=== PATIENT | female | born 1960 | race Caucasian/White ===

== ENCOUNTER 2016-07-09 22:05 | Emergency (ER) | payer OTHER ==
[2016-07-09 22:19] VITALS: BP 135/86; PULSE 82; RESP 18; TEMP 98
[2016-07-09] MEDS ORDERED: HYDROmorphone 1 MG/ML 1 ML SYRINGE IM STA (22:43)
[2016-07-09] MEDS ORDERED: ONDANSETRON ODT 4 MG TAB PO STA (22:51)
--- NOTE | 2016-07-09 22:59 | ED ---
Back Pain HPI - General Chief Complaint: Back Pain/Injury Stated Complaint: Back Pain Time Seen by Provider: 07/09/16 22:22 Source: patient, RN notes reviewed Limitations: no limitations - History of Present Illness Initial Comments: Patient is a 55-year-old female presents to the emergency room for evaluation of low back pain. Patient states she has a history of chronic low back pain. Patient states she has on and off exacerbations of her low back pain every few months. Patient states she had an MRI of her lower back in March which results in degenerative disc disease and nerve impingement. Patient states over the past 4 days patient began developing left low back pain radiating to her buttocks. Patient states that she's had sciatica before and this feels similar. Patient denies any recent trauma to her back or falls. Patient denies numbness or tingling going down her legs. Patient denies anesthesia. Patient denies urinary or fecal incontinence. Patient states that she has Ava and tramadol at home. Patient states none of her pain medications are relieving her symptoms. - Related Data Home Medications Medication Instructions Recorded Confirmed Aspirin 81 mg PO DAILY 11/14/13 07/09/16 Levothyroxine Sodium [Synthroid] 137 mcg PO DAILY 11/14/13 07/09/16 Losartan-Hctz 50-12.5 mg [Hyzaar 1 each PO DAILY 11/14/13 07/09/16 50-12.5] Omeprazole [PriLOSEC] 20 mg PO AC-BRKFST 11/14/13 07/09/16 Previous Rx's Medication Instructions Recorded Hydrocodone/Acetaminophen [Ava 1 - 2 each PO Q4HR PRN #10 tab 11/16/13 5-325] Allergies Allergy/AdvReac Type Severity Reaction Status Date / Time prednisone Allergy Swelling Verified 07/09/16 22:18 propoxyphene napsylate Allergy Swelling Verified 07/09/16 22:18 [From [facility]-N 100] Review of Systems ROS Statement: Those systems with pertinent positive or pertinent negative responses have been documented in the HPI. ROS Other: All systems not noted in ROS Statement are negative. Past Medical History Past Medical History: Cancer, COPD, CVA/TIA, GERD/Reflux, Hypertension, Osteoarthritis (OA), Thyroid Disorder Additional Past Medical History / Comment(s): hx ulcer, thyroid cancer History of Any Multi-Drug Resistant Organisms: None Reported Past Surgical History: Back Surgery, Cholecystectomy, Orthopedic Surgery, Tubal Ligation Additional Past Surgical History / Comment(s): thyroidectomy, spinal fusion, rt shoulder surgery,rt foot suregery Past Anesthesia/Blood Transfusion Reactions: Motion Sickness, Postoperative Nausea & Vomiting (PONV) Past Psychological History: No Psychological Hx Reported Smoking Status: Never smoker Past Alcohol Use History: None Reported Past Drug Use History: None Reported - Past Family History Sister(s) Family Medical History: Deep Vein Thrombosis (DVT) General Exam - General Exam Comments Initial Comments: Sitting in exam room in no acute distress. Limitations: no limitations General appearance: alert, in no apparent distress Head exam: Present: atraumatic, normocephalic, normal inspection Eye exam: Present: normal appearance ENT exam: Present: normal exam Neck exam: Present: normal inspection Respiratory exam: Absent: respiratory distress Back exam: Present: normal inspection, tenderness (Tenderness on palpating over left sciatic notch). Absent: paraspinal tenderness, vertebral tenderness Expanded Back exam: Sciatic Notch Tenderness: Left, Positive Straight Leg Raise: Left Neurological exam: Present: alert, oriented X3, CN II-XII intact Psychiatric exam: Present: normal affect, normal mood Skin exam: Present: warm, dry, intact, normal color. Absent: rash Course Vital Signs 07/09/16 22:16 Temperature 98.0 F Pulse Rate 82 Respiratory 18 Rate Blood Pressure 135/86 O2 Sat by Pulse 97 Oximetry Medical Decision Making - Medical Decision Making Patient is a 55-year-old female presents to the emergency room for evaluation of acute on chronic exacerbation of low back pain. Patient's symptoms similar to her normal exacerbations. Patient has no neuro deficits. Patient is already on Ava and tramadol at home for pain. Patient is ALLERGIC to prednisone. Patient was given pain medication and advised to follow-up with primary care provider. Patient states she noticed intermittent numbness discussed with her. Return parameters discussed. Case discussed with Dr. Carpenter. Disposition Clinical Impression: Acute exacerbation of chronic low back pain Disposition: HOME SELF-CARE Condition: Good Instructions: Acute Low Back Pain (ED) Additional Instructions: Alternate ice and heat. Continue taking at home pain medications as needed. Please follow up with primary care provider in 1-2 days. If any new symptom arises or symptoms worsen, return to ER as soon as possible. Referrals: Britton Rangel DO [Primary Care Provider] - 1-2 days Time of Disposition: 22:59
== END 2016-07-09 23:05 | disposition home or self-care (01) ==
LOC: EC 22:05
DX: G89.29 Other chronic pain (principal); M54.5 Low back pain; E07.9 Disorder of thyroid, unspecified; I10 Essential (primary) hypertension; K21.9 Gastro-esophageal reflux disease without esophagitis; M19.90 Unspecified osteoarthritis, unspecified site; Z79.899 Other long term (current) drug therapy; Z86.73 Personal history of transient ischemic attack (TIA), and cerebral infarction without residual deficits; Z79.82 Long term (current) use of aspirin; Z88.5 Allergy status to narcotic agent; Z88.8 Allergy status to other drugs, medicaments and biological substances
CPT/HCPCS: 96372; 99283; J1170

== ENCOUNTER 2016-07-10 08:17 | Emergency (ER) | payer OTHER ==
[2016-07-10] MEDS ORDERED: DIAZEPAM 5 MG/ML 2 ML SYRINGE IVP STA (08:59)
[2016-07-10] MEDS ORDERED: HYDROmorphone 1 MG/ML 1 ML SYRINGE IVP STA (09:00)
[2016-07-10] MEDS ORDERED: ONDANSETRON 4 MG/2 ML VIAL IVP STA (09:00)
--- NOTE | 2016-07-10 09:04 | ED ---
Back Pain HPI - General Chief Complaint: Back Pain/Injury Stated Complaint: back pain Time Seen by Provider: 07/10/16 08:33 Source: patient, family, EMS, RN notes reviewed Mode of arrival: EMS Limitations: physical limitation - History of Present Illness Initial Comments: 55-year-old female presents emergency department via EMS chief complaint back pain. Patient states that the back pain started last few days. Patient was seen in emergency department last night given IM injection of pain meds. Patient states that at the edge off but states that she woke up in worse pain. Patient has a known back problem states that she had surgery [address] Herrera. She states she had a fusion performed. Patient states that in March she squatted down in her back locked up. Ever since she's had some increase in pain. She had recent MRI in April which showed progressive changes. Patient has an appointment coming up with her surgeon. Patient is on tramadol, Flexeril at home. Patient states he was given Medina in the past but states he was too strong and she did not like it. Patient denies any bowel bladder incontinence or retention. She states pain radiates always down her left leg. Patient currently has a boot on her right lower leg secondary to tendon surgery by Dr. Rondon. Patient states that this has been given her more issues since wearing the boot. - Related Data Home Medications Medication Instructions Recorded Confirmed Aspirin 81 mg PO DAILY 11/14/13 07/09/16 Levothyroxine Sodium [Synthroid] 137 mcg PO DAILY 11/14/13 07/09/16 Losartan-Hctz 50-12.5 mg [Hyzaar 1 each PO DAILY 11/14/13 07/09/16 50-12.5] Omeprazole [PriLOSEC] 20 mg PO AC-BRKFST 11/14/13 07/09/16 Previous Rx's Medication Instructions Recorded Hydrocodone/Acetaminophen [Medina 1 - 2 each PO Q4HR PRN #10 tab 11/16/13 5-325] Diazepam [Valium] 5 mg PO BID #14 tab 07/10/16 HYDROcodone/APAP 7.5-325MG [Medina 1 tab PO Q6HR PRN #20 tab 07/10/16 7.5-325] Ondansetron Odt [Zofran Odt] 4 mg PO Q8HR PRN #10 tab 07/10/16 methylPREDNISolone [Medrol Dose 4 mg PO DIRECTED #1 pack 07/10/16 Pack] Allergies Allergy/AdvReac Type Severity Reaction Status Date / Time prednisone Allergy Swelling Verified 07/10/16 08:54 propoxyphene napsylate Allergy Swelling Verified 07/10/16 08:54 [[facility] Review of Systems ROS Statement: Those systems with pertinent positive or pertinent negative responses have been documented in the HPI. ROS Other: All systems not noted in ROS Statement are negative. Past Medical History Past Medical History: Cancer, COPD, CVA/TIA, GERD/Reflux, Hypertension, Osteoarthritis (OA), Thyroid Disorder Additional Past Medical History / Comment(s): hx ulcer, thyroid cancer History of Any Multi-Drug Resistant Organisms: None Reported Past Surgical History: Back Surgery, Cholecystectomy, Orthopedic Surgery, Tubal Ligation Additional Past Surgical History / Comment(s): thyroidectomy, spinal fusion, rt shoulder surgery,rt foot suregery Past Anesthesia/Blood Transfusion Reactions: Motion Sickness, Postoperative Nausea & Vomiting (PONV) Past Psychological History: No Psychological Hx Reported Smoking Status: Never smoker Past Alcohol Use History: None Reported Past Drug Use History: None Reported - Past Family History Sister(s) Family Medical History: Deep Vein Thrombosis (DVT) General Exam Limitations: physical limitation General appearance: alert, in no apparent distress Head exam: Present: atraumatic, normocephalic, normal inspection Respiratory exam: Present: normal lung sounds bilaterally. Absent: respiratory distress, wheezes, rales, rhonchi, stridor Cardiovascular Exam: Present: regular rate, normal rhythm, normal heart sounds. Absent: systolic murmur, diastolic murmur, rubs, gallop, clicks GI/Abdominal exam: Present: soft, normal bowel sounds. Absent: distended, tenderness, guarding, rebound, rigid Extremities exam: Present: other (Boot noted to the right lower extremity Refill less than 2 seconds of lower extremity no rashes noted) Back exam: Present: tenderness (Moderate tonsillar left low back), muscle spasm , paraspinal tenderness. Absent: full ROM (Decreased range of motion secondary to pain), vertebral tenderness Neurological exam: Present: alert, oriented X3, CN II-XII intact, reflexes normal. Absent: motor sensory deficit Course Vital Signs 07/10/16 07/10/16 08:47 09:29 Temperature 97.5 F L Pulse Rate 104 H 98 Respiratory 20 14 Rate Blood Pressure 151/67 117/61 O2 Sat by Pulse 98 100 Oximetry Medical Decision Making - Medical Decision Making 55-year-old female presented emergency from for low back pain. Patient states pain is resolved at this time. Patient's pain is consistent with L5-S1 nerve impingement. Patient does have changes noted on x-ray and previous MRI. Patient's pain may be exacerbated by wearing her boot on her right leg. She is walking awkwardly. Patient doesn't appointment with Dr. Leal coming up. Return parameters were discussed. Disposition Clinical Impression: Acute exacerbation of chronic low back pain, Lumbar radiculopathy, acute Disposition: HOME SELF-CARE Condition: Stable Instructions: Acute Low Back Pain (ED) Additional Instructions: Please return to the Emergency Department if symptoms worsen or any other concerns. Prescriptions: Diazepam [Valium] 5 mg PO BID #14 tab HYDROcodone/APAP 7.5-325MG [Medina 7.5-325] 1 tab PO Q6HR PRN #20 tab PRN Reason: Pain Ondansetron Odt [Zofran Odt] 4 mg PO Q8HR PRN #10 tab PRN Reason: Nausea methylPREDNISolone [Medrol Dose Pack] 4 mg PO DIRECTED #1 pack Time of Disposition: 10:22
--- NOTE | 2016-07-10 10:04 | XR ---
EXAMINATION TYPE: XR lumbosacral spine min 4V DATE OF EXAM: 07/10/2016 10:01 AM COMPARISON: MRI 05/01/2016 HISTORY: Low back spasms TECHNIQUE: 5 view lumbar spine FINDINGS: There is pedicle screws present L5-S1. There 5 lumbar-type bodies. A through L4 pedicles ar e intact. No spondylolytic defects are evident. Laminectomy has been performed at L5. There is narrow ing at L5-S1. IMPRESSION: 1. Post fixation L5-S1
[2016-07-10 11:00] VITALS: BP 102/57; PULSE 103; RESP 18; TEMP 97.9
== END 2016-07-10 11:00 | disposition home or self-care (01) ==
LOC: EC 08:17
DX: M54.16 Radiculopathy, lumbar region (principal); G89.29 Other chronic pain; I10 Essential (primary) hypertension; E07.9 Disorder of thyroid, unspecified; M19.90 Unspecified osteoarthritis, unspecified site; K21.9 Gastro-esophageal reflux disease without esophagitis; Z98.890 Other specified postprocedural states; Z88.5 Allergy status to narcotic agent; Z88.8 Allergy status to other drugs, medicaments and biological substances; Z79.82 Long term (current) use of aspirin; Z79.899 Other long term (current) drug therapy; Z85.850 Personal history of malignant neoplasm of thyroid
CPT/HCPCS: 99284; 96374; 96375 ×2; 72110; J3360; J2405; J1170

== ENCOUNTER → 2017-01-11 | Outpatient (CLI) | payer OTHER ==
[2017-01-11 17:30] LABS: EKG EKG PERFORMED
[2017-01-11 17:50] LABS: Basophils # (A) 0.1 k/uL (0-0.2); Basophils % (A) 1 %; CH 30.9; CHCM 34.4; Eosinophils # (A) 0.3 k/uL (0-0.7); Eosinophils % (A) 4 %; HDW 2.75; HGB 13.8 gm/dL (11.4-16.0); Luc # (Auto) 0.23; Luc % (Auto) 3; Lymphocytes # (A) 2.1 k/uL (1.0-4.8); Lymphocytes % (A) 32 %; MCH 30.4 pg (25.0-35.0); MCHC 33.6 g/dL (31.0-37.0); MCV 90.3 fL (80.0-100.0); Mean Platelet Volume 8.4; Monocytes # (A) 0.4 k/uL (0-1.0); Monocytes % (A) 6 %; Neutrophils # (A) 3.6 k/uL (1.3-7.7); Neutrophils % (A) 54 %; RBC 4.54 m/uL (3.80-5.40); RDW 14.3 % (11.5-15.5); WBC 6.6 k/uL (3.8-10.6); WBC (Perox) 6.57
[2017-01-11 17:53] LABS: Appearance,Urine Clear (Clear); Bilirubin,Urine Negative (Negative); Glucose,Urine (UA) Negative (Negative); Ketones,Urine Negative (Negative); Leukocyte Esterase,Urine Small (Negative); Nitrite,Urine Negative (Negative); PH, Urine 6.5 (5.0-8.0); Particle Count 3668; Protein,Urine Negative (Negative); RBC,Urine 1 /hpf (0-5); Specific Gravity,Urine 1.008 (1.001-1.035); Squamous Epithelial Cell,Urine 7 /hpf (0-4); UA Billing (MACRO vs. MICRO) MICRO; Urobilinogen,Urine <2.0 mg/dL (<2.0); WBC,Urine 5 /hpf (0-5)
[2017-01-11 17:58] LABS: Partial Thromboplastin Time 24.3 sec (22.0-30.0); Prothrombin Time 9.9 sec (9.0-12.0)
[2017-01-11 18:16] LABS: ALT 44 U/L (9-52); AST 25 U/L (14-36); Alkaline Phosphatase 68 U/L (38-126); Anion Gap 10 mmol/L; Blood Urea Nitrogen 11 mg/dL (7-17); Calcium 9.7 mg/dL (8.4-10.2); Carbon Dioxide 35 mmol/L (22-30); Chloride 99 mmol/L (98-107); Glucose 95 mg/dL (74-99); Non-African American GFR(MDRD) >60 (>60 ml/min/1.73 sqM); Potassium 3.2 mmol/L (3.5-5.1); Sodium 144 mmol/L (137-145); Total Bilirubin 0.3 mg/dL (0.2-1.3); Total Protein 7.4 g/dL (6.3-8.2)
== END | disposition home or self-care (01) ==
LOC: LABWHC1 17:19
DX: M48.00 Spinal stenosis, site unspecified (principal)
CPT/HCPCS: 36415; 80053; 81001; 85025; 85610; 85730; 93005

== ENCOUNTER → 2017-02-22 | Outpatient (CLI) | payer OTHER ==
--- NOTE | 2017-02-22 12:14 | XR ---
EXAMINATION TYPE: XR lumbar spine 2 or 3V DATE OF EXAM: 02/22/2017 CLINICAL HISTORY: Lumbar fusion surgery 3 weeks ago. TECHNIQUE: Frontal and lateral images of the lumbar spine are obtained. COMPARISON: Lumbar spine x-ray July 10, 2016 FINDINGS: There are 5 lumbar type vertebral bodies redemonstrated. There is interval removal of prio r posterior fusion hardware. There is new metallic disc material with bilateral posterior interpedicu lar rods and screws at L4-L5 level. High density material lumbosacral junction is redemonstrated. Ali gnment is stable and satisfactory. Vertebral body heights and disc space heights are fairly well-main tained. There are laminectomy defects and spinous process resection in lower lumbar levels. Cholecyst ectomy clips are redemonstrated. IMPRESSION: New surgical change L4-L5 level with stable and satisfactory alignment noted.
== END ==
LOC: RADXRMAIN 11:36
DX: M47.817 Spondylosis without myelopathy or radiculopathy, lumbosacral region (principal)
CPT/HCPCS: 72100

== ENCOUNTER → 2017-04-09 | Outpatient (CLI) | payer OTHER ==
--- NOTE | 2017-04-09 11:35 | XR ---
Lumbar spine HISTORY: Low back pain 3 views of the lumbar spine correlated to prior exam 02/22/2017 Postop changes status post lumbar fusion L4-5 are again noted. Surgical clips are present in the righ t upper quadrant. Bone mineralization is reduced. Lumbar vertebral bodies show stable height and alig nment. Prior fusion change at L5-S1 is again seen. Sclerosis in the posterior elements of the lumbar spine compatible with facet arthropathy. Loss of disc height present at L2-3, L1-2. Multilevel spondy losis. IMPRESSION: Stable postoperative findings. Degenerative disc disease, facet arthropathy, osteopenia
== END | disposition home or self-care (01) ==
LOC: LABWHC1 09:34
PROVIDERS: ATTEND Physician Assistant
DX: M51.36 Other intervertebral disc degeneration, lumbar region (principal); M46.96 Unspecified inflammatory spondylopathy, lumbar region; M85.88 Other specified disorders of bone density and structure, other site
CPT/HCPCS: 72100

== ENCOUNTER → 2017-06-07 | Outpatient (CLI) | payer OTHER ==
--- NOTE | 2017-06-07 15:34 | BD ---
EXAMINATION TYPE: MG DEXA axial skeleton. DATE OF EXAM: 06/07/2017 COMPARISON: 2014 CLINICAL HISTORY: disorder of bone Height: 5'3 /2 Weight: 168 FRAX RISK QUESTIONS: Alcohol (3 or more units per day): no Family History (Parent hip fracture): no Glucocorticoids (More than 3mos): no (Ex: prednisone, prednisolone, methylprednisolone, dexamethasone, and hydrocortisone). History of Fracture in Adulthood: yes Secondary Osteoporosis: 1. Type 1 Diabetes: no 2. Hyperthyroidism: no 3. Menopause before 45: no 4. Malnutrition: no 5. Chronic liver disease: no Rheumatoid Arthritis: no Current Tobacco Use: no RISK FACTORS HISTORY OF: Surgery to Spine When: 2017 Family History of Osteoporosis: Active: Diet low in dairy products/other sources of calcium: Postmenopausal woman: MEDICATIONS: Thyroid Medications: Which medication: Levothyroxine How Lon years Additional Medications: blood pressure, cholesterol, neurotin, Additional History: degenerative discs, thyroid cancer EXAM MEASUREMENTS: Bone mineral densitometry was performed using the [employer] System. Bone mineral density about the R hip (g/cm2): 0.861 Bone mineral density about the L hip (g/cm2): 0.861 T Score values are as follows: -----R Neck: -0.1 -----L Neck: -0.1 -----R Total: -0.7 -----L Total: -0.7 Bone mineral density has: Decreased -1.3% since study of: 12/24/2014 IMPRESSION: Normal (Values between +1 and -1 indicate normal bone mass). Consider repeating this study in 5 year s or sooner if there is some new clinical indication. NOTE: T-SCORE=SD OF THE YOUNG ADULT MEAN.
--- NOTE | 2017-06-08 10:01 | MM ---
Reason for exam: screening (asymptomatic). Last mammogram was performed 1 year and 1 month ago. History: Patient is postmenopausal and has history of other cancer at age 48. Family history of breast cancer in maternal grandmother. Benign ultrasound-guided cyst aspiration of the left breast, January 02, 2003. Cyst aspiration of the left breast. Took hormonal contraceptives for 5 years beginning at age 20. Taking other hormone. Physical Findings: A clinical breast exam by your physician is recommended on an annual basis and results should be correlated with mammographic findings. MG 3D Screening Mammo W/Cad Bilateral CC and MLO view(s) were taken. Prior study comparison: April 30, 2016, bilateral MG screening mammo w CAD. December 24, 2014, bilateral MG screening mammo w CAD. The breast tissue is heterogeneously dense. This may lower the sensitivity of mammography. Previous mammotome biopsy in the left breast. There is chronic nodularity in the left breast. There is no discrete abnormality. No significant changes when compared with prior studies. ASSESSMENT: Benign, BI-RAD 2 RECOMMENDATION: Routine screening mammogram of both breasts in 1 year.
== END | disposition home or self-care (01) ==
LOC: RADMAMWWP 13:40
PROVIDERS: ATTEND Obstetrics & Gynecology
DX: Z12.31 Encounter for screening mammogram for malignant neoplasm of breast (principal); Z13.820 Encounter for screening for osteoporosis; M89.9 Disorder of bone, unspecified; Z87.39 Personal history of other diseases of the musculoskeletal system and connective tissue
CPT/HCPCS: 77063; 77067; 77080

== ENCOUNTER → 2017-06-14 | Outpatient (CLI) | payer OTHER ==
--- NOTE | 2017-06-14 21:53 | MR ---
EXAMINATION TYPE: MR lumbar spine wo con DATE OF EXAM: 06/14/2017 5:50 PM COMPARISON: NONE HISTORY: Low back pressure, surgery Jan 2017 Multiplanar, MultiSpin echo imaging of the lumbar spine was performed. L1-L2: Normal disc appearance without desiccation. No herniation, protrusion or disc bulging. No ca nal stenosis is present. Foramina are patent bilaterally. L2-L3: Mild disc desiccation. No significant disc bulging. No herniation protrusion or central stenos is. Neural foramina are patent bilaterally. L3-L4: Mild disc desiccation. No significant disc bulging. No herniation protrusion or central stenos is. Neural foramina are patent bilaterally. L4-L5: Decompressive laminectomy with pedicular screws. Extensive streak artifact limits evaluation. Intervertebral vertebral body spacer. Alignment is anatomic. No definite evidence for recurrent or re sidual disease although the lack of contrast limits evaluation. L5-S1: Decompressive laminectomy with pedicular screws. Extensive streak artifact limits evaluation. Intervertebral vertebral body spacer. Alignment is anatomic. No definite evidence for recurrent or re sidual disease although the lack of contrast limits evaluation. Lumbar segments are intact. No paraspinal masses are identified. Scattered vertebral Hemangiomas not ed. Conus medullaris has a normal appearance. IMPRESSION: 1. Mild degenerative disc disease and disc bulging at L2-3 and L3-4. 2. Postoperative changes at L4-5 and L5-S1 as discussed above.
== END | disposition home or self-care (01) ==
LOC: RADMRIMAIN 16:26
DX: M51.16 Intervertebral disc disorders with radiculopathy, lumbar region (principal); Z98.890 Other specified postprocedural states
CPT/HCPCS: 72148

== ENCOUNTER → 2017-06-14 | Outpatient (CLI) | payer OTHER ==
--- NOTE | 2017-06-15 10:32 | XR ---
EXAMINATION TYPE: XR lumbar spine 2 or 3V DATE OF EXAM: 06/14/2017 COMPARISON: NONE HISTORY: Lumbar spondylosis with radiculopathy TECHNIQUE: Three-view lumbar spine FINDINGS: Pedicle screws and fixation rods are present L4-L5. Laminectomy has been performed L4-L5. The L1-L3 pedicles are intact. Some disc space narrowing at L1-3 is present. There is a disc spacer a t L4-5. Fusion may be present L5-S1 disc space. IMPRESSION: 1. Postsurgical changes through the lumbar spine. 2. Acute changes are not evident.
== END | disposition home or self-care (01) ==
LOC: RADXRMAIN 16:10
DX: M47.26 Other spondylosis with radiculopathy, lumbar region (principal); Z98.890 Other specified postprocedural states
CPT/HCPCS: 72100

== ENCOUNTER → 2017-08-17 | Outpatient (CLI) | payer OTHER ==
[2017-08-17 10:54] LABS: Basophils # (A) 0.1 k/uL (0-0.2); Basophils % (A) 1 %; Eosinophils # (A) 0.2 k/uL (0-0.7); Eosinophils % (A) 3 %; HGB 13.4 gm/dL (11.4-16.0); Lymphocytes % (A) 33 %; MCH 29.7 pg (25.0-35.0); MCHC 34.5 g/dL (31.0-37.0); Mean Platelet Volume 7.9; Monocytes # (A) 0.3 k/uL (0-1.0); Monocytes % (A) 6 %; Neutrophils # (A) 3.3 k/uL (1.3-7.7); Neutrophils % (A) 55 %; Platelet Count 223 k/uL (150-450); RBC 4.54 m/uL (3.80-5.40); WBC 6.1 k/uL (3.8-10.6)
[2017-08-17 11:40] LABS: ALT 23 U/L (9-52); AST 19 U/L (14-36); Albumin 4.1 g/dL (3.5-5.0); Alkaline Phosphatase 90 U/L (38-126); Anion Gap 10 mmol/L; Blood Urea Nitrogen 16 mg/dL (7-17); Calcium 9.6 mg/dL (8.4-10.2); Carbon Dioxide 35 mmol/L (22-30); Chloride 96 mmol/L (98-107); Glucose 97 mg/dL (74-99); Potassium 3.7 mmol/L (3.5-5.1); Sodium 141 mmol/L (137-145); Total Bilirubin 0.3 mg/dL (0.2-1.3)
[2017-08-17 11:55] LABS: T4, Free (Free Thyroxine) 1.77 ng/dL (0.78-2.19)
[2017-08-17 16:16] LABS: Vitamin D 25 Hydroxy 36.8 ng/mL (30.0-100.0)
== END | disposition home or self-care (01) ==
LOC: LABWHC1 10:00
PROVIDERS: ATTEND Physician Assistant
DX: E55.9 Vitamin D deficiency, unspecified (principal); R41.3 Other amnesia
CPT/HCPCS: 36415; 80053; 82306; 82607; 84207; 84439; 84443; 84481; 85025

== ENCOUNTER 2017-10-31 11:09 | Observation (INO) | payer OTHER ==
[2017-10-31] MEDS ORDERED: SODIUM CHLORIDE 0.9% 1,000 ML IV STA (12:09)
--- NOTE | 2017-10-31 12:21 | ED ---
General Adult HPI - General Chief complaint: Recheck/Abnormal Lab/Rx Stated complaint: Abnormal EKG Time Seen by Provider: 10/31/17 12:02 Source: patient, RN notes reviewed Mode of arrival: wheelchair Limitations: no limitations - History of Present Illness Initial comments: Patient's a 56-year-old female presents emergency room today with a chief complaint of neck and chest pain. Patient does admit that over last 3 or 4 days she's noticed that when she bends forward she feels that it is coming off her airway. She feels like there is a mass in her neck. She has mid to a history of thyroid cancer. States part of her thyroid was removed. Patient states when she stands straight back up the symptoms are relieved. She doesn't that last night she was woken up with chest pain. States woke or carotid sleep. She does admit that she still feels some discomfort to the left side of the chest wall. She does admit that she went to the clinic this morning had a chest x-ray performed. She states she was advised coming here to the emergency room. She discussed with her family physician as well. Patient currently rates the chest discomfort 2/10. Denies any neck pain at this time. She does admit that 2 days ago when she had the neck pain she then coughed and a blood clot come out. Patient denies any recent fever, chills, back pain, abdominal pain, nausea or vomiting, numbness or tingling, dysuria or hematuria, constipation or diarrhea, headaches or visual changes, or any other complaints. - Related Data Home Medications Medication Instructions Recorded Confirmed Aspirin 81 mg PO DAILY 11/14/13 10/31/17 Gabapentin 600 mg PO TID 10/31/17 10/31/17 Levothyroxine Sodium [Synthroid] 125 mcg PO DAILY 10/31/17 10/31/17 Losartan/Hydrochlorothiazide 1 tab PO DAILY 10/31/17 10/31/17 [Hyzaar 100-12.5 Tablet] Pantoprazole Sodium [Protonix] 40 mg PO BID 10/31/17 10/31/17 Pravastatin Sodium [Pravachol] 20 mg PO HS 10/31/17 10/31/17 Allergies Allergy/AdvReac Type Severity Reaction Status Date / Time propoxyphene napsylate Allergy Swelling Verified 10/31/17 11:48 [From Darvocet-N 100] adhesive tape AdvReac Itching Verified 10/31/17 11:48 Review of Systems ROS Statement: Those systems with pertinent positive or pertinent negative responses have been documented in the HPI. ROS Other: All systems not noted in ROS Statement are negative. Past Medical History Past Medical History: Cancer, COPD, CVA/TIA, GERD/Reflux, Hypertension, Osteoarthritis (OA), Thyroid Disorder Additional Past Medical History / Comment(s): hx ulcer, thyroid cancer History of Any Multi-Drug Resistant Organisms: None Reported Past Surgical History: Back Surgery, Cholecystectomy, Orthopedic Surgery, Tubal Ligation Additional Past Surgical History / Comment(s): thyroidectomy, spinal fusion, rt shoulder surgery,rt foot suregery Past Anesthesia/Blood Transfusion Reactions: Motion Sickness, Postoperative Nausea & Vomiting (PONV) Past Psychological History: No Psychological Hx Reported Smoking Status: Never smoker Past Alcohol Use History: None Reported Past Drug Use History: None Reported - Past Family History Sister(s) Family Medical History: Deep Vein Thrombosis (DVT) General Exam - General Exam Comments Initial Comments: General: The patient is awake and alert, in no distress, and does not appear acutely ill. Eye: Pupils are equal, round and reactive to light, extra-ocular movements are intact. No nystagmus. There is normal conjunctiva bilaterally. No signs of icterus. Ears, nose, mouth and throat: There are moist mucous membranes and no oral lesions. Neck: The neck is supple, there is no tenderness or JVD. Cardiovascular: There is a regular rate and rhythm. No murmur, rub or gallop is appreciated. Respiratory: Lungs are clear to auscultation, respirations are non-labored, breath sounds are equal. No wheezes, stridor, rales, or rhonchi. Gastrointestinal: Soft, non-distended, non-tender abdomen without masses or organomegaly noted. There is no rebound or guarding present. No CVA tenderness. Musculoskeletal: Normal ROM, no tenderness. Strength 5/5. Sensation intact. Pulses equal bilaterally 2+. Neurological: A&O x 3. CN II-XII intact, There are no obvious motor or sensory deficits. Coordination appears grossly intact. Speech is normal. Skin: Skin is warm and dry and no rashes or lesions are noted. Psychiatric: Cooperative, appropriate mood & affect, normal judgment. Limitations: no limitations Course Vital Signs 10/31/17 10/31/17 10/31/17 11:14 12:36 13:42 Temperature 97.9 F 97.0 F L Pulse Rate 70 69 Respiratory 18 18 18 Rate Blood Pressure 139/80 145/82 O2 Sat by Pulse 100 100 Oximetry EKG Findings - EKG Comments: EKG Findings:: EKG performed at 1311: Shows normal sinus rhythm at 60 bpm. AL interval 164. QRS 90. QT/QTc 440/440. No acute ST changes. Medical Decision Making - Medical Decision Making Patient's a potassium 3.2. Patient's cardiac enzymes are negative. EKG shows normal acute changes. CT of the chest is negative for any evidence of a PE. No abnormalities seen in the CT of the neck to cover patient's symptoms. She is resting comfortably. Patient will be admitted for serial enzymes that she had chest pain that woke her up out of sleep last night. - Lab Data Result diagrams: 10/31/17 12:58 10/31/17 12:58 Lab Results 10/31/17 10/31/17 10/31/17 Range/Units 12:58 12:58 12:58 WBC 5.2 (3.8-10.6) k/uL RBC 4.92 (3.80-5.40) m/uL Hgb 14.6 (11.4-16.0) gm/dL Hct 41.4 (34.0-46.0) % MCV 84.1 (80.0-100.0) fL MCH 29.8 (25.0-35.0) pg MCHC 35.4 (31.0-37.0) g/dL RDW 13.0 (11.5-15.5) % Plt Count 210 (150-450) k/uL Neutrophils % 54 % Lymphocytes % 35 % Monocytes % 6 % Eosinophils % 2 % Basophils % 1 % Neutrophils # 2.8 (1.3-7.7) k/uL Lymphocytes # 1.8 (1.0-4.8) k/uL Monocytes # 0.3 (0-1.0) k/uL Eosinophils # 0.1 (0-0.7) k/uL Basophils # 0.0 (0-0.2) k/uL PT (9.0-12.0) sec INR (<1.2) APTT (22.0-30.0) sec Sodium 142 (137-145) mmol/L Potassium 3.2 L (3.5-5.1) mmol/L Chloride 95 L (98-107) mmol/L Carbon Dioxide 34 H (22-30) mmol/L Anion Gap 13 mmol/L BUN 18 H (7-17) mg/dL Creatinine 0.64 (0.52-1.04) mg/dL Est GFR (CKD-EPI)AfAm >90 (>60 ml/min/1.73 sqM) Est GFR (CKD-EPI)NonAf >90 (>60 ml/min/1.73 sqM) Glucose 85 (74-99) mg/dL Calcium 9.5 (8.4-10.2) mg/dL Total Bilirubin 0.4 (0.2-1.3) mg/dL AST 26 (14-36) U/L ALT 36 (9-52) U/L Alkaline Phosphatase 74 (38-126) U/L Total Creatine Kinase 209 H (30-135) U/L CK-MB (CK-2) 2.5 H* (0.0-2.4) ng/mL CK-MB (CK-2) Rel Index 1.2 Troponin I <0.012 (0.000-0.034) ng/mL Total Protein 7.4 (6.3-8.2) g/dL Albumin 4.5 (3.5-5.0) g/dL 10/31/17 Range/Units 12:58 WBC (3.8-10.6) k/uL RBC (3.80-5.40) m/uL Hgb (11.4-16.0) gm/dL Hct (34.0-46.0) % MCV (80.0-100.0) fL MCH (25.0-35.0) pg MCHC (31.0-37.0) g/dL RDW (11.5-15.5) % Plt Count (150-450) k/uL Neutrophils % % Lymphocytes % % Monocytes % % Eosinophils % % Basophils % % Neutrophils # (1.3-7.7) k/uL Lymphocytes # (1.0-4.8) k/uL Monocytes # (0-1.0) k/uL Eosinophils # (0-0.7) k/uL Basophils # (0-0.2) k/uL PT 9.8 (9.0-12.0) sec INR 1.0 (<1.2) APTT 24.2 (22.0-30.0) sec Sodium (137-145) mmol/L Potassium (3.5-5.1) mmol/L Chloride (98-107) mmol/L Carbon Dioxide (22-30) mmol/L Anion Gap mmol/L BUN (7-17) mg/dL Creatinine (0.52-1.04) mg/dL Est GFR (CKD-EPI)AfAm (>60 ml/min/1.73 sqM) Est GFR (CKD-EPI)NonAf (>60 ml/min/1.73 sqM) Glucose (74-99) mg/dL Calcium (8.4-10.2) mg/dL Total Bilirubin (0.2-1.3) mg/dL AST (14-36) U/L ALT (9-52) U/L Alkaline Phosphatase (38-126) U/L Total Creatine Kinase (30-135) U/L CK-MB (CK-2) (0.0-2.4) ng/mL CK-MB (CK-2) Rel Index Troponin I (0.000-0.034) ng/mL Total Protein (6.3-8.2) g/dL Albumin (3.5-5.0) g/dL Disposition Clinical Impression: Chest pain Disposition: ADMITTED IP TO THIS [facility] Condition: Stable Is patient prescribed a controlled substance at d/c from ED?: No Referrals: Britton Rangel DO [Primary Care Provider] - 1-2 days Time of Disposition: 15:15
[2017-10-31 13:15] LABS: Basophils % (A) 1 %; Eosinophils # (A) 0.1 k/uL (0-0.7); Eosinophils % (A) 2 %; HCT 41.4 % (34.0-46.0); HGB 14.6 gm/dL (11.4-16.0); Lymphocytes # (A) 1.8 k/uL (1.0-4.8); Lymphocytes % (A) 35 %; MCH 29.8 pg (25.0-35.0); MCHC 35.4 g/dL (31.0-37.0); MCV 84.1 fL (80.0-100.0); Monocytes # (A) 0.3 k/uL (0-1.0); Monocytes % (A) 6 %; Neutrophils # (A) 2.8 k/uL (1.3-7.7); Neutrophils % (A) 54 %; Platelet Count 210 k/uL (150-450); RBC 4.92 m/uL (3.80-5.40); WBC 5.2 k/uL (3.8-10.6)
[2017-10-31 13:22] LABS: Partial Thromboplastin Time 24.2 sec (22.0-30.0); Prothrombin Time 9.8 sec (9.0-12.0)
[2017-10-31 13:24] LABS: ALT 36 U/L (9-52); AST 26 U/L (14-36); Albumin 4.5 g/dL (3.5-5.0); Alkaline Phosphatase 74 U/L (38-126); Anion Gap 13 mmol/L; Blood Urea Nitrogen 18 mg/dL (7-17); Calcium 9.5 mg/dL (8.4-10.2); Carbon Dioxide 34 mmol/L (22-30); Chloride 95 mmol/L (98-107); Glucose 85 mg/dL (74-99); Potassium 3.2 mmol/L (3.5-5.1); Sodium 142 mmol/L (137-145); Total Bilirubin 0.4 mg/dL (0.2-1.3); Total Protein 7.4 g/dL (6.3-8.2)
[2017-10-31 13:49] LABS: Creatine Kinase 209 U/L (30-135)
[2017-10-31 14:01] LABS: Troponin I <0.012 ng/mL (0.000-0.034)
[2017-10-31 14:08] LABS: Creatine Kinase MB 2.5 ng/mL (0.0-2.4)
--- NOTE | 2017-10-31 14:56 | CT ---
EXAMINATION TYPE: CT soft tissue neck w con DATE OF EXAM: 10/31/2017 COMPARISON: NONE HISTORY: Patient complains of a lumplike sensation that pressed against her bronchus at approximate l evel of sternoclavicular joints. Patient had episode of large clotlike hemoptysis. CT DLP: 362.66 mGycm CONTRAST: CT scan of the neck is performed with IV Contrast, patient injected with 100 mL of Isovue 370. Contrast enhanced CT of the neck was performed from the skull base through the lung apices. At the site of clinical concern I do not see evidence for nodule or mass. AIRWAY: The supraglottic, glottic, and subglottic portions of the airway appear patent and free of mass. SALIVARY GLANDS: The submandibular and parotid glands are free of mass or inflammatory process. THYROID GLAND: Right-sided thyroidectomy change. Mild heterogeneity of the left thyroid lobe. Tiny no dule suspected. LYMPH NODES: No adenopathy seen greater than 1cm. LUNG APICES: No nodule or mass is seen. OTHER: Vascular structures are patent. No significant degenerative change of the cervical spine. N o abscess seen. IMPRESSION: 1. No distinct abnormality at the patient's site of clinical concern. 2. Mild fullness left thyroid lobe. Right thyroidectomy change.
--- NOTE | 2017-10-31 14:56 | CT ---
EXAMINATION TYPE: CT angio chest DATE OF EXAM: 10/31/2017 COMPARISON: NONE HISTORY: Patient complains of episode of chest pain last night. CT DLP: 527.41 mGycm Automated exposure control for dose reduction was used. CONTRAST: CTA scan of the thorax is performed with IV Contrast, patient injected with 100 mL of Isovue 370, pul monary embolism protocol. MIP images are created and reviewed. 3D reconstructed images are created on an independent workstation and reviewed. FINDINGS: LUNGS: The lungs are grossly clear, there is no concerning parenchymal mass or nodule identified. S ome dependent atelectatic changes are present. There is no pleural effusion or pneumothorax seen. Th e tracheobronchial tree is patent. AORTA: No additional significant abnormality is seen. At the origin of the celiac axis, images 137 t hrough 133 there is questionable periarterial hazy density. MEDIASTINUM: There is satisfactory enhancement of the pulmonary artery and its central branches, ther e is no CT evidence for pulmonary embolism. Poor contrast opacification is noted to the distal subseg mental branches. There are no greater than 1 cm hilar or mediastinal lymph nodes. No pericardial e ffusion is seen. OTHER: 1.5 cm decreased density focus present within the left lobe of liver are statistically likely to represent a cyst. IMPRESSION: NO EVIDENT PULMONARY EMBOLISM WITH LIMITATIONS DESCRIBED. CORRELATE FOR POSSIBLE VASCULITIS.
[2017-10-31] MEDS ORDERED: ASPIRIN 81 MG PO STA (15:13)
[2017-10-31] MEDS ORDERED: SODIUM CHLORIDE 0.9% 1,000 ML IV ONE (15:22)
[2017-10-31] MEDS ORDERED: NITROGLYCERIN SL TABS 0.4 MG TAB SUBLINGUAL PRN (15:22)
[2017-10-31] MEDS ORDERED: Potassium Replacement Protocol 1 EACH MISC MISCELLANE PRN (19:25)
[2017-10-31] MEDS: POTASSIUM CHLORIDE ER 20 MEQ TAB.ER PO SCH ×3 (19:53→22:02)
[2017-10-31] MEDS: GABAPENTIN 300 MG CAP PO SCH ×2 (19:53→23:43)
[2017-10-31] MEDS: PANTOPRAZOLE 40 MG TABLET PO SCH (19:54)
[2017-10-31] MEDS: PRAVASTATIN SODIUM 20 MG TAB PO SCH (19:54)
[2017-10-31 19:59] LABS: Creatine Kinase 157 U/L (30-135)
[2017-10-31 20:13] LABS: Creatine Kinase MB 1.6 ng/mL (0.0-2.4); Troponin I <0.012 ng/mL (0.000-0.034)
[2017-11-01 02:12] LABS: Creatine Kinase 147 U/L (30-135)
[2017-11-01 02:17] LABS: T4, Free (Free Thyroxine) 1.81 ng/dL (0.78-2.19)
[2017-11-01 02:26] LABS: Creatine Kinase MB 1.5 ng/mL (0.0-2.4); Troponin I <0.012 ng/mL (0.000-0.034)
[2017-11-01 06:17] LABS: Basophils % (A) 1 %; Eosinophils # (A) 0.2 k/uL (0-0.7); Eosinophils % (A) 3 %; HCT 40.4 % (34.0-46.0); HGB 13.8 gm/dL (11.4-16.0); Lymphocytes # (A) 1.8 k/uL (1.0-4.8); Lymphocytes % (A) 32 %; MCH 29.3 pg (25.0-35.0); MCHC 34.1 g/dL (31.0-37.0); MCV 85.9 fL (80.0-100.0); Mean Platelet Volume 8.8; Monocytes # (A) 0.4 k/uL (0-1.0); Monocytes % (A) 8 %; Neutrophils % (A) 54 %; Platelet Count 212 k/uL (150-450); RDW 13.2 % (11.5-15.5); WBC 5.5 k/uL (3.8-10.6)
[2017-11-01 06:24] LABS: Anion Gap 10 mmol/L; Blood Urea Nitrogen 14 mg/dL (7-17); Calcium 9.4 mg/dL (8.4-10.2); Carbon Dioxide 33 mmol/L (22-30); Chloride 99 mmol/L (98-107); Cholesterol 141 mg/dL (<200); Glucose 105 mg/dL (74-99); HDL Cholesterol 42 mg/dL (40-60); LDL Cholesterol,Calculated 78 mg/dL (0-99); Potassium 3.4 mmol/L (3.5-5.1); Sodium 142 mmol/L (137-145); Triglycerides 105 mg/dL (<150)
[2017-11-01] MEDS ORDERED: LEVOTHYROXINE 125 MCG TAB PO SCH (06:30)
[2017-11-01] MEDS: GABAPENTIN 300 MG CAP PO SCH ×3 (08:35→20:47)
[2017-11-01] MEDS: PANTOPRAZOLE 40 MG TABLET PO SCH ×2 (08:36→20:48)
[2017-11-01] MEDS: ASPIRIN 81 MG PO SCH (08:36)
[2017-11-01] MEDS ORDERED: ASPIRIN 325 MG TAB PO SCH (09:00)
--- NOTE | 2017-11-01 09:57 | P.CRDCN ---
History of Present Illness Consult date: 11/01/17 Requesting physician: Zay Kinsey Consult reason: chest pain Chief complaint: Chest pain History of present illness: This is a pleasant 57-year-old female with history of thyroid cancer with partial thyroidectomy in the past, history of hypertension, hyperlipidemia , nondiabetic, prior TIA, nonsmoker. She presents to the hospital with symptoms of left-sided chest pressure and heaviness which occurred the night before last. Patient actually went to see her primary care doctor because she' s been having symptoms where she feels like there is a mass or something in her throat. Every time she bends forward, she feels as though there is something at the base of her throat blocking her ability to breathe. 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 Cardiology consultation was requested because of the symptoms of left-sided chest pressure. EKG performed on arrival here showed a normal sinus rhythm with no acute changes.Subsequent EKG shows normal sinus rhythm with no acute changes. CTA of the chest was performed which did not reveal any evidence for pulmonary embolism. 1.5 cm density focus present within the left lobe of the liver likely to represent a cyst. Blood pressure 115/68, heart rate in the 80s, 98% on room air. CBC is normal. Sodium 142, potassium 3.4, BUN 14, creatinine 0.6. Troponins negative 3. TSH 0.1, free T4 1 0.8, free T3 3.5. At the time of my examination this morning, patient denies any chest pain, she does complain of still feeling feeling in her throat, and has a sore throat. Past Medical History Past Medical History: Cancer, COPD, CVA/TIA, GERD/Reflux, Hypertension, Osteoarthritis (OA), Thyroid Disorder Additional Past Medical History / Comment(s): hx ulcer at 20YO, thyroid cancer History of Any Multi-Drug Resistant Organisms: None Reported Past Surgical History: Back Surgery, Cholecystectomy, Orthopedic Surgery, Tubal Ligation Additional Past Surgical History / Comment(s): thyroidectomy, spinal fusion, rt shoulder surgery,rt foot suregery, bladder sling Past Anesthesia/Blood Transfusion Reactions: Motion Sickness, Postoperative Nausea & Vomiting (PONV) Past Psychological History: No Psychological Hx Reported Smoking Status: Never smoker Past Alcohol Use History: None Reported Past Drug Use History: None Reported - Past Family History Sister(s) Family Medical History: Deep Vein Thrombosis (DVT) Medications and Allergies Home Medications Medication Instructions Recorded Confirmed Type Aspirin 81 mg PO DAILY 11/14/13 10/31/17 History Gabapentin 600 mg PO TID 10/31/17 10/31/17 History Levothyroxine Sodium [Synthroid] 125 mcg PO DAILY 10/31/17 10/31/17 History Losartan/Hydrochlorothiazide 1 tab PO DAILY 10/31/17 10/31/17 History [Hyzaar 100-12.5 Tablet] Pantoprazole Sodium [Protonix] 40 mg PO BID 10/31/17 10/31/17 History Pravastatin Sodium [Pravachol] 20 mg PO HS 10/31/17 10/31/17 History Allergies Allergy/AdvReac Type Severity Reaction Status Date / Time propoxyphene napsylate Allergy Swelling Verified 10/31/17 11:48 [From Darvocet-N 100] adhesive tape AdvReac Itching Verified 10/31/17 11:48 Physical Exam Vitals: Vital Signs Temp Pulse Pulse Resp BP BP Pulse Ox 11/01/17 08:40 88 20 11/01/17 08:31 92 16 115/69 98 11/01/17 04:00 16 11/01/17 03:37 98.4 F 86 16 115/67 96 10/31/17 23:51 97.9 F 84 16 117/58 99 10/31/17 19:59 96.3 F L 70 16 124/82 96 10/31/17 18:26 96.6 F L 73 18 132/85 98 10/31/17 18:23 73 18 10/31/17 18:06 96.6 F L 73 18 132/85 98 10/31/17 17:56 97.0 F L 71 18 127/77 97 10/31/17 17:53 71 18 127/77 97 10/31/17 15:56 73 18 145/83 99 10/31/17 13:42 97.0 F L 69 18 145/82 100 10/31/17 12:36 18 10/31/17 11:14 97.9 F 70 18 139/80 100 Intake and Output 10/31/17 11/01/17 11/01/17 22:59 06:59 14:59 Intake Total 240 30 Output Total 200 Balance 240 -170 Intake: Oral 240 30 Output: Urine 200 Other: Voiding Method Toilet Toilet Toilet # Voids 1 1 Weight 72.6 kg PHYSICAL EXAMINATION: GENERAL: Pleasant 57-year-old female complaining of mild sore throat and fullness feeling in the throat this morning. HEENT: Head is atraumatic, normocephalic. Pupils equal, round. Sclera anicteric. Conjunctiva are clear. Mucous membranes of the mouth are moist. Neck is supple. There is no elevated jugular venous pressure.] bruit is heard. HEART EXAMINATION: Heart S1, S2 normal. No murmur or gallop heard. CHEST EXAMINATION: Lungs are clear to auscultation and precussion. No chest wall tenderness is noted on palpation or with deep breathing. ABDOMEN: Soft, nontender. Bowel sounds are heard. No organomegaly noted. EXTREMITIES: 2+ peripheral pulses with no evidence of peripheral edema and no calf tenderness noted. NEUROLOGIC patient is awake, alert and oriented -3. . Results 11/01/17 01:12 11/01/17 01:12 Cardiac Enzymes 10/31/17 10/31/17 10/31/17 Range/Units 12:58 12:58 19:00 AST 26 (14-36) U/L CK-MB (CK-2) 2.5 H* 1.6 (0.0-2.4) ng/mL Troponin I <0.012 <0.012 (0.000-0.034) ng/mL 11/01/17 Range/Units 01:12 AST (14-36) U/L CK-MB (CK-2) 1.5 (0.0-2.4) ng/mL Troponin I <0.012 (0.000-0.034) ng/mL Coagulation 10/31/17 Range/Units 12:58 PT 9.8 (9.0-12.0) sec APTT 24.2 (22.0-30.0) sec Lipids 11/01/17 Range/Units 01:12 Triglycerides 105 (<150) mg/dL Cholesterol 141 (<200) mg/dL HDL Cholesterol 42 (40-60) mg/dL CBC 10/31/17 11/01/17 Range/Units 12:58 01:12 WBC 5.2 5.5 (3.8-10.6) k/uL RBC 4.92 4.70 (3.80-5.40) m/uL Hgb 14.6 13.8 (11.4-16.0) gm/dL Hct 41.4 40.4 (34.0-46.0) % Plt Count 210 212 (150-450) k/uL Comprehensive Metabolic Panel 10/31/17 11/01/17 Range/Units 12:58 01:12 Sodium 142 142 (137-145) mmol/L Potassium 3.2 L 3.4 L (3.5-5.1) mmol/L Chloride 95 L 99 (98-107) mmol/L Carbon Dioxide 34 H 33 H (22-30) mmol/L BUN 18 H 14 (7-17) mg/dL Creatinine 0.64 0.63 (0.52-1.04) mg/dL Glucose 85 105 H (74-99) mg/dL Calcium 9.5 9.4 (8.4-10.2) mg/dL AST 26 (14-36) U/L ALT 36 (9-52) U/L Alkaline Phosphatase 74 (38-126) U/L Total Protein 7.4 (6.3-8.2) g/dL Albumin 4.5 (3.5-5.0) g/dL Current Medications Generic Name Dose Route Start Last Admin Trade Name Freq PRN Reason Stop Dose Admin Aspirin 81 mg 11/01/17 09:00 11/01/17 08:36 Aspirin PO 81 mg DAILY CHANTALE Administration Gabapentin 600 mg 10/31/17 19:00 11/01/17 08:35 Neurontin PO 600 mg TID CHANTALE Administration Hydrochlorothiazide 12.5 mg 11/01/17 09:00 Hydrodiuril PO DAILY CHANTALE Sodium Chloride 1,000 mls @ 20 mls/hr 10/31/17 15:22 10/31/17 15:55 Saline 0.9% IV 11/01/17 15:21 20 mls/hr .Q24H ONE Administration Levothyroxine Sodium 125 mcg 11/01/17 06:30 11/01/17 05:01 Synthroid PO Not Given 0630 CHANTALE Losartan Potassium 100 mg 11/01/17 09:00 Cozaar PO DAILY CHANTALE Miscellaneous Information 1 each 10/31/17 19:25 Potassium Per Protocol MISCELLANE DAILY PRN Per Protocol Protocol Nitroglycerin 0.4 mg 10/31/17 15:22 Nitrostat SUBLINGUAL Q5M PRN Chest Pain Pantoprazole Sodium 40 mg 10/31/17 21:00 11/01/17 08:36 Protonix PO 40 mg BID CHANTALE Administration Pravastatin Sodium 20 mg 10/31/17 21:00 10/31/17 19:54 Pravachol PO 20 mg HS CHANTALE Administration Intake and Output 10/31/17 11/01/17 11/01/17 22:59 06:59 14:59 Intake Total 240 30 Output Total 200 Balance 240 -170 Intake: Oral 240 30 Output: Urine 200 Other: Voiding Method Toilet Toilet Toilet # Voids 1 1 Weight 72.6 kg 11/01/17 01:12 11/01/17 01:12 EKG Interpretations (text) EKG shows normal sinus rhythm with no acute changes. Assessment and Plan Plan: Assessment and plan #1 left-sided chest pressure, atypical for acute coronary syndrome. troponins negative 3, EKG shows normal sinus rhythm with no acute changes. #2 hypertension #3 hyperlipidemia #4 prior TIA #5 history of thyroid cancer status post partial thyroidectomy #6 cervical spine surgery #7 throat fullness and irritation, positive blood clot with cough, CT of the chest negative for pulmonary embolism. Soft tissue and neck CT no abnormality noted. Plan We will obtain an echocardiogram with Doppler study. Patient has been advised to undergo stress testing for more definitive diagnosis, pain overall is atypical in nature. Further recommendations based on these findings and patient 's clinical course. DNP note has been reviewed, I agree with a documented findings and plan of care. Patient was seen and examined.
--- NOTE | 2017-11-01 11:12 | HP ---
HISTORY AND PHYSICAL DATE OF ADMISSION: 10/31/2017 DATE OF SERVICE: 10/31/2017 PRESENTING COMPLAINT: Coughed up blood. HISTORY OF PRESENTING COMPLAINT: This is a very pleasant 57-year-old patient of Dr. Rangel who I saw late yesterday afternoon on 10/31/2017. Chronic stable medical conditions include GERD, hypertension, osteoarthritis of the back and neck. Patient has had a partial thyroidectomy for a malignancy about 8 years ago and is currently hypothyroid. Patient has also had [address] Leal [facility] in [place] and also has got left leg neuropathy for which she takes Neurontin and has neuropathy. For 5 or 6 days, patient has been noticing a sore throat and noticed that if she would lean forward, she could not breathe and then she brought up a large blob of blood clot, and decided to come to the hospital. She had some slight discomfort in the left side of the chest, not for too long. It felt a dull ache, no radiation, no shortness of breath. No dizziness. No lightheadedness. Was admitted for the same. CT scan in the ER was unremarkable. Patient denies any loss of appetite or weight loss. REVIEW OF SYSTEMS: CONSTITUTIONAL: Tired. HEENT: As above. RESPIRATORY: None. CARDIOVASCULAR: As above. GASTROINTESTINAL: Heartburn. GENITOURINARY: None. MUSCULOSKELETAL: Chronic neck and low back pain. DERMATOLOGICAL: None. HEMATOLOGICAL: None. LYMPHATIC: None. PSYCHIATRY: None. NEUROLOGICAL: Numbness, tingling and some pain, chronic in the left lower extremity. PAST MEDICAL HISTORY: COPD, TIA, GERD, hypertension, thyroid cancer with partial thyroidectomy. PAST SURGICAL HISTORY: Lower back surgery x2 by Dr. Leal, cholecystectomy, tubal ligation, partial thyroidectomy, spinal fusion lower back, right shoulder surgery, right foot surgery, bladder sling. SOCIAL HISTORY: Does not smoke or drink alcohol. . 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 FAMILY HISTORY: DVT. HOME MEDICATIONS: 1. Hyzaar 100/12.5 one tablet p.o. daily. 2. Synthroid 125 mcg p.o. daily. 3. Gabapentin 600 mg p.o. t.i.d. 4. Pravachol 20 mg q.h.s. 5. Protonix 40 mg b.i.d. 6. Aspirin 81 mg p.o. daily. ALLERGIES: To DARVOCET-N 100, ADHESIVE TAPE. PHYSICAL EXAMINATION: Vital signs on presentation, temperature 97.9, pulse 70, respiration 18, blood pressure 139/80, pulse ox 100% on room air. GENERAL APPEARANCE: Average build, sitting up, not in distress. EYES: Pupils equal, conjunctivae normal. HEENT: External appearance of nose and ears normal, oral cavity normal. NECK: JVD not raised. Mass not palpable. RESPIRATORY: Effort normal. LUNGS: Fair entry. CARDIOVASCULAR: First and second sounds no edema. ABDOMEN: Soft, nontender. Liver and spleen not palpable. LYMPHATIC: No lymph node palpable in neck or axillae. PSYCHIATRY: Alert and oriented x3. Mood and affect is normal. NEUROLOGICAL: Pupils equal. Cranial nerves grossly intact. Power and sensation grossly intact. INVESTIGATIONS: White count 5.2, hemoglobin 14.6, potassium 3.2, BUN 8, creatinine 0.64. EKG normal sinus rhythm. Soft tissue neck CT, mild fullness of the left thyroid lobe with right thyroidectomy changes. Chest CTA, no PE. ASSESSMENT: 1. This is a patient who had a sore throat for 5-6 days and had this funny sensation of not able to breathe when she would lean forward and patient did cough up a large blood clot yesterday, it makes me think that it could be some bleeding in the throat area, but does not fit in the picture entirely. Of course bleeding from the lung is entirely possible and will need to be further worked up and this case will probably need a Pulmonary and ENT evaluation with indirect laryngoscopy given that patient has been having sore throat too. 2. Left precordial chest pain, does not really sound cardiac, troponins are negative. 3. Gastroesophageal reflux disease. 4. Essential hypertension. 5. Osteoarthritis of neck and lower spine. 6. Hypothyroid with a history of partial thyroidectomy for thyroid cancer. PLAN: Care was discussed with the patient in length. Cardiology, Pulmonary consultation is being done. Home medications are to be resumed. Care was discussed with the patient. Keep a lookout for patient's hemoglobin. Will follow. MMODL / IJN: [id number] /
--- NOTE | 2017-11-01 11:27 | P.CNPUL ---
History of Present Illness Consult date: 11/01/17 Requesting physician: Zay Kinsey Reason for consult: other (Hemoptysis) Chief complaint: Hemoptysis, shortness of breath, chest pain History of present illness: This is a very pleasant 57-year-old female patient who follows with Dr. Rangel as her primary care physician. She has a history of hypertension, hyperlipidemia, TIA, thyroid cancer status post right-sided hemithyroidectomy, gastroesophageal reflux disease, osteoarthritis. She is a lifelong nonsmoker. She presented here to the emergency room yesterday with complaints of chest pain radiating to her neck. She also felt as though there was a lump in her throat. She states she coughed up some blood as well. CT angiogram revealed no evidence of pulmonary embolism. CT of the neck revealed no distinct abnormality. Her chest pain is atypical for acute coronary syndrome. Her troponins were negative 3. No acute ST or T-wave abnormalities. Cardiology has seen and evaluated the patient. Most likely undergo stress testing. Echocardiogram pending. The patient is seen today in consultation on the selective care unit. She is currently awake and alert in no acute distress. She has not had any further hemoptysis. She states it was approximately the size of a silver dollar. She is a lifelong nonsmoker. She was exposed to secondhand smoke. She is maintaining good O2 saturations in the high 90s on room air. She's been afebrile. Hemodynamically stable. White count 5.5. Hemoglobin 13.8. Creatinine 0.63. Review of Systems Constitutional: Denies chills, Denies fever Eyes: denies blurred vision, denies decreased vision Ears: deny: decreased hearing Ears, nose, mouth and throat: Reports swelling in throat Cardiovascular: Reports chest pain Respiratory: Denies cough Gastrointestinal: Denies abdominal pain, Denies diarrhea, Denies nausea, Denies vomiting Genitourinary: Denies dysuria, Denies hematuria Musculoskeletal: Denies myalgias Integumentary: Denies pruritus, Denies rash Neurological: Denies numbness, Denies weakness Psychiatric: Denies anxiety, Denies depression Endocrine: Denies fatigue, Denies weight change Hematologic/Lymphatic: Reports as per HPI Allergic/Immunologic: Reports as per HPI Past Medical History Past Medical History: Cancer, COPD, CVA/TIA, GERD/Reflux, Hypertension, Osteoarthritis (OA), Thyroid Disorder Additional Past Medical History / Comment(s): hx ulcer at 20YO, thyroid cancer History of Any Multi-Drug Resistant Organisms: None Reported Past Surgical History: Back Surgery, Cholecystectomy, Orthopedic Surgery, Tubal Ligation Additional Past Surgical History / Comment(s): thyroidectomy, spinal fusion, rt shoulder surgery,rt foot suregery, bladder sling Past Anesthesia/Blood Transfusion Reactions: Motion Sickness, Postoperative Nausea & Vomiting (PONV) Past Psychological History: No Psychological Hx Reported Smoking Status: Never smoker Past Alcohol Use History: None Reported Past Drug Use History: None Reported - Past Family History Sister(s) Family Medical History: Deep Vein Thrombosis (DVT) Medications and Allergies Home Medications Medication Instructions Recorded Confirmed Type Aspirin 81 mg PO DAILY 11/14/13 10/31/17 History Gabapentin 600 mg PO TID 10/31/17 10/31/17 History Levothyroxine Sodium [Synthroid] 125 mcg PO DAILY 10/31/17 10/31/17 History Losartan/Hydrochlorothiazide 1 tab PO DAILY 10/31/17 10/31/17 History [Hyzaar 100-12.5 Tablet] Pantoprazole Sodium [Protonix] 40 mg PO BID 10/31/17 10/31/17 History Pravastatin Sodium [Pravachol] 20 mg PO HS 10/31/17 10/31/17 History Allergies Allergy/AdvReac Type Severity Reaction Status Date / Time propoxyphene napsylate Allergy Swelling Verified 10/31/17 11:48 [From Darvocet-[email or web address]] adhesive tape AdvReac Itching Verified 10/31/17 11:48 Physical Exam Vitals: Vital Signs Temp Pulse Pulse Resp BP BP Pulse Ox 11/01/17 08:40 88 20 11/01/17 08:31 92 16 115/69 98 11/01/17 04:00 16 11/01/17 03:37 98.4 F 86 16 115/67 96 10/31/17 23:51 97.9 F 84 16 117/58 99 10/31/17 19:59 96.3 F L 70 16 124/82 96 10/31/17 18:26 96.6 F L 73 18 132/85 98 10/31/17 18:23 73 18 10/31/17 18:06 96.6 F L 73 18 132/85 98 10/31/17 17:56 97.0 F L 71 18 127/77 97 10/31/17 17:53 71 18 127/77 97 10/31/17 15:56 73 18 145/83 99 10/31/17 13:42 97.0 F L 69 18 145/82 100 10/31/17 12:36 18 10/31/17 11:14 97.9 F 70 18 139/80 100 Intake and Output 10/31/17 11/01/17 11/01/17 22:59 06:59 14:59 Intake Total 240 30 Output Total 200 Balance 240 -170 Intake: Oral 240 30 Output: Urine 200 Other: Voiding Method Toilet Toilet Toilet # Voids 1 1 Weight 72.6 kg - Constitutional General appearance: average body habitus - EENT Eyes: EOMI, PERRLA ENT: hearing grossly normal Ears: bilateral: normal - Neck Neck: normal ROM Carotids: bilateral: upstroke normal Thyroid: negative: normal size (History of right hemithyroidectomy) - Respiratory Respiratory: bilateral: CTA - Cardiovascular Rhythm: regular Heart sounds: normal: S1, S2 - Gastrointestinal General gastrointestinal: no organomegaly, soft, no tenderness - Neurologic Neurologic: CNII-XII intact - Musculoskeletal Musculoskeletal: gait normal - Psychiatric Psychiatric: A&O x's 3, appropriate affect, intact judgment & insight Results - Laboratory Findings CBC and BMP: 11/01/17 01:12 11/01/17 01:12 PT/INR, D-dimer PT 9.8 sec (9.0-12.0) 10/31/17 12:58 INR 1.0 (<1.2) 10/31/17 12:58 Abnormal lab findings: Abnormal Labs 10/31/17 10/31/17 10/31/17 12:58 12:58 19:00 Potassium 3.2 L Chloride 95 L Carbon Dioxide 34 H BUN 18 H Glucose Total Creatine Kinase 209 H 157 H CK-MB (CK-2) 2.5 H* TSH 11/01/17 11/01/17 11/01/17 01:12 01:12 01:12 Potassium 3.4 L Chloride Carbon Dioxide 33 H BUN Glucose 105 H Total Creatine Kinase 147 H CK-MB (CK-2) TSH 0.100 L - Diagnostic Findings Chest x-ray: image reviewed Assessment and Plan Assessment: Impression: #1 Atypical chest pain. #2 Hemoptysis of unclear etiology. CT of the neck reveals no abnormalities. #3 Hypothyroidism secondary to thyroid cancer status post right-sided marty- thyroidectomy. #4 Hyper tension. #5 Hyperlipidemia. #6 Gastroesophageal reflux disease. Plan: The patient was seen and evaluated by Dr. Marroquin. Chest x-ray, CAT scan, computed tomography scan of the neck were all reviewed. No noted abnormalities that would explain her hemoptysis. Should she have any recurrent hemoptysis may consider bronchoscopy or possibly ENT consult. She has been seen and evaluated by cardiology. The plan is first stress testing to rule out any underlying coronary artery disease. Echocardiogram is pending. We will continue to follow and make further recommendations based on her clinical status. I, the cosigning physician, performed a history & physical examination of the patient. Lungs sounds are clear. Maintaining good O2 saturations in the 90s on room air. I discussed the assessment and plan of care with my nurse practitioner, Felicitas Samaniego. I attest to the above note as dictated by her. Time with Patient: Greater than 30
--- NOTE | 2017-11-01 13:05 | ECHOF ---
Referral Reason:chest pain MEASUREMENTS -------- HEIGHT: 162.6 cm WEIGHT: 72.6 kg BP: IVSd: 0.7 cm (0.6 - 1.1) LVIDd: 3.6 cm (3.9 - 5.3) LVPWd: 0.9 cm (0.6 - 1.1) IVSs: 1.2 cm LVIDs: 2.0 cm LVPWs: 1.8 cm LAESV Index (A-L): 13.17 ml/m Ao Diam: 2.9 cm (2.0 - 3.7) AV Cusp: 2.1 cm (1.5 - 2.6) LA Diam: 3.3 cm (2.7 - 3.8) MV EXCURSION: 11.714 mm (> 18.000) MV EF SLOPE: 36 mm/s (70 - 150) EPSS: 0.4 cm MV E Tio: 0.72 m/s MV DecT: 141 ms MV A Tio: 0.56 m/s MV E/A Ratio: 1.29 RAP: 5.00 mmHg RVSP: 11.51 mmHg FINDINGS -------- Sinus rhythm. This was a technically good study. The left ventricular size is normal. Left ventricular wall thickness is normal. Overall left vent ricular systolic function is normal with, an EF between 55 - 60 %. The right ventricle is normal in size and function. The left atrium is normal in size. The right atrium is normal in size. The aortic valve is trileaflet, and appears structurally normal. No aortic stenosis or regurgitation. The mitral valve is normal. There is trace mitral regurgitation. Trace tricuspid regurgitation present. Right ventricular systolic pressure is normal at < 35 mmHg. The right ventricular systolic pressure, as measured by Doppler, is 11.51mmHg. There is no pulmonic regurgitation present. The aortic root size is normal. Normal inferior vena cava with normal inspiratory collapse consistent with estimated right atrial pre ssure of 5 mmHg. There is no pericardial effusion. CONCLUSIONS -------- 1. Sinus rhythm. 2. This was a technically good study. 3. The left ventricular size is normal. 4. Left ventricular wall thickness is normal. 5. Overall left ventricular systolic function is normal with, an EF between 55 - 60 %. 6. The left atrium is normal in size. 7. The aortic valve is trileaflet, and appears structurally normal. No aortic stenosis or regurgitati on. 8. There is trace mitral regurgitation. 9. Trace tricuspid regurgitation present. 10. Right ventricular systolic pressure is normal at < 35 mmHg. 11. There is no pulmonic regurgitation present. 12. The aortic root size is normal. 13. Normal inferior vena cava with normal inspiratory collapse consistent with estimated right atrial pressure of 5 mmHg. 14. There is no pericardial effusion. BANKRUPT[employer] SPECIALIST: Niecy Arroyo RDCS
[2017-11-01] MEDS: HYDROCHLOROTHIAZIDE 12.5 MG CAP PO SCH (13:30)
[2017-11-01] MEDS: LOSARTAN 50 MG TAB PO SCH (13:30)
[2017-11-01] MEDS: POTASSIUM CHLORIDE ER 20 MEQ TAB.ER PO SCH ×2 (13:34→15:11)
[2017-11-01 20:22] VITALS: RESP 16
[2017-11-01] MEDS: PRAVASTATIN SODIUM 20 MG TAB PO SCH (20:48)
--- NOTE | 2017-11-01 22:06 | P.OP ---
Date of Procedure: 11/01/17 Preoperative Diagnosis: Globus pharyngeus and hemoptysis Postoperative Diagnosis: Same and uvular edema Procedure(s) Performed: Flexible nasopharyngeal laryngoscopy Anesthesia: none Surgeon: Mariusz Gordillo Estimated Blood Loss (ml): 0 Pathology: none sent Condition: stable Disposition: PACU Indications for Procedure: This patient had issues over the last 6-8 days with hemoptysis, one episode, and Operative Findings: Enlarged uvula with thickening to the base of the tongue Description of Procedure: An EF type GP nasopharyngoscope was inserted into the patient's right nares. We followed the floor the nose into the nasopharynx and there is no signs of any nasopharyngeal abnormality. The oropharynx had no abnormalities other than the fact that the uvula was long and friable at the tip. Screening tumors or masses noted. The base of tongue has some thickening epiglottis vocal cords all unremarkable. Again, no obvious tumor or masses noted that the uvula was edematous and raw on the tip. No obvious tumors noted.
--- NOTE | 2017-11-01 22:11 | P.GSCN ---
History of Present Illness Consult date: 11/01/17 Reason for Consult: Globus pharyngeus and hemoptysis Requesting physician: Mariusz Gordillo History of present illness: This patient is a 57-year-old white female who approximately 8 days ago began having progressive sore throat. 2 days ago she felt that when she leaned forward her throat closed off and on Tuesday she had one episode of spitting up of blood clot. She had a history of thyroid cancer but was removed many years ago and had a right hemithyroidectomy. She does not remember the details of this cancer. She has some chest pains that have resolved. Thus x-ray was performed through her physician insurance administrative assistant which was normal. She came to the emergency room for further evaluation and was admitted. I did review the results of the patient's computed tomography scan and neck CAT scan and no obvious tumors or masses were noted. Review of Systems - Constitutional Denies anorexia - EENT Ears, nose, mouth and throat: Denies ant. neck pain, Denies neck fullness/ pressure - Cardiovascular Denies dyspnea on exertion - Respiratory Reports hemoptysis, Denies home oxygen, Denies sleep apnea - Gastrointestinal Denies heartburn - Genitourinary Genitourinary: Denies difficulty voiding Menstruation: Reports as per HPI - Musculoskeletal Denies fractures - Integumentary Denies brittle nails - Neurological Denies balance difficulties - Psychiatric Denies change in appetite - Endocrine Denies excessive thirst - Hematologic/Lymphatic Denies easy bleeding, Denies easy bruising, Denies lymphadenopathy, Denies lymphedema - Allergic/Immunologic Denies allergic rhinitis Past Medical History Past Medical History: Cancer, COPD, CVA/TIA, GERD/Reflux, Hypertension, Osteoarthritis (OA), Thyroid Disorder Additional Past Medical History / Comment(s): hx ulcer at 20YO, thyroid cancer History of Any Multi-Drug Resistant Organisms: None Reported Past Surgical History: Back Surgery, Cholecystectomy, Orthopedic Surgery, Tubal Ligation Additional Past Surgical History / Comment(s): thyroidectomy, spinal fusion, rt shoulder surgery,rt foot suregery, bladder sling Past Anesthesia/Blood Transfusion Reactions: Motion Sickness, Postoperative Nausea & Vomiting (PONV) Past Psychological History: No Psychological Hx Reported Smoking Status: Never smoker Past Alcohol Use History: None Reported Past Drug Use History: None Reported - Past Family History Sister(s) Family Medical History: Deep Vein Thrombosis (DVT) Medications and Allergies Home Medications Medication Instructions Recorded Confirmed Type Aspirin 81 mg PO DAILY 11/14/13 10/31/17 History Gabapentin 600 mg PO TID 10/31/17 10/31/17 History Levothyroxine Sodium [Synthroid] 125 mcg PO DAILY 10/31/17 10/31/17 History Losartan/Hydrochlorothiazide 1 tab PO DAILY 10/31/17 10/31/17 History [Hyzaar 100-12.5 Tablet] Pantoprazole Sodium [Protonix] 40 mg PO BID 10/31/17 10/31/17 History Pravastatin Sodium [Pravachol] 20 mg PO HS 10/31/17 10/31/17 History Allergies Allergy/AdvReac Type Severity Reaction Status Date / Time propoxyphene napsylate Allergy Swelling Verified 10/31/17 11:48 [From [email or web address]] adhesive tape AdvReac Itching Verified 10/31/17 11:48 Surgical - Exam Osteopathic Statement: *. No significant issues noted on an osteopathic structural exam other than those noted in the History and Physical/Consult. Vital Signs Temp Pulse Resp BP Pulse Ox 97.9 F 70 18 139/80 100 10/31/17 11:14 10/31/17 11:14 10/31/17 11:14 10/31/17 11:14 10/31/17 11:14 - General well developed, well nourished, no distress, moderate distress, severe distress - Eyes PERRL, normal ocular movement - ENT normal pinna, normal nares, normal mucosa, no hearing loss, no congestion - Neck Previous right thyroidectomy noted i.e. scarring is apparent. no masses - Respiratory normal expansion, normal respiratory effort, clear to percussion - Integumentary no rash, no growths - Neurologic normal coordination, normal sensation - Musculoskeletal normal gait - Psychiatric oriented to time, oriented to person, oriented to place, speech is normal, memory intact Results - Labs 11/01/17 01:12 11/01/17 19:07 Abnormal Lab Results - Last 24 Hours (Table) 11/01/17 11/01/17 11/01/17 Range/Units 01:12 01:12 01:12 Potassium 3.4 L (3.5-5.1) mmol/L Carbon Dioxide 33 H (22-30) mmol/L Glucose 105 H (74-99) mg/dL Total Creatine Kinase 147 H (30-135) U/L TSH 0.100 L (0.465-4.680) mIU/L Diabetes panel 11/01/17 11/01/17 Range/Units 01:12 19:07 Sodium 142 (137-145) mmol/L Potassium 3.4 L 3.8 (3.5-5.1) mmol/L Chloride 99 (98-107) mmol/L Carbon Dioxide 33 H (22-30) mmol/L BUN 14 (7-17) mg/dL Creatinine 0.63 (0.52-1.04) mg/dL Glucose 105 H (74-99) mg/dL Calcium 9.4 (8.4-10.2) mg/dL Triglycerides 105 (<150) mg/dL HDL Cholesterol 42 (40-60) mg/dL Thyroid panel 11/01/17 Range/Units 01:12 TSH 0.100 L (0.465-4.680) mIU/L Calcium panel 11/01/17 Range/Units 01:12 Calcium 9.4 (8.4-10.2) mg/dL Pituitary panel 11/01/17 11/01/17 11/01/17 Range/Units 01:12 01:12 19:07 Sodium 142 (137-145) mmol/L Potassium 3.4 L 3.8 (3.5-5.1) mmol/L Chloride 99 (98-107) mmol/L Carbon Dioxide 33 H (22-30) mmol/L BUN 14 (7-17) mg/dL Creatinine 0.63 (0.52-1.04) mg/dL Glucose 105 H (74-99) mg/dL Calcium 9.4 (8.4-10.2) mg/dL TSH 0.100 L (0.465-4.680) mIU/L Adrenal panel 11/01/17 11/01/17 Range/Units 01:12 19:07 Sodium 142 (137-145) mmol/L Potassium 3.4 L 3.8 (3.5-5.1) mmol/L Chloride 99 (98-107) mmol/L Carbon Dioxide 33 H (22-30) mmol/L BUN 14 (7-17) mg/dL Creatinine 0.63 (0.52-1.04) mg/dL Glucose 105 H (74-99) mg/dL Calcium 9.4 (8.4-10.2) mg/dL Assessment and Plan (1) Hemoptysis Current Visit: Yes Status: Acute Code(s): R04.2 - HEMOPTYSIS SNOMED Code(s ): 53807208 (2) Globus pharyngeus Current Visit: Yes Status: Acute Code(s): F45.8 - OTHER SOMATOFORM DISORDERS SNOMED Code(s): 45550591 (3) Uvular swelling Current Visit: Yes Status: Acute Code(s): K13.79 - OTHER LESIONS OF ORAL MUCOSA SNOMED Code(s): 006604744 (4) Snoring Current Visit: Yes Status: Acute Code(s): R06.83 - SNORING SNOMED Code(s) : 88855293 (5) Obstructive sleep apnea (adult) (pediatric) Current Visit: Yes Status: Acute Code(s): G47.33 - OBSTRUCTIVE SLEEP APNEA ( ADULT) (PEDIATRIC) SNOMED Code(s): 88479545 Plan: This patient's examination was essentially unremarkable other than her long and widened uvula that is raw. This may be from snoring or possibly from a localized infection. Nevertheless, antibiotics and steroids have been prescribed and a recheck is scheduled, planned she is to follow up with me on an outpatient basis after discharge. She is awaiting the results of the bronchoscopy. Patient's been advised to follow with me after discharge in the office for a reevaluation. Time with Patient: Greater than 30
[2017-11-01] MEDS ORDERED: predniSONE 20 MG TAB PO STA (22:15)
--- NOTE | 2017-11-01 22:15 | PN ---
PROGRESS NOTE DATE OF SERVICE: 11/01/2017 PRESENTING COMPLAINT: Hemoptysis. INTERVAL HISTORY: This patient presented with atypical chest pain. She was seen by Cardiology; not for any further intervention at the present time. Awaiting ENT input. Patient has had no further episodes. REVIEW OF SYSTEMS: Done for constitutional, cardiovascular, GI, pulmonary; relevant findings as above. CURRENT MEDICATIONS: Reviewed. PHYSICAL EXAMINATION: Temperature 98.1, pulse 86, respiration 20, blood pressure 161/72, pulse ox 97% on room air. GENERAL APPEARANCE: Sitting up, comfortable. EYES: Pupils equal. Conjunctivae normal. HEENT: External appearance of nose and ears normal. Oral cavity normal. NECK: JVD not raised. Mass not palpable. RESPIRATORY: Effort normal. Lungs are clear. CARDIOVASCULAR: First and second sounds normal. No edema. ABDOMEN: Soft, non-tender. Liver and spleen not palpable. PSYCHIATRY: Alert and oriented x3. Mood and affect normal. INVESTIGATIONS: Potassium 3.4, hemoglobin 13.8. TSH 0.1. ASSESSMENT: 1. Episode of hemoptysis that could be a pulmonary source; even an upper respiratory tract source is possible. 2. Left precordial chest pain, felt to be non-cardiac. 3. Gastroesophageal reflux disease. 4. Essential hypertension. 5. Osteoarthritis, primary, of the neck and lower spine. 6. Hypothyroid with some over-replacement with history of partial thyroidectomy. PLAN: Awaiting input from ENT. Seen by Pulmonary. Patient's dose of Synthroid has been scaled back. Care was discussed with the patient. MMODL / IJN: [id number] /
[2017-11-02 05:19] VITALS: BP 115/57; PULSE 91; TEMP 97.9
[2017-11-02] MEDS ORDERED: LEVOTHYROXINE 100 MCG TAB PO SCH (06:30)
[2017-11-02 07:50] LABS: HCT 41.3 % (34.0-46.0); HGB 14.1 gm/dL (11.4-16.0); MCH 29.5 pg (25.0-35.0); MCHC 34.1 g/dL (31.0-37.0); MCV 86.6 fL (80.0-100.0); Mean Platelet Volume 8.1; Platelet Count 240 k/uL (150-450); RBC 4.76 m/uL (3.80-5.40); RDW 13.4 % (11.5-15.5); WBC 6.4 k/uL (3.8-10.6)
[2017-11-02 08:01] LABS: ALT 32 U/L (9-52); AST 19 U/L (14-36); Albumin 4.4 g/dL (3.5-5.0); Alkaline Phosphatase 68 U/L (38-126); Anion Gap 13 mmol/L; Blood Urea Nitrogen 18 mg/dL (7-17); Calcium 9.7 mg/dL (8.4-10.2); Carbon Dioxide 29 mmol/L (22-30); Chloride 101 mmol/L (98-107); Glucose 139 mg/dL (74-99); Magnesium 1.9 mg/dL (1.6-2.3); Potassium 4.6 mmol/L (3.5-5.1); Sodium 143 mmol/L (137-145); Total Bilirubin 0.3 mg/dL (0.2-1.3)
[2017-11-02] MEDS: GABAPENTIN 300 MG CAP PO SCH (08:33)
[2017-11-02] MEDS: ASPIRIN 81 MG PO SCH (08:33)
[2017-11-02] MEDS: LOSARTAN 50 MG TAB PO SCH (08:34)
[2017-11-02] MEDS: HYDROCHLOROTHIAZIDE 12.5 MG CAP PO SCH (08:34)
[2017-11-02] MEDS: PANTOPRAZOLE 40 MG TABLET PO SCH (08:34)
[2017-11-02] MEDS ORDERED: AMOXIC-POT CLAV 875-125MG 1 EACH TAB PO SCH (09:00)
[2017-11-02 10:20] LABS: T4, Free (Free Thyroxine) 1.65 ng/dL (0.78-2.19)
[2017-11-02] MEDS ORDERED: LACTATED RINGERS 1,000 ML IV ONE (12:52)
[2017-11-02] MEDS ORDERED: MIDAZOLAM 2 MG/2 ML VIAL ONE (12:58)
[2017-11-02] MEDS ORDERED: KETAMINE 10 MG/ML 20 ML VIAL ONE (12:58)
[2017-11-02] MEDS ORDERED: PROPOFOL 10 MG/ML 20 ML VIAL IV ONE (12:58)
[2017-11-02] MEDS ORDERED: ONDANSETRON 4 MG/2 ML VIAL ONE (12:58)
[2017-11-02] MEDS ORDERED: GLYCOPYRROLATE 0.2 MG/ML 2 ML VIAL ONE (12:58)
[2017-11-02] MEDS ORDERED: LIDOCAINE 1% INJ 10MG/ML (20 ML MDV) ONE (12:58)
[2017-11-02] MEDS ORDERED: fentaNYL (PF) 50 MCG/ML 2 ML AMP ONE (12:58)
--- NOTE | 2017-11-02 14:30 | P.PN ---
Subjective Progress Note Date: 11/02/17 Principal diagnosis: Hemoptysis, shortness of breath, chest pain This is a very pleasant 57-year-old female patient who follows with Dr. Rangle as her primary care physician. She has a history of hypertension, hyperlipidemia, TIA, thyroid cancer status post right-sided hemithyroidectomy, gastroesophageal reflux disease, osteoarthritis. She is a lifelong nonsmoker. She presented here to the emergency room yesterday with complaints of chest pain radiating to her neck. She also felt as though there was a lump in her throat. She states she coughed up some blood as well. CT angiogram revealed no evidence of pulmonary embolism. CT of the neck revealed no distinct abnormality. Her chest pain is atypical for acute coronary syndrome. Her troponins were negative 3. No acute ST or T-wave abnormalities. Cardiology has seen and evaluated the patient. Most likely undergo stress testing. Echocardiogram pending. The patient is seen today in consultation on the selective care unit. She is currently awake and alert in no acute distress. She has not had any further hemoptysis. She states it was approximately the size of a silver dollar. She is a lifelong nonsmoker. She was exposed to secondhand smoke. She is maintaining good O2 saturations in the high 90s on room air. She's been afebrile. Hemodynamically stable. White count 5.5. Hemoglobin 13.8. Creatinine 0.63. On 11/02/2017 patient seen again in follow-up on medical surgical floor. Denies any dyspnea, denies any chest pain, vital signs are stable, patient has not had any recurrence of the hemoptysis. Today's hemoglobin is 14.1, the rest of the lab work is unremarkable. TSH was low at 0.0-2, but free T4 was 1.65. Patient was evaluated by ENT specialist who performed a flexible nasopharyngeal laryngoscopic he and there were no signs of any nasopharyngeal abnormality, no obvious tumor or masses noted, each ear whole was edematous and raw on the tip. Today the patient underwent bronchoscopy for inspection of the airways related to an episode of hemoptysis. In the airways were clear. Patient tolerated the procedure well, and returned in stable condition to her room. Room air pulse ox is 96%, vital signs are stable, respirations are even and nonlabored, and pulmonary standpoint patient is cleared for discharge home today Objective - Vital Signs Vital signs: Vital Signs Temp 97.9 F 11/02/17 05:18 Pulse 91 11/02/17 08:35 Resp 16 11/02/17 08:35 BP 115/57 11/02/17 05:18 Pulse Ox 96 11/02/17 05:18 Intake & Output 11/01/17 11/02/17 11/02/17 18:59 06:59 18:59 Intake Total 1110 100 Output Total 600 Balance 510 100 Weight 72.6 kg Intake: IV 100 Oral 1110 Output: Urine 600 Other: Voiding Method Toilet Toilet Toilet # Voids 2 1 # Bowel Movements 0 - Exam - Constitutional General appearance: average body habitus - EENT Eyes: EOMI, PERRLA ENT: hearing grossly normal Ears: bilateral: normal - Neck Neck: normal ROM Carotids: bilateral: upstroke normal Thyroid: negative: normal size (History of right hemithyroidectomy) - Respiratory Respiratory: bilateral: CTA - Cardiovascular Rhythm: regular Heart sounds: normal: S1, S2 - Gastrointestinal General gastrointestinal: no organomegaly, soft, no tenderness - Neurologic Neurologic: CNII-XII intact - Musculoskeletal Musculoskeletal: gait normal - Psychiatric Psychiatric: A&O x's 3, appropriate affect, intact judgment & insight - Labs CBC & Chem 7: 11/02/17 07:07 11/02/17 07:07 Labs: Abnormal Lab Results - Last 24 Hours (Table) 11/02/17 11/02/17 Range/Units 07:07 07:07 BUN 18 H (7-17) mg/dL Glucose 139 H (74-99) mg/dL TSH 0.022 L (0.465-4.680) mIU/L Assessment and Plan Plan: Assessment: #1 Atypical chest pain. #2 Hemoptysis of unclear etiology. CT of the neck reveals no abnormalities. Patient underwent bronchoscopy with inspection of the airway, which revealed clear airways. Patient has been evaluated by the ENT service, and the bedside flexible nasopharyngeal laryngoscopic he did not reveal any obvious tumors or masses, there was some thickening at the base of the tongue, but no obvious source of bleeding noted #3 Hypothyroidism secondary to thyroid cancer status post right-sided marty- thyroidectomy. #4 Hyper tension. #5 Hyperlipidemia. #6 Gastroesophageal reflux disease. Plan: Patient denies any dyspnea or chest pain, vital signs are stable, she underwent bronchoscopy with inspection of the airways, and it revealed clear airways. Patient tolerated the procedure well, returned in stable condition to her room, from pulmonary standpoint she stable for discharge home today. No follow-up needed in the pulmonary office I performed a history & physical examination of the patient and discussed their management with my nurse practitioner, Diamante Riley. I reviewed the nurse practitioner's note and agree with the documented findings and plan of care. Lung sounds are clear. The findings and the impression was discussed with the patient. I attest to the documentation by the nurse practitioner. Time with Patient: Less than 30
--- NOTE | 2017-11-02 14:31 | PCN ---
PROCEDURE NOTE OPERATIVE REPORT: Bronchoscopy and airway examination. PREOPERATIVE DIAGNOSIS: Hemoptysis. POSTOPERATIVE DIAGNOSIS: No evidence of hemoptysis upon examination with bronchoscopy. PROCEDURE: Patient was prepared according to the bronchoscopy protocol. O2 was applied via nasal cannula. Patient was given IV conscious sedation. We monitored the O2 saturation continuously, heart rate was continuously monitored and blood pressure was intermittently monitored. After adequate IV conscious sedation, the bronchoscope was advanced through a bite block down to the area of the back of her throat, and no evidence of any bleeding was noted. Airway around the vocal cords and the vocal cords were examined, no evidence of any bleeding. Then, lidocaine was applied over the vocal cords, and the bronchoscope was advanced further down to the trachea. A thorough examination was done of the trachea, cyndee, right upper lobe, right middle lobe, right lower lobe, left upper lobe, lingula and left lower lobe. There was no evidence of any endobronchial lesions, no evidence of bleeding was noted. The procedure was well tolerated, and there was no evidence of any immediate complications. Examination of the nasal mucosa was done, there was no evidence of bleeding in the nose or in the nasopharynx area. No specimen was obtained, and again the bronchoscopy evaluation was basically negative and no evidence of any an explanation to explain her symptoms of hemoptysis. MMODL / IJN: [id number] /
--- NOTE | 2017-11-04 20:30 | DS ---
DISCHARGE SUMMARY DATE OF ADMISSION: 10/31/2017 DATE OF DISCHARGE: 11/02/2017 FINAL DIAGNOSES: 1. Episode of hemoptysis; could be from inflamed uvula. 2. Left precordial chest pain, felt to be non-cardiac. 3. Gastroesophageal reflux disease. 4. Essential hypertension. 5. Primary osteoarthritis of the neck and lower spine. 6. Hypothyroid with over-replacement. 7. History of partial thyroidectomy. HOSPITAL COURSE: This patient presented with coughing up/vomiting up a big glob of blood. Patient had had a sore throat for a few days. Patient did undergo laryngoscopy by Dr. Gordillo, who found a rather inflamed uvula, and that could have been bleeding and the source. The patient also did undergo a bronchoscopy by Dr. Marroquin that was unremarkable. Patient had a 2-D echocardiogram that showed preserved LV function, no wall motion abnormality. On the day of discharge, care was discussed with the patient and family at the bedside. Questions were answered. The patient will be given a short course of antibiotic and steroids for the uvula inflammation. On examination, lungs revealed fair entry. CARDIOVASCULAR: First and second sounds normal. Discussion and discharge planning more than 35 minutes. CONSULTATIONS: 1. Dr. Jil Willis from Cardiology. 2. Dr. Marroquin from Pulmonary. 3. Dr. Gordillo from ENT. DISCHARGE MEDICATIONS: 1. Aspirin 81 mg a day. 2. Gabapentin 600 mg t.i.d. 3. Hyzaar 100/12.5 one tablet p.o. daily. 4. Protonix 40 mg b.i.d. 5. Pravachol 20 mg at bedtime. 6. Augmentin 875 one tablet p.o. q.12; 10 tablets. 7. Synthroid 100 mcg p.o. daily. 8. Prednisone taper. Follow up with Dr. Jil Willis on 11/24/2017. Follow up with Dr. Gordillo in one week. Follow up with Dr. Rangel on 11/11/2017. MMODL / IJN: [id number] /
== END 2017-11-02 16:00 | disposition home or self-care (01) ==
LOC: EC 11:09 → 6SEL 15:20 → 5MS5E 11-01 20:35
PROVIDERS: ADMIT Hospitalist; ATTEND Hospitalist
DX: R04.2 Hemoptysis (principal); R07.2 Precordial pain; K21.9 Gastro-esophageal reflux disease without esophagitis; I10 Essential (primary) hypertension; E78.5 Hyperlipidemia, unspecified; M47.812 Spondylosis without myelopathy or radiculopathy, cervical region; M47.814 Spondylosis without myelopathy or radiculopathy, thoracic region; Z85.850 Personal history of malignant neoplasm of thyroid; Z79.890 Hormone replacement therapy; E89.0 Postprocedural hypothyroidism; J02.9 Acute pharyngitis, unspecified; J39.2 Other diseases of pharynx; G47.33 Obstructive sleep apnea (adult) (pediatric); F45.8 Other somatoform disorders; J44.9 Chronic obstructive pulmonary disease, unspecified; G57.92 Unspecified mononeuropathy of left lower limb; Z86.73 Personal history of transient ischemic attack (TIA), and cerebral infarction without residual deficits; Z79.82 Long term (current) use of aspirin; Z79.899 Other long term (current) drug therapy; Z91.048 Other nonmedicinal substance allergy status; Z88.5 Allergy status to narcotic agent; Z90.49 Acquired absence of other specified parts of digestive tract; Z98.1 Arthrodesis status; Z77.22 Contact with and (suspected) exposure to environmental tobacco smoke (acute) (chronic); Z84.89 Family history of other specified conditions
CPT/HCPCS: 99285 ×2; 31575; 96360; 96361; 36415; 93005; 93306; 84439 ×2; 84481; 80061; 80053 ×2; 80048; 84443 ×2; 82550 ×2; 82553 ×2; 83735; 84132; 84484 ×2; 85025 ×2; 85027; 85610; 85730; 70491; 71275; 31645; G0378 ×4; J2250; J2405; J2001; J3010; J2704; J7512; Q9967

== ENCOUNTER → 2018-04-05 | Outpatient (CLI) | payer OTHER ==
--- NOTE | 2018-04-05 12:18 | XR ---
EXAMINATION TYPE: XR shoulder complete RT DATE OF EXAM: 04/05/2018 CLINICAL HISTORY: Right shoulder pain due to injury 3 weeks ago. TECHNIQUE: Three views of the right shoulder are obtained. COMPARISON: None. FINDINGS: There is no acute fracture/dislocation evident in the right shoulder. There is mild to mod erate joint space loss at acromioclavicular joint. Distal acromion morphology is unremarkable. Glenoh umeral joint is maintained. The visualized ribs are intact and unremarkable. IMPRESSION: There is no acute fracture or dislocation in the right shoulder.
== END | disposition home or self-care (01) ==
LOC: RADXRMAIN 11:45
PROVIDERS: ATTEND Physician Assistant
DX: M25.511 Pain in right shoulder (principal)

== ENCOUNTER → 2018-05-17 | Outpatient (CLI) | payer OTHER ==
--- NOTE | 2018-05-17 12:50 | MR ---
EXAMINATION TYPE: MR shoulder RT wo con DATE OF EXAM: 05/17/2018 COMPARISON: Outside radiographs 05/01/2013 HISTORY: 57-year-old female Pain in right shoulder TECHNIQUE: Multiplanar, multisequence imaging of the right shoulder is performed without contrast. FINDINGS: There are some intermediate signal within the intracapsular portion of the long head biceps tendon rodriguez ggesting tendinosis. Moderate fluid along the extracapsular portion. Minimal bursal sided tearing of the middle third subscapularis tendon fibers. The majority of the ten don remains intact. Moderate degenerative joint space narrowing with marginal spurring and capsular hypertrophy at the ac romioclavicular joint with some mild periarticular edema. There is trace fluid within the subacromial/subdeltoid bursa. Focal tear measuring 9 mm long and 1.0 cm AP along the far anterior supraspinatus tendon at the footp rint appears primarily intrasubstance but may communicate with the articular surface. Heterogeneity o f both supraspinatus and infraspinatus tendons with bony irregularity and some cystic change along th e posterior aspect of the greater tuberosity. There is otherwise no high-grade partial or full-thickn ess tear. No atrophy of the rotator cuff musculature. There is moderate to severe degenerative change at the glenohumeral joint with significant loss of ar ticular cartilage along the humeral head and all also along the anterior mid to inferior glenoid. The re is marginal spurring and along the anterior glenoid, degenerative subchondral signal changes are p resent. Moderate glenohumeral joint effusion. Mild degenerative signal in the superior labrum and blunting of the posterior labrum No Hill-Sachs deformity or os acromiale. No suspicious bone marrow replacement. IMPRESSION: 1. Focal intrasubstance tear at the footprint of the far anterior supraspinatus tendon measuring 9 x 10 mm may have articular sided communication. 2. Minimal bursal sided tearing of the middle third subscapularis tendon. 3. Otherwise, no high-grade partial or full-thickness rotator cuff tear. No muscle atrophy. 4. Moderate to severe glenohumeral joint osteoarthrosis with moderate joint effusion which is likely reactive. 5. Contiguous joint fluid along the long head biceps tendon versus tenosynovitis. 6. Moderate AC joint OA.
== END | disposition home or self-care (01) ==
LOC: RADMRIMAIN 09:25
PROVIDERS: ATTEND Orthopaedic Surgery
DX: M19.011 Primary osteoarthritis, right shoulder (principal); M75.101 Unspecified rotator cuff tear or rupture of right shoulder, not specified as traumatic; S46.811A Strain of other muscles, fascia and tendons at shoulder and upper arm level, right arm, initial encounter

== ENCOUNTER → 2018-06-14 | Outpatient (CLI) | payer OTHER | END | disposition home or self-care (01) | LOC: LABWHC1 12:05 | PROVIDERS: ATTEND Family Medicine | DX: E87.6 Hypokalemia (principal) | CPT/HCPCS: 36415; 84132 ==

== ENCOUNTER → 2018-06-16 | Day surgery (SDC) | payer OTHER ==
[2018-06-14 12:45] VITALS: BMI 28.3
--- NOTE | 2018-06-15 11:35 | HP ---
HISTORY AND PHYSICAL CHIEF COMPLAINT: Right shoulder pain. HISTORY OF PRESENT ILLNESS: The patient is a 56-year-old, right-hand dominant, retired female who presents with progressive right shoulder pain worsening over the past several years. She is having pain with attempted overhead use and at night. She has tried therapy and anti- inflammatories without much relief. She notes constant pain. PAST MEDICAL HISTORY: Significant for thyroid cancer, depression, reflux disease, hypercholesterolemia, hypertension, hypothyroidism, peptic ulcer disease, TIAs, and COPD. PAST SURGICAL HISTORY: Significant for previous right ankle surgery, previous left shoulder surgery, cholecystectomy, partial thyroidectomy in addition to spinal fusion x2. CURRENT MEDICATIONS: 1. Aspirin. 2. Losartan. 3. Neurontin. 4. Pravastatin. 5. Synthroid. SENSITIVITY/ALLERGIES: She has sensitivity to PREDNISONE and allergies to DARVOCET. FAMILY HISTORY: Significant for heart disease. SOCIAL HISTORY: Negative for current tobacco or alcohol use. REVIEW OF SYSTEMS: Sixteen-point review of systems otherwise reviewed and is noncontributory. PHYSICAL EXAMINATION: On examination, the patient is approximately 5 feet 4 inches, 160 pounds of endomorphic habitus. HEENT exam is nonfocal. Neck is supple. On examination of her right shoulder, she is tender about the anterior subacromial space. She has moderate subacromial crepitus. Active range of motion, forward elevation 90 degrees, external rotation with arm at side 65 degrees, internal rotation to L3. Passively I am able to forward elevate her to 135 degrees. Motor strength is 4+/5 for external rotation, 5- over 5 for abduction. Impingement test, Neer test, and Speed tests are positive. Her distal neurovascular exam otherwise appears to be intact in the right upper extremity. MRI report 05/17/2018 right shoulder shows possible supraspinatus tear along with moderate glenohumeral joint osteoarthrosis. IMPRESSION: 1. Right shoulder impingement with possible rotator cuff tear. 2. Right proximal bicipital tendinosis. 3. Right glenohumeral joint osteoarthrosis. RECOMMENDATIONS: I talked to the patient at length regarding her condition and treatment options. At this point, she is quite symptomatic despite conservative measures. After thorough discussion, she opts to proceed with surgery. We will plan to proceed with arthroscopic evaluation with probable subacromial decompression, possible rotator cuff debridement versus repair, and possible biceps tenotomy. Risks and benefits were discussed at length in layman's terms. We will likely perform that as an outpatient procedure. MMODL / IJN: [id number] /
[~2018-06-16] MED LIST: DEXAMETHASONE SOD PHOSPHATE 10 MG/ML 1 ML VIAL IV ONE; EPINEPHrine (PF) 1 ML in SODIUM CHLORIDE 0.9% IRRIGATIO 3,000 ML IRRIGATION ONE; HYDROcodone/APAP 7.5-325MG 1 EACH TAB PO ONE; LACTATED RINGERS 1,000 ML IV ONE; LIDOCAINE 1% 20 ML VIAL (10MG/ML) FOR IV START INTRADERMA ONE; LIDOCAINE 1% INJ 10MG/ML (20 ML MDV) ONE; MIDAZOLAM 2 MG/2 ML VIAL IV ONE; MIDAZOLAM 2 MG/2 ML VIAL ONE; ONDANSETRON 4 MG/2 ML VIAL IVP ONE; PHENYLEPHRINE-0.9% NACL SYG 1 MG/10 ML SYRINGE ONE; PROPOFOL 10 MG/ML 20 ML VIAL IV ONE; ROPIVACAINE 5 MG/ML 30 ML VIAL ONE; SUCCINYLCHOLINE CHLORIDE 100 MG/5 ML SYR IV ONE; fentaNYL (PF) 50 MCG/ML 2 ML AMP ONE
[2018-06-16 06:42] VITALS: RESP 16
[2018-06-16] MEDS: fentaNYL (PF) 50 MCG/ML 2 ML AMP IV ONE ×3 (06:56→10:03)
[2018-06-16] MEDS: ceFAZolin 1,000 MG in DEXTROSE/WATER 1 50ML.BAG IVPB ONE ×2 (08:15→08:16)
--- NOTE | 2018-06-16 09:14 | P.ONQ ---
Anesthesiology Proc Note - PNB - Peripheral Nerve Block Performed Right Interscalene Single Time Out Performed: Yes Procedure Start Time: 06:54 Indication: Acute Post-Operative Pain, Analgesia Specifically requested for management of pain by DrSkinny: Darwin Kelsey Sedation Type: Sedate with meaningful contact maintained Preparation: Sterile Prep Position: Supine Catheter: None Needle Types: Other (see comment) (Pajunk) Needle Size: 50mm (2") Needle Gauge: 21 Technique: Ultrasound Injectate: 0.5% Ropivacaine (see comment for volume) (20cc) Blood Aspirated: No Pain Paresthesia on Injection Noted: No Resistance on Injection: Normal Events: Uneventful and Well Tolerated
--- NOTE | 2018-06-16 09:29 | P.OP ---
Date of Procedure: 06/16/18 Preoperative Diagnosis: Right shoulder impingement Postoperative Diagnosis: Same in addition to partial thickness rotator cuff tear, high-grade [place] thickness tear intra-articular portion long head of the biceps, adhesive capsulitis Procedure(s) Performed: Right shoulder arthroscopic subacromial decompression, biceps tenotomy, rotator cuff debridement, manipulation under anesthesia Anesthesia: matt SOTOMAYOR Surgeon: Darwin Kelsey Estimated Blood Loss (ml): 10 Pathology: none sent Condition: stable Disposition: PACU Indications for Procedure: The patient's a 57-year-old female who presents with progressive right shoulder pain despite conservative measures. A discussion of the risks and benefits of operative intervention versus continued conservative measures was made with the patient. She opted to proceed with surgery. Operative risks to include infection, neurovascular injury, development of blood clots, possible incomplete resolution of symptoms, possible worsening symptoms and need for subsequent procedures was discussed. Informed consent was obtained. Operative Findings: As below Description of Procedure: The patient was brought to the operating room, and after induction of general anesthesia was placed in a beachchair position. I examined the right shoulder. There was moderate adhesions therefore a gentle manipulation was performed first obtaining full external rotation then full forward elevation. Moderate adhesions were encountered. The right upper extremity was prepped and draped in normal fashion. The bony outlines the acromion, distal clavicle, and coracoid process were outlined with a skin marker. The glenohumeral joint was inflated with 50 mL of saline utilizing a spinal needle from posterior approach. A posterior portal was made through a 5 mm skin incision 1 cm medial and inferior to the posterior lateral border of the acromion. A blunt trocar was used to easily into the joint. Diagnostic arthroscopy was performed. An anterior portal was made just lateral to the coracoid process entering the joint above the subscapularis tendon. The subscapularis was intact. There was a partial thickness tear involving the supraspinatus and anterior portion. This was debrided back to stable base with a motorized shaver. This involved approximately 3 mm of the tendon thickness. The posterior portion the cuff was intact. On inspection of the intra-articular portion the biceps, a high-grade partial-thickness tear was noted. It was elected to proceed with tenotomy at this point. This was released from the superior labrum with electrocautery and allowed to retract the bicipital groove. On inspection the glenohumeral articulation, grade 2-3 chondral changes were noted diffusely involving the glenoid and the humeral head. The anterior labrum was intact. The inferior recess was inspected. The arthroscope was then placed into the subacromial space. A lateral portal was made through a 5 mm skin incision 2 cm inferior to the anterior lateral border acromion. The soft tissue on the undersurface of the acromion was debrided with a motorized shaver and electrocautery clearly defining the anterior medial and lateral borders. The coracoacromial ligament was detached from the anterior acromion with electrocautery. An anterior inferior acromioplasty was performed with a motorized leonid starting anterolateral, then extending posterior leg, then extending medially. I was able to convert to a flat acromion and this was verified from the posterior and lateral viewing portals. There was significant bursal thickening debrided with a motorized shaver. The rotator cuff appeared intact on the bursal surface. The arthroscope was removed. The portals were closed with simple 3-0 nylon suture. A sterile dressing was applied in addition to a sling. The patient was awoken from general anesthesia and transferred to the recovery room in good condition. Blood loss was estimated at 10 mL. No complications were incurred.
[2018-06-16 10:00] VITALS: TEMP 96.9
[2018-06-16 10:51] VITALS: BP 140/86; PULSE 106
== END | disposition home or self-care (01) ==
LOC: OR 06:14
PROVIDERS: ATTEND Orthopaedic Surgery
DX: M75.111 Incomplete rotator cuff tear or rupture of right shoulder, not specified as traumatic (principal); S46.111A Strain of muscle, fascia and tendon of long head of biceps, right arm, initial encounter; X58.XXXA Exposure to other specified factors, initial encounter; M75.01 Adhesive capsulitis of right shoulder; M19.011 Primary osteoarthritis, right shoulder; M75.41 Impingement syndrome of right shoulder; J44.9 Chronic obstructive pulmonary disease, unspecified; K21.9 Gastro-esophageal reflux disease without esophagitis; I10 Essential (primary) hypertension; F32.9 Major depressive disorder, single episode, unspecified; E78.00 Pure hypercholesterolemia, unspecified; E78.5 Hyperlipidemia, unspecified; K27.9 Peptic ulcer, site unspecified, unspecified as acute or chronic, without hemorrhage or perforation; E89.0 Postprocedural hypothyroidism; Z79.82 Long term (current) use of aspirin; Z79.890 Hormone replacement therapy; Z79.899 Other long term (current) drug therapy; Z88.5 Allergy status to narcotic agent; Z88.8 Allergy status to other drugs, medicaments and biological substances; Z91.048 Other nonmedicinal substance allergy status; Z98.1 Arthrodesis status; Z85.850 Personal history of malignant neoplasm of thyroid; Z86.73 Personal history of transient ischemic attack (TIA), and cerebral infarction without residual deficits
CPT/HCPCS: 64415; 29822; 29826; J2250; J1100; J2405; J0171; J2001; J3010; J0690; J2795; J2370; J0330; J2704

== ENCOUNTER → 2019-01-31 | Outpatient (CLI) | payer OTHER ==
--- NOTE | 2019-02-01 14:17 | MM ---
Reason for exam: screening (asymptomatic). Last mammogram was performed 1 year and 8 months ago. History: Patient is postmenopausal and has history of other cancer at age 48. Family history of breast cancer in maternal grandmother. Benign ultrasound-guided cyst aspiration of the left breast, January 02, 2003. Cyst aspiration of the left breast. Took hormonal contraceptives for 5 years beginning at age 20. Taking other hormone. Physical Findings: A clinical breast exam by your physician is recommended on an annual basis and results should be correlated with mammographic findings. MG Screening Mammo w CAD Bilateral CC and MLO view(s) were taken. Prior study comparison: June 07, 2017, bilateral MG 3d screening mammo w/cad. April 30, 2016, bilateral MG screening mammo w CAD. December 24, 2014, bilateral MG screening mammo w CAD. The breast tissue is heterogeneously dense. This may lower the sensitivity of mammography. No suspicious abnormality. Left breast biopsy marker and associated upper outer quadrant mass that has decreased in size compared to 2015. No significant changes when compared with prior studies. ASSESSMENT: Benign, BI-RAD 2 RECOMMENDATION: Routine screening mammogram of both breasts in 1 year.
== END | disposition home or self-care (01) ==
LOC: RADMAMWWP 07:01
PROVIDERS: ATTEND Family Medicine
DX: Z12.31 Encounter for screening mammogram for malignant neoplasm of breast (principal)
CPT/HCPCS: 77067

== ENCOUNTER → 2019-06-11 | Outpatient (CLI) | payer OTHER ==
[2019-06-11 13:26] LABS: T4, Free (Free Thyroxine) 1.3 ng/dL (0.78-2.19)
--- NOTE | 2019-06-11 14:58 | US ---
EXAMINATION TYPE: US thyroid st tissue head/neck DATE OF EXAM: 06/11/2019 COMPARISON: NONE CLINICAL HISTORY: Z85.850 History of thyroid cancer. GLAND SIZE: Right Lobe: Surgically absent Left Lobe: 5.1 x 1.7 x 2.0cm Overall Parenchyma: grossly heterogeneous Isthmus Thickness: 0.2 cm NODULES RIGHT: Surgically absent LEFT: # of nodules measured on left: 0 ISTHMUS: # of nodules measured in the isthmus: 0 Bilateral neck scanned, no evidence of lymphadenopathy. IMPRESSION: Surgical absence of the right thyroid lobe. Diffuse glandular heterogeneity is seen on th e left without discrete nodule.
== END | disposition home or self-care (01) ==
LOC: RADUSWWP 11:54
PROVIDERS: ATTEND Internal Medicine
DX: E89.0 Postprocedural hypothyroidism (principal); Z85.850 Personal history of malignant neoplasm of thyroid
CPT/HCPCS: 76536; 84439; 84443

== ENCOUNTER 2019-07-20 09:24 | Observation (INO) | payer OTHER ==
[2019-07-20] MEDS ORDERED: SODIUM CHLORIDE 0.9% 1,000 ML IV STA (10:06)
--- NOTE | 2019-07-20 10:14 | ED ---
Dizziness HPI - General Chief Complaint: Dizziness Stated Complaint: Dizziness Time Seen by Provider: 07/20/19 09:53 Source: patient, RN notes reviewed, old records reviewed Mode of arrival: EMS Limitations: no limitations - History of Present Illness Initial Comments: Patient is a 58-year-old female who presents the emergency department today for evaluation with chief complaint of episodes of dizziness and lightheadedness while at her doctor's office today. Patient reportedly was going there for regular checkup. While she was there with have her standing and she was feeling dizzy and lightheaded. Patient states that she also has some tingling sensation in her left arm with this occurred. She does have a history of CVA and TIAs. She denies any chest pain at this time. She denies any localized were completely diminished sensation. - Related Data Home Medications Medication Instructions Recorded Confirmed Aspirin 81 mg PO DAILY 11/14/13 06/16/18 Losartan/Hydrochlorothiazide 1 tab PO QAM 10/31/17 06/16/18 [Hyzaar 100-12.5 Tablet] Pantoprazole Sodium [Protonix] 40 mg PO BID 10/31/17 06/16/18 Pravastatin Sodium [Pravachol] 20 mg PO HS 10/31/17 06/16/18 DULoxetine HCL [Cymbalta] 60 mg PO HS 06/14/18 06/16/18 Gabapentin 800 mg PO BID 06/14/18 06/16/18 Levothyroxine Sodium [Synthroid] 125 mcg PO QAM 06/14/18 06/16/18 Previous Rx's Medication Instructions Recorded HYDROcodone/APAP 7.5-325MG [[place] 1 tab PO Q6HR PRN 7 Days #28 tab 06/16/18 7.5-325] Allergies Allergy/AdvReac Type Severity Reaction Status Date / Time prednisone Allergy Unknown Verified 07/20/19 09:38 propoxyphene napsylate Allergy Swelling Verified 07/20/19 09:38 [From Darvocet-N 100] adhesive tape AdvReac Itching, Verified 07/20/19 09:38 and takes her skin off Review of Systems ROS Statement: Those systems with pertinent positive or pertinent negative responses have been documented in the HPI. ROS Other: All systems not noted in ROS Statement are negative. Past Medical History Past Medical History: CVA/TIA, Hyperlipidemia, Hypertension, Thyroid Disorder Additional Past Medical History / Comment(s): hx ulcer at 20YO, thyroid cancer History of Any Multi-Drug Resistant Organisms: None Reported Past Surgical History: Back Surgery, Cholecystectomy, Orthopedic Surgery, Tubal Ligation Additional Past Surgical History / Comment(s): thyroidectomy, spinal fusion, rt shoulder surgery,rt foot suregery, bladder sling Past Anesthesia/Blood Transfusion Reactions: Motion Sickness, Postoperative Nausea & Vomiting (PONV) Past Psychological History: No Psychological Hx Reported Smoking Status: Never smoker Past Alcohol Use History: None Reported Past Drug Use History: None Reported - Past Family History Sister(s) Family Medical History: Deep Vein Thrombosis (DVT) General Exam - General Exam Comments Initial Comments: 58-year-old female. Alert and oriented 3. Patient appears in no acute distress. Limitations: no limitations General appearance: alert, in no apparent distress Head exam: Present: atraumatic, normocephalic, normal inspection Eye exam: Present: normal appearance, PERRL, EOMI. Absent: scleral icterus, conjunctival injection, periorbital swelling ENT exam: Present: normal exam, mucous membranes moist, other (Patient does have some left-sided facial droop however this was questioned twice by her he states that this appears chronic with no acute changes. Patient does have full range of motion of the face with smiling.) Neck exam: Present: normal inspection. Absent: tenderness, meningismus, lymphadenopathy Respiratory exam: Present: normal lung sounds bilaterally. Absent: respiratory distress, wheezes, rales, rhonchi, stridor Cardiovascular Exam: Present: regular rate, normal rhythm, normal heart sounds. Absent: systolic murmur, diastolic murmur, rubs, gallop, clicks GI/Abdominal exam: Present: soft, normal bowel sounds. Absent: distended, tenderness, guarding, rebound, rigid Extremities exam: Present: normal inspection, full ROM, normal capillary refill. Absent: tenderness, pedal edema, joint swelling, calf tenderness Back exam: Present: normal inspection Neurological exam: Present: alert, oriented X3, CN II-XII intact Psychiatric exam: Present: normal affect, normal mood Skin exam: Present: warm Course Vital Signs 07/20/19 07/20/19 09:30 10:00 Temperature 97.9 F Pulse Rate 68 70 Respiratory 16 15 Rate Blood Pressure 148/92 144/86 O2 Sat by Pulse 98 98 Oximetry Medical Decision Making - Medical Decision Making 58-year-old female. Alert and oriented 3. She presents emergency department today for episodes of dizziness, near syncope, left arm tingling sensation the doctor's office today. When evaluating the Patient. Patient did have some left-sided lower facial droop however Patient is very myself and Dr. Puente twice and Patient is able to smile and has able to have full range of motion of the lower lip. Also patient's states that he does not notice that she has a left-sided facial droop. Patient has no other acute neurological deficits. At this time patient's CT of the brain is completed shows chronic age-related changes. CT angios negative for any stenosis process. Patient at this time has normal labs. Denies any chest pain at this time. She had a history of CVAs and TIAs in the past. She was given meclizine for some dizziness as well as aspirin. Discussed the case with Dr. Puente who also evaluated the Patient again. Patient admitted at this time for dizziness, near syncope. Dr. Kerns requests consult to neurology. - Lab Data Result diagrams: 07/20/19 09:55 07/20/19 09:55 Lab Results 07/20/19 07/20/19 07/20/19 Range/Units 09:55 09:55 09:55 WBC 5.6 (3.8-10.6) k/uL RBC 4.51 (3.80-5.40) m/uL Hgb 13.3 (11.4-16.0) gm/dL Hct 40.1 (34.0-46.0) % MCV 88.9 (80.0-100.0) fL MCH 29.6 (25.0-35.0) pg MCHC 33.2 (31.0-37.0) g/dL RDW 12.7 (11.5-15.5) % Plt Count 183 (150-450) k/uL Neutrophils % 49 % Lymphocytes % 38 % Monocytes % 7 % Eosinophils % 2 % Basophils % 1 % Neutrophils # 2.8 (1.3-7.7) k/uL Lymphocytes # 2.1 (1.0-4.8) k/uL Monocytes # 0.4 (0-1.0) k/uL Eosinophils # 0.1 (0-0.7) k/uL Basophils # 0.0 (0-0.2) k/uL PT 10.4 (9.0-12.0) sec INR 1.0 (<1.2) Sodium 136 L (137-145) mmol/L Potassium 3.9 (3.5-5.1) mmol/L Chloride 99 (98-107) mmol/L Carbon Dioxide 28 (22-30) mmol/L Anion Gap 9 mmol/L BUN 26 H (7-17) mg/dL Creatinine 0.92 (0.52-1.04) mg/dL Est GFR (CKD-EPI)AfAm 81 (>60 ml/min/1.73 sqM) Est GFR (CKD-EPI)NonAf 70 (>60 ml/min/1.73 sqM) Glucose 110 H (74-99) mg/dL Calcium 9.0 (8.4-10.2) mg/dL Total Bilirubin 0.5 (0.2-1.3) mg/dL AST 23 (14-36) U/L ALT 20 (4-34) U/L Alkaline Phosphatase 71 (38-126) U/L Troponin I (0.000-0.034) ng/mL Total Protein 7.0 (6.3-8.2) g/dL Albumin 4.1 (3.5-5.0) g/dL Urine Color Urine Appearance (Clear) Urine pH (5.0-8.0) Ur Specific [place] (1.001-1.035) Urine Protein (Negative) Urine Glucose (UA) (Negative) Urine Ketones (Negative) Urine Blood (Negative) Urine Nitrite (Negative) Urine Bilirubin (Negative) Urine Urobilinogen (<2.0) mg/dL Ur Leukocyte Esterase (Negative) 07/20/19 07/20/19 Range/Units 09:55 11:12 WBC (3.8-10.6) k/uL RBC (3.80-5.40) m/uL Hgb (11.4-16.0) gm/dL Hct (34.0-46.0) % MCV (80.0-100.0) fL MCH (25.0-35.0) pg MCHC (31.0-37.0) g/dL RDW (11.5-15.5) % Plt Count (150-450) k/uL Neutrophils % % Lymphocytes % % Monocytes % % Eosinophils % % Basophils % % Neutrophils # (1.3-7.7) k/uL Lymphocytes # (1.0-4.8) k/uL Monocytes # (0-1.0) k/uL Eosinophils # (0-0.7) k/uL Basophils # (0-0.2) k/uL PT (9.0-12.0) sec INR (<1.2) Sodium (137-145) mmol/L Potassium (3.5-5.1) mmol/L Chloride (98-107) mmol/L Carbon Dioxide (22-30) mmol/L Anion Gap mmol/L BUN (7-17) mg/dL Creatinine (0.52-1.04) mg/dL Est GFR (CKD-EPI)AfAm (>60 ml/min/1.73 sqM) Est GFR (CKD-EPI)NonAf (>60 ml/min/1.73 sqM) Glucose (74-99) mg/dL Calcium (8.4-10.2) mg/dL Total Bilirubin (0.2-1.3) mg/dL AST (14-36) U/L ALT (4-34) U/L Alkaline Phosphatase (38-126) U/L Troponin I <0.012 (0.000-0.034) ng/mL Total Protein (6.3-8.2) g/dL Albumin (3.5-5.0) g/dL Urine Color Light Yellow Urine Appearance Clear (Clear) Urine pH 8.0 (5.0-8.0) Ur Specific [place] 1.023 (1.001-1.035) Urine Protein Negative (Negative) Urine Glucose (UA) Negative (Negative) Urine Ketones Negative (Negative) Urine Blood Negative (Negative) Urine Nitrite Negative (Negative) Urine Bilirubin Negative (Negative) Urine Urobilinogen <2.0 (<2.0) mg/dL Ur Leukocyte Esterase Negative (Negative) 07/20/19 10:14 EKG shows normal sinus rhythm normal EKG. Ventricular rate of 63 bpm. [place] interval is 196 ms. RS is 78. QT QTc is 404/423 ms. - Radiology Data Radiology results: report reviewed no Stenosis significant diameter reduction to account for patient's symptoms. The CT of the hand and neck showed no evidence of any acute intracranial abnormality. Chest x-ray is negative for any acute cardio pulmonary process. CT of the brain shows age-related atrophy and chronic small vessel ischemic change without acute intracranial process seen at this time. Disposition Clinical Impression: Near syncope, Left hand paresthesia, Dizziness Disposition: ADMITTED IP TO THIS HOSP Condition: Stable Is patient prescribed a controlled substance at d/c from ED?: No Referrals: Britton Rangel DO [Primary Care Provider] - 1-2 days Time of Disposition: 12:00
[2019-07-20] MEDS: ASPIRIN 81 MG PO STA ×2 (10:16→10:18)
[2019-07-20] MEDS: SODIUM CHLORIDE 0.9% 1,000 ML IV SCH (10:17)
[2019-07-20 10:20] LABS: Basophils % (A) 1 %; Eosinophils # (A) 0.1 k/uL (0-0.7); Eosinophils % (A) 2 %; HCT 40.1 % (34.0-46.0); HGB 13.3 gm/dL (11.4-16.0); Lymphocytes # (A) 2.1 k/uL (1.0-4.8); Lymphocytes % (A) 38 %; MCH 29.6 pg (25.0-35.0); MCHC 33.2 g/dL (31.0-37.0); MCV 88.9 fL (80.0-100.0); Mean Platelet Volume 9.6; Monocytes # (A) 0.4 k/uL (0-1.0); Monocytes % (A) 7 %; Neutrophils # (A) 2.8 k/uL (1.3-7.7); Neutrophils % (A) 49 %; Platelet Count 183 k/uL (150-450); RBC 4.51 m/uL (3.80-5.40); RDW 12.7 % (11.5-15.5); WBC 5.6 k/uL (3.8-10.6)
[2019-07-20 10:30] LABS: Prothrombin Time 10.4 sec (9.0-12.0)
[2019-07-20 10:32] LABS: Albumin 4.1 g/dL (3.5-5.0); Potassium 3.9 mmol/L (3.5-5.1); Total Bilirubin 0.5 mg/dL (0.2-1.3)
--- NOTE | 2019-07-20 10:45 | CT ---
EXAMINATION TYPE: CT brain wo con DATE OF EXAM: 07/20/2019 COMPARISON: 06/26/2012 HISTORY: Headache, weakness, numbness of left arm CT DLP: 1071.[address] of the brain was performed. The ventricles, basal cisterns and sulci overlying the cerebral convexities demonstrate mild enlargem ent. There is no evidence for intracranial hemorrhage or sulcal effacement. There is decreased attenuation about the periventricular white matter and deep white matter of both c erebral hemispheres, compatible with chronic small vessel ischemia. Differential diagnosis does inclu de demyelination. No mass effects are seen.No midline shift. Osseous calvarium is intact. If symptoms persist consider MRI. IMPRESSION: 1. Age related atrophic and chronic small vessel ischemic change without acute intracranial process s een at this time.
--- NOTE | 2019-07-20 10:54 | XR ---
EXAMINATION TYPE: XR chest 2V DATE OF EXAM: 07/20/2019 COMPARISON: 06/27/2012 HISTORY: Shortness of breath TECHNIQUE: Frontal and lateral views of the chest are obtained. FINDINGS: Scattered senescent parenchymal changes noted. Hyperinflation compatible with COPD. No evidence for infiltrate. No evidence for atelectasis. Heart size is stable. Mediastinal structures are stable and grossly unremarkable. No evidence for hilar prominence. Degenerative changes dorsal spine. IMPRESSION: 1. No evidence for acute pulmonary disease.
--- NOTE | 2019-07-20 11:04 | CT ---
EXAMINATION TYPE: CT angio head neck DATE OF EXAM: 07/20/2019 COMPARISON: none HISTORY: Headache, weakness and numbness left arm CT DLP: 354.9 mGycm CONTRAST: Performed with IV Contrast, patient injected with 65 mL of Isovue 370. Combination Contrast CTA cervical carotids and [place] CTA cervical carotids with 3-D recons truction Contrast CTA of the cervical carotids was performed 3-D reconstruction imaging obtained at a separate workstation. Right carotid system: Mild plaque is seen of the right common carotid artery. There is mild plaque a lso noted at the carotid bulb and proximal ICA. No significant diameter reduction. ECA is patent. Right vertebral artery appears unremarkable. Left carotid system: Mild plaque is seen of the left common carotid artery. There is mild plaque als o noted at the carotid bulb and proximal ICA. No significant diameter reduction. ECA is patent. Lef t vertebral artery appears unremarkable. IMPRESSION: 1. No significant diameter reduction to account for the patient's symptoms. CTA [place] with 3-D reconstruction Contrast CTA of the [place] was performed 3-D reconstruction imaging obtained at a separate workstation. Vertebrobasilar system as well as intracranial portions of the internal carotid arteries and their ma césar tributaries are patent. I do not see evidence for sizable aneurysm or vascular malformation. Pl ease note MRI provides greater sensitivity and specificity. Visualized brain appears grossly unremar kable. IMPRESSION: 1. No significant abnormality.
[2019-07-20 11:33] LABS: Appearance,Urine Clear (Clear); Bilirubin,Urine Negative (Negative); Blood,Urine Negative (Negative); Color,Urine Light Yellow; Glucose,Urine (UA) Negative (Negative); Ketones,Urine Negative (Negative); Leukocyte Esterase,Urine Negative (Negative); Nitrite,Urine Negative (Negative); Protein,Urine Negative (Negative); Specific Gravity,Urine 1.023 (1.001-1.035); Urobilinogen,Urine <2.0 mg/dL (<2.0)
[2019-07-20] MEDS ORDERED: MECLIZINE 12.5 MG TAB PO STA (11:33)
[2019-07-20] MEDS ORDERED: IBUPROFEN 800 MG TAB PO PRN (12:22)
[2019-07-20] MEDS ORDERED: CYCLOBENZAPRINE 10 MG TAB PO PRN (12:22)
[2019-07-20] MEDS: PREGABALIN 100 MG CAP PO SCH ×2 (12:56→18:17)
--- NOTE | 2019-07-20 16:07 | P.CNNES ---
History of Present Illness Consult date: 07/20/19 Requesting physician: Chely Anglin Reason for Consult: Near syncope, dizziness, paresthesias History of Present Illness: Patient is a 58-year-old female, who came to the hospital because of episodes of dizziness, lightheadedness and near syncope while at the doctor's office today. Patient states that she went to her doctor's office as a routine check at 8:15 AM. While she was sitting in the examination table, she started feeling hot, felt pressure in the ears, and left hand was tingling and she felt she will pass out. She did not pass out, as the office staff leg laid her down. Patient states that when she arrived to the clinic, the blood pressure was normal and systolics around 120. However when they checked her blood pressure after this event, was 98/60, pulse rate 67 and saturation 96%. EKG shows normal sinus rhythm. Patient states that they tried to sit her up, and again she almost passed out. Patient was sent to the hospital by ambulance. Patient states that her left hand still feels slightly thick. Patient denies any other focal symptoms. Patient underwent CT head showed age-related atrophic and chronic small vessel ischemic changes without acute intracranial process. I reviewed computed tomography scan of the head, and does not have any acute findings. Paranasal sinuses and external auditory canal appears clear. Chest x-ray showed no evidence of acute cardiopulmonary disease. EKG was normal sinus rhythm. CTA of head and neck were normal, showed no significant diameter reduction to account for the patient's symptoms. CBC, PT/PTT, Chem-20 is normal with sodium 136. UA negative. Her thyroid functions are normal on 06/11/2019. Vitamin D 36.8. Vitamin B12 387 on 08/17/2017. Lipids are normal. Patient had a 2-D echo performed previously on 11/01/2017, in which her ejection fraction is 55- 60%. Left atrial size is normal. Patient has history of hypertension and hyperlipidemia, denies diabetes. She is never smoke or does not drink alcohol. Patient does take aspirin 81 mg daily for last 10 years. She did not run out of it. 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 I could not see any such records in [facility]. Patient has history of chronic back pain and left leg issues from back pain. Review of Systems As above. Completely unremarkable. Patient does have chronic back pain, and left leg weakness from back issues. Patient has been evaluated in the ER multiple times for back pain. Denies any chest pain shortness or breath wheezing or cough. Denies double vision or loss of vision hearing loss hoarseness sore throat dysphagia. Past Medical History Past Medical History: CVA/TIA, Hyperlipidemia, Hypertension, Thyroid Disorder Additional Past Medical History / Comment(s): hx ulcer at 20YO, thyroid cancer History of Any Multi-Drug Resistant Organisms: None Reported Past Surgical History: Back Surgery, Cholecystectomy, Orthopedic Surgery, Tubal Ligation Additional Past Surgical History / Comment(s): thyroidectomy, spinal fusion, rt shoulder surgery,rt foot suregery, bladder sling Past Anesthesia/Blood Transfusion Reactions: Motion Sickness, Postoperative Nausea & Vomiting (PONV) Past Psychological History: No Psychological Hx Reported Smoking Status: Never smoker Past Alcohol Use History: None Reported Past Drug Use History: None Reported - Past Family History Sister(s) Family Medical History: Deep Vein Thrombosis (DVT) Medications and Allergies Home Medications Medication Instructions Recorded Confirmed Type Aspirin 81 mg PO DAILY 11/14/13 07/20/19 History Pantoprazole Sodium [Protonix] 40 mg PO BID 10/31/17 07/20/19 History Pravastatin Sodium [Pravachol] 30 mg PO HS 10/31/17 07/20/19 History DULoxetine HCL [Cymbalta] 60 mg PO HS 06/14/18 07/20/19 History Levothyroxine Sodium [Synthroid] 125 mcg PO QAM 06/14/18 07/20/19 History Ascorbic Acid [Vitamin C] 500 mg PO DAILY 07/20/19 07/20/19 History Celecoxib [CeleBREX] 200 mg PO DAILY PRN 07/20/19 07/20/19 History Cholecalciferol [Vitamin D3 (25 1,000 unit PO DAILY 07/20/19 07/20/19 History Mcg = 1000 Iu)] Cyclobenzaprine [Flexeril] 10 mg PO HS PRN 07/20/19 07/20/19 History Hydrocodone/Acetaminophen [[place] 1 tab PO BID 07/20/19 07/20/19 History 5-325] Ibuprofen [Motrin] 800 mg PO Q8H PRN 07/20/19 07/20/19 History Inulin/Chromium Picolinate [[place] 2 tab PO DAILY 07/20/19 07/20/19 History Gummies Chew] Irbesartan/Hydrochlorothiazide 1 tab PO DAILY 07/20/19 07/20/19 History [Irbesartan-Hctz 300-12.5 mg Tb] Multivitamins, Thera [Multivitamin 1 tab PO DAILY 07/20/19 07/20/19 History (formulary)] Pregabalin 100 mg PO TID 07/20/19 07/20/19 History Zolpidem [Ambien] 10 mg PO HS 07/20/19 07/20/19 History Allergies Allergy/AdvReac Type Severity Reaction Status Date / Time prednisone Allergy Unknown Verified 07/20/19 12:08 propoxyphene napsylate Allergy Swelling Verified 07/20/19 12:08 [From Darvocet-N 100] adhesive tape AdvReac Itching, Verified 07/20/19 12:08 and takes her skin off Physical Examination - Vital Signs Vital Signs: Vital Signs Temp Pulse Resp BP Pulse Ox 07/20/19 14:00 79 18 137/79 98 07/20/19 12:00 73 12 139/91 100 07/20/19 11:00 70 10 L 148/95 99 07/20/19 10:00 70 15 144/86 98 07/20/19 09:30 97.9 F 68 16 148/92 98 Intake and Output 07/20/19 07/20/19 07/20/19 06:59 14:59 22:59 Other: Weight 81.647 kg On examination patient is a middle aged female, in no distress. Patient is alert and awake oriented to time place and person. Speech and language functions are normal. Attention and concentration fund of knowledge is adequate. On cranial exam showed pupils are round and reactive to light, visual [place] are full on confrontation, extraocular muscles intact with no nystagmus. Patient left side of the face appears slightly droopy, but her believes that this is baseline. Appears normal or negative testing. Tongue protrudes the midline. Palatal elevation and sensation normal. On muscle strength testing there is no pronator drift and the strength is normal in arms and legs distally and proximally. Left leg not checked in detail because of her neck issues. Reflexes are 1+ in the upper limbs, 2+ at the knees, diminished at the ankles and plantars are downgoing. Sensory touch is equal. Patient was feeling less cold in the left arm as compared to the right. No ataxia for fing er-to-nose testing. Tone and bulk of muscles normal. No carotid bruit or murmur. Peripheral pulses present. Results - Laboratory Findings CBC and BMP: 07/20/19 09:55 07/20/19 09:55 Abnormal Lab Findings: Abnormal Labs 07/20/19 09:55 Sodium 136 L BUN 26 H Glucose 110 H Assessment and Plan Assessment: * 58-year-old female with near syncope. Her symptoms are suggestive of possible vasovagal syncope, although patient was in a seated position on the examination table at her doctor's office, and was not under any stressful situation. Patient's blood pressure was low 98/60 at the scene, suggestive of syncopal event. Current examination is nonfocal. * Left arm paresthesias, unclear cause. Rule out TIA. * Hypertension Plan: * Patient is undergoing an MRI of the brain. * Continue aspirin. Suggest increasing the dose of aspirin to 81 mg twice a day. * We will check hemoglobin A1c. * Patient had a normal CTA of head and neck. * We will check urine drug screen, lipid panel.
[2019-07-20 16:44] LABS: Amphetamine Screen,Urine Not Detected (NotDetected); Barbiturate Screen,Urine Not Detected (NotDetected); Benzodiazepines Screen,Urine Not Detected (NotDetected); Cocaine Screen,Urine Not Detected (NotDetected); Methadone Screen, Urine Not Detected (NotDetected); Opiate Screen,Urine Detected (NotDetected); Oxycodone Screen, Urine Not Detected (NotDetected); Phencyclidine Screen,Urine Not Detected (NotDetected); Tricyclic Antidepressant,Urine Not Detected (NotDetected); Urn Cannabinoid Scrn Not Detected (NotDetected)
[2019-07-20] MEDS: HYDROcodone/APAP 5-325MG 1 EACH TAB PO SCH (18:16)
[2019-07-20] MEDS: FAMOTIDINE 20 MG TAB PO SCH (18:17)
[2019-07-20] MEDS: PANTOPRAZOLE 40 MG TABLET PO SCH (18:17)
[2019-07-20] MEDS ORDERED: PRAVASTATIN SODIUM 20 MG TAB PO SCH (21:00)
[2019-07-20] MEDS ORDERED: ZOLPIDEM 10 MG TAB PO SCH (21:00)
[2019-07-20] MEDS ORDERED: DULoxetine HCL 60 MG CAPSULE.DR PO SCH (21:00)
[2019-07-21 04:34] LABS: Cholesterol 144 mg/dL (<200); HDL Cholesterol 39 mg/dL (40-60); LDL Cholesterol,Calculated 86 mg/dL (0-99); Triglycerides 96 mg/dL (<150)
[2019-07-21] MEDS: PANTOPRAZOLE 40 MG TABLET PO SCH (06:24)
[2019-07-21] MEDS: SODIUM CHLORIDE 0.9% 1,000 ML IV SCH ×2 (06:25→06:26)
[2019-07-21] MEDS ORDERED: LEVOTHYROXINE 125 MCG TAB PO SCH (06:30)
--- NOTE | 2019-07-21 08:29 | MR ---
EXAMINATION TYPE: MR brain wo con DATE OF EXAM: 07/21/2019 8:11 AM. COMPARISON: NONE. HISTORY: Vertigo and left arm paresthesia. Technique: Multiplanar, multiecho imaging of the brain was obtained without intravenous contrast. FINDINGS: Midline structures are unremarkable. There is a normal craniocervical junction. Echoplanar diffusion imaging is normal. There are normal vascular flow voids. The orbits are unremarkable. There is no evidence of a CP angle mass lesion. There is no acute focal lesion, mass effect or midline shift identified. I do not see evidence of int racranial blood. IMPRESSION: NO ACUTE INTRACRANIAL ABNORMALITY.
[2019-07-21] MEDS ORDERED: CHOLECALCIFEROL 1,000 UNIT TAB PO SCH (09:00)
[2019-07-21] MEDS ORDERED: LOSARTAN 50 MG TAB PO SCH (09:00)
[2019-07-21] MEDS ORDERED: HYDROCHLOROTHIAZIDE 12.5 MG CAP PO SCH (09:00)
[2019-07-21] MEDS ORDERED: CALCIUM POLYCARBOPHIL 625 MG TAB PO SCH (09:00)
[2019-07-21] MEDS ORDERED: ASCORBIC ACID 500 MG TAB PO SCH (09:00)
[2019-07-21] MEDS: PREGABALIN 100 MG CAP PO SCH (09:22)
[2019-07-21] MEDS: HYDROcodone/APAP 5-325MG 1 EACH TAB PO SCH (09:23)
[2019-07-21] MEDS: FAMOTIDINE 20 MG TAB PO SCH (09:29)
[2019-07-21] MEDS ORDERED: MELOXICAM 7.5 MG TAB PO PRN (09:35)
[2019-07-21] MEDS ORDERED: ENOXAPARIN 40 MG/0.4 ML SYRINGE SQ SCH (09:45)
[2019-07-21 11:28] VITALS: BP 133/82; PULSE 70; RESP 16; TEMP 97.9
[2019-07-21] MEDS ORDERED: ASPIRIN 325 MG TAB PO SCH (12:00)
--- NOTE | 2019-07-21 14:26 | P.HPIM ---
History of Present Illness H&P Date: 07/21/19 Chief Complaint: Left arm numb History of presenting complaint: This is a very pleasant 58-year-old patient of Dr. Rangel. Chronic stable medical conditions include GERD, hypertension, osteoarthritis, hypothyroid. Patient's had a TIA in the past and had been followed for Dr. Morales. Patient last night had developed significant headache at the back part of the head. Was doing well in the morning. Had gone to see her family doctor. There she experienced a burning sensation behind the left ear left arm and a bit numb and she nearly fell off from the examining table. She was sent in here. No change in speech or swallowing. There may have been some numbness on the left part of the mouth. She was seen by neurologist yesterday evening. Initial computed tomography scan of the brain and CT angiogram was negative. MRI of the brain was ordered. Patient's symptoms are resolved. at the bedside. Patient normally does not get headaches. No fever or chills. Review of systems: GEN.: None EYES: None HEENT: As above NECK: None RESPIRATORY: None CARDIOVASCULAR: None GASTROINTESTINAL: None GENITOURINARY: None MUSCULOSKELETAL: None LYMPHATICS: None HEMATOLOGICAL: None PSYCHIATRY: None NEUROLOGICAL: As above Past medical history to include: GERD, hypertension, osteoarthritis, hypothyroid, thyroid cancer, history of ulcer age of 20 years Social history: Does not smoke or drink alcohol. 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 . Physical examination: VITAL SIGNS: 97.9, 68, 16, 148/92, 98% on room air GENERAL: BMI 30.4, laying in bed, comfortable. EYES: Pupils equal. Conjunctiva normal. HEENT: External appearance of nose and ears normal, oral cavity grossly normal. NECK: JVD not raised; masses not palpable. HEART: First and second heart sounds are normal; no edema. LUNGS: Respiratory rate normal; clear to auscultation. ABDOMEN: Soft, nontender, liver spleen not palpable, no masses palpable. PSYCH: Alert and oriented x3; mood and affect normal. NEUROLOGICAL: Cranial nerves grossly intact; no facial asymmetry, power and sensation grossly intact. LYMPHATICS: No lymph nodes palpable in the axilla and neck INVESTIGATIONS, reviewed in the clinical context: White count 5.6 hemoglobin 13.3 platelets 183 potassium 3.9 creatinine 0.92. Troponin I negative UA negative Urine drug screen positive for opiates Computed tomography scan brain-acute CT angiogram of the brain-no significant EKG tracing personally reviewed by me-normal sinus rhythm Chest x-ray film personally reviewed by me-negative Assessment: -This is a patient to previous evening had a headache in the posterior part and the following day had an episode of left arm numbness that resolved no change in speech or any focal weakness. Initial testing has been negative. TIA probable -Essential hypertension -GERD -Hypothyroid -Obesity BMI 30.4 Plan: MRI was ordered. Patient otherwise doing well. Home medications are to be continued. Aspirin will be changed to Plavix. Patient was seen by neurology Dr. Recinos. Past Medical History Past Medical History: CVA/TIA, GERD/Reflux, Hyperlipidemia, Hypertension, Thyroid Disorder Additional Past Medical History / Comment(s): hx ulcer at 20YO, thyroid cancer History of Any Multi-Drug Resistant Organisms: None Reported Past Surgical History: Back Surgery, Cholecystectomy, Orthopedic Surgery, Tubal Ligation Additional Past Surgical History / Comment(s): thyroidectomy, spinal fusion, rt shoulder surgery,rt foot suregery, bladder sling Past Anesthesia/Blood Transfusion Reactions: Motion Sickness, Postoperative Nausea & Vomiting (PONV) Past Psychological History: No Psychological Hx Reported Smoking Status: Never smoker Past Alcohol Use History: None Reported Past Drug Use History: None Reported - Past Family History Sister(s) Family Medical History: Deep Vein Thrombosis (DVT) Medications and Allergies Home Medications Medication Instructions Recorded Confirmed Type Pantoprazole Sodium [Protonix] 40 mg PO BID 10/31/17 07/20/19 History Pravastatin Sodium [Pravachol] 30 mg PO HS 10/31/17 07/20/19 History DULoxetine HCL [Cymbalta] 60 mg PO HS 06/14/18 07/20/19 History Levothyroxine Sodium [Synthroid] 125 mcg PO QAM 06/14/18 07/20/19 History Ascorbic Acid [Vitamin C] 500 mg PO DAILY 07/20/19 07/20/19 History Celecoxib [CeleBREX] 200 mg PO DAILY PRN 07/20/19 07/20/19 History Cholecalciferol [Vitamin D3 (25 1,000 unit PO DAILY 07/20/19 07/20/19 History Mcg = 1000 Iu)] Cyclobenzaprine [Flexeril] 10 mg PO HS PRN 07/20/19 07/20/19 History Hydrocodone/Acetaminophen [[place] 1 tab PO BID 07/20/19 07/20/19 History 5-325] Inulin/Chromium Picolinate [Fiber 2 tab PO DAILY 07/20/19 07/20/19 History Gummies Chew] Irbesartan/Hydrochlorothiazide 1 tab PO DAILY 07/20/19 07/20/19 History [Irbesartan-Hctz 300-12.5 mg Tb] Multivitamins, Thera [Multivitamin 1 tab PO DAILY 07/20/19 07/20/19 History (formulary)] Pregabalin 100 mg PO TID 07/20/19 07/20/19 History Zolpidem [Ambien] 10 mg PO HS 07/20/19 07/20/19 History Clopidogrel Bisulfate [Plavix] 75 mg PO DAILY #30 tab 07/21/19 Rx Allergies Allergy/AdvReac Type Severity Reaction Status Date / Time prednisone Allergy Unknown Verified 07/20/19 12:08 propoxyphene napsylate Allergy Swelling Verified 07/20/19 12:08 [From Darcet-N 100] adhesive tape AdvReac Itching, Verified 07/20/19 12:08 and takes her skin off Physical Exam Vitals: Vital Signs Temp Pulse Pulse Resp BP BP Pulse Ox 07/21/19 07:41 98.1 F 76 15 118/71 95 07/21/19 04:00 98.7 F 89 16 123/68 93 L 07/21/19 00:00 97.3 F L 74 17 114/69 98 07/20/19 20:00 96.6 F L 70 16 146/81 97 07/20/19 19:48 96.6 F L 70 16 146/81 97 07/20/19 18:00 98 F 71 19 148/88 98 07/20/19 17:00 98 F 92 15 141/89 97 07/20/19 16:00 77 18 120/66 98 07/20/19 15:00 68 14 130/79 100 07/20/19 14:00 79 18 137/79 98 07/20/19 12:00 73 12 139/91 100 07/20/19 11:00 70 10 L 148/95 99 07/20/19 10:00 70 15 144/86 98 Intake and Output 07/20/19 07/21/19 07/21/19 22:59 06:59 14:59 Intake Total 1000 Balance 1000 Intake: IV 1000 Sodium Chloride 0.9% 1, 1000 000 ml @ 100 mls/hr IV . Q10H [facility] Rx#:[id number] Other: Voiding Method Toilet Toilet # Voids 1 1 Weight 81.647 kg Results CBC & Chem 7: 07/20/19 09:55 07/20/19 09:55 Labs: Abnormal Lab Results - Last 24 Hours (Table) 07/20/19 07/20/19 07/20/19 Range/Units 09:55 09:55 11:12 Sodium 136 L (137-145) mmol/L BUN 26 H (7-17) mg/dL Glucose 110 H (74-99) mg/dL HDL Cholesterol 39 L (40-60) mg/dL Urine Opiates Screen Detected H (NotDetected) Thrombosis Risk Factor Assmnt - Choose All That Apply Each Factor Represents 1 point: Age 41-60 years Thrombosis Risk Factor Assessment Total Risk Factor Score: 1 Thrombosis Risk Factor Assessment Level: Low Risk
--- NOTE | 2019-07-21 14:29 | P.DS ---
Providers Date of admission: 07/20/19 11:49 Expected date of discharge: 07/21/19 Attending physician: Zay Kinsey Consults: 07/20/19 12:02 Consult Physician Urgent Consulting Provider: Ella Mcdaniels Consult Reason/Comments: near syncope, dizziness, paresthesia Do you want consulting provider notified?: Yes Primary care physician: Britton [facility] Course: Chief Complaint: Left arm numb History of presenting complaint: This is a very pleasant 58-year-old patient of Dr. Rangel. Chronic stable medical conditions include GERD, hypertension, osteoarthritis, hypothyroid. Patient's had a TIA in the past and had been followed for Dr. Morales. Patient last night had developed significant headache at the back part of the head. Was doing well in the morning. Had gone to see her family doctor. There she experienced a burning sensation behind the left ear left arm and a bit numb and she nearly fell off from the examining table. She was sent in here. No change in speech or swallowing. There may have been some numbness on the left part of the mouth. She was seen by neurologist yesterday evening. Initial computed tomography scan of the brain and CT angiogram was negative. MRI of the brain was negative. No residual symptoms. Follow up outpatient with neurology. Discussed with patient and . Consultation: Dr. Rae Recinos from neurology Physical examination: VITAL SIGNS: 97.9, 70, 16, 133/82, 97% on room air GENERAL: BMI 30.4, laying in bed, comfortable. EYES: Pupils equal. Conjunctiva normal. HEENT: External appearance of nose and ears normal, oral cavity grossly normal. NECK: JVD not raised; masses not palpable. HEART: First and second heart sounds are normal; no edema. LUNGS: Respiratory rate normal; clear to auscultation. ABDOMEN: Soft, nontender, liver spleen not palpable, no masses palpable. PSYCH: Alert and oriented x3; mood and affect normal. NEUROLOGICAL: Cranial nerves grossly intact; no facial asymmetry, power and sensation grossly intact. INVESTIGATIONS, reviewed in the clinical context: White count 5.6 hemoglobin 13.3 platelets 183 potassium 3.9 creatinine 0.92. Troponin I negative UA negative Urine drug screen positive for opiates Computed tomography scan brain-acute CT angiogram of the brain-no significant EKG tracing personally reviewed by me-normal sinus rhythm Chest x-ray film personally reviewed by me-negative MRI brain-no acute Assessment: - TIA probable -Essential hypertension -GERD -Hypothyroid -Obesity BMI 30.4 Disposition: Home Patient Condition at Discharge: Stable Plan - Discharge Summary Discharge Rx Participant: Yes New Discharge Prescriptions: New Clopidogrel Bisulfate [Plavix] 75 mg PO DAILY #30 tab Continue Pravastatin Sodium [Pravachol] 30 mg PO HS Pantoprazole Sodium [Protonix] 40 mg PO BID DULoxetine HCL [Cymbalta] 60 mg PO HS Levothyroxine Sodium [Synthroid] 125 mcg PO QAM Zolpidem [Ambien] 10 mg PO HS Pregabalin 100 mg PO TID Hydrocodone/Acetaminophen [[place] 5-325] 1 tab PO BID Cyclobenzaprine [Flexeril] 10 mg PO HS PRN PRN Reason: Muscle Spasm Celecoxib [CeleBREX] 200 mg PO DAILY PRN PRN Reason: Pain Irbesartan/Hydrochlorothiazide [Irbesartan-Hctz 300-12.5 mg Tb] 1 tab PO DAILY Multivitamins, Thera [Multivitamin (formulary)] 1 tab PO DAILY Cholecalciferol [Vitamin D3 (25 Mcg = 1000 Iu)] 1,000 unit PO DAILY Ascorbic Acid [Vitamin C] 500 mg PO DAILY Inulin/Chromium Picolinate [Fiber Gummies Chew] 2 tab PO DAILY Discontinued Aspirin 81 mg PO DAILY Ibuprofen [Motrin] 800 mg PO Q8H PRN PRN Reason: Pain Discharge Medication List Pantoprazole Sodium [Protonix] 40 mg PO BID 10/31/17 [History] Pravastatin Sodium [Pravachol] 30 mg PO HS 10/31/17 [History] DULoxetine HCL [Cymbalta] 60 mg PO HS 06/14/18 [History] Levothyroxine Sodium [Synthroid] 125 mcg PO QAM 06/14/18 [History] Ascorbic Acid [Vitamin C] 500 mg PO DAILY 07/20/19 [History] Celecoxib [CeleBREX] 200 mg PO DAILY PRN 07/20/19 [History] Cholecalciferol [Vitamin D3 (25 Mcg = 1000 Iu)] 1,000 unit PO DAILY 07/20/19 [History] Cyclobenzaprine [Flexeril] 10 mg PO HS PRN 07/20/19 [History] Hydrocodone/Acetaminophen [[place] 5-325] 1 tab PO BID 07/20/19 [History] Inulin/Chromium Picolinate [Fiber Gummies Chew] 2 tab PO DAILY 07/20/19 [History] Irbesartan/Hydrochlorothiazide [Irbesartan-Hctz 300-12.5 mg Tb] 1 tab PO DAILY 07/20/19 [History] Multivitamins, Thera [Multivitamin (formulary)] 1 tab PO DAILY 07/20/19 [History] Pregabalin 100 mg PO TID 07/20/19 [History] Zolpidem [Ambien] 10 mg PO HS 07/20/19 [History] Clopidogrel Bisulfate [Plavix] 75 mg PO DAILY #30 tab 07/21/19 [Rx] Follow up Appointment(s)/Referral(s): Britton Rangel DO [Primary Care Provider] - 1-2 days Lauro Garza MD [STAFF PHYSICIAN] - 3 Days
[2019-07-22] MEDS ORDERED: MULTIVITAMINS, THERA 1 EACH TAB PO SCH (09:00)
== END 2019-07-21 15:11 | disposition home or self-care (01) ==
LOC: EC 09:24 → 3SCARD 11:49
PROVIDERS: ADMIT Hospitalist; ATTEND Hospitalist
DX: R42 Dizziness and giddiness (principal); I10 Essential (primary) hypertension; K21.9 Gastro-esophageal reflux disease without esophagitis; E03.9 Hypothyroidism, unspecified; E66.9 Obesity, unspecified; Z68.30 Body mass index [BMI] 30.0-30.9, adult; M19.90 Unspecified osteoarthritis, unspecified site; Z86.73 Personal history of transient ischemic attack (TIA), and cerebral infarction without residual deficits; Z79.899 Other long term (current) drug therapy; E78.5 Hyperlipidemia, unspecified; Z79.890 Hormone replacement therapy; Z79.82 Long term (current) use of aspirin; M54.9 Dorsalgia, unspecified; G89.29 Other chronic pain; Z79.1 Long term (current) use of non-steroidal anti-inflammatories (NSAID); Z79.891 Long term (current) use of opiate analgesic; Z88.8 Allergy status to other drugs, medicaments and biological substances; Z91.048 Other nonmedicinal substance allergy status; Z84.89 Family history of other specified conditions
CPT/HCPCS: 96372; 96360; 96361; 99285; 36415; 93005; 97161; 80061; 80053; 84484; 85025; 85610; 81003; 80306; 71046; 70496; 70450; 70498; 70551; G0378 ×2; J1650; Q9967

== ENCOUNTER → 2019-10-11 | Outpatient (CLI) | payer OTHER ==
--- NOTE | 2019-10-17 11:31 | ECHOF ---
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 MEASUREMENTS -------- HEIGHT: 162.6 cm WEIGHT: 79.4 kg BP: 140/85 RVIDd: 3.0 cm (< 3.3) IVSd: 1.1 cm (0.6 - 1.1) LVIDd: 3.7 cm (3.9 - 5.3) LVPWd: 1.1 cm (0.6 - 1.1) IVSs: 1.6 cm LVIDs: 2.6 cm LVPWs: 1.4 cm LA Diam: 3.3 cm (2.7 - 3.8) Ao Diam: 2.8 cm (2.0 - 3.7) AV Cusp: 1.6 cm (1.5 - 2.6) MV EXCURSION: 12.613 mm (> 18.000) MV EF SLOPE: 83 mm/s (70 - 150) EPSS: 0.3 cm MV E Tio: 0.95 m/s MV DecT: 161 ms MV A Tio: 0.87 m/s MV E/A Ratio: 1.09 RAP: 5.00 mmHg RVSP: 33.10 mmHg FINDINGS -------- Sinus rhythm. This was a technically adequate study. The left ventricular size is normal. There is borderline concentric left ventricular hypertrophy. Overall left ventricular systolic function is normal with, an EF between 60 - 65 %. The right ventricle is normal in size. The left atrial size is normal. The right atrium is normal in size. Interatrial and interventricular septum intact. The aortic valve is trileaflet and appears structurally normal. The mitral valve is normal. Mild tricuspid regurgitation present. Right ventricular systolic pressure is normal at < 35 mmHg. Trace/mild (physiologic) pulmonic regurgitation. The aortic root size is normal. Normal inferior vena cava with normal inspiratory collapse consistent with estimated right atrial pre ssure of 5 mmHg. There is no pericardial effusion. CONCLUSIONS -------- 1. Sinus rhythm. 2. This was a technically adequate study. 3. The left ventricular size is normal. 4. There is borderline concentric left ventricular hypertrophy. 5. Overall left ventricular systolic function is normal with, an EF between 60 - 65 %. 6. The right ventricle is normal in size. 7. The left atrial size is normal. 8. The right atrium is normal in size. 9. Interatrial and interventricular septum intact. 10. The aortic valve is trileaflet and appears structurally normal. 11. The mitral valve is normal. 12. Mild tricuspid regurgitation present. 13. Right ventricular systolic pressure is normal at < 35 mmHg. 14. Trace/mild (physiologic) pulmonic regurgitation. 15. The aortic root size is normal. 16. Normal inferior vena cava with normal inspiratory collapse consistent with estimated right atrial pressure of 5 mmHg. 17. There is no pericardial effusion. MANAGER OF CORPORATE: PRERNA Arcos
== END | disposition home or self-care (01) ==
LOC: RADECHMAIN 10:23
PROVIDERS: ATTEND Psychiatry & Neurology Neurology
DX: I51.7 Cardiomegaly (principal); I07.1 Rheumatic tricuspid insufficiency; I37.1 Nonrheumatic pulmonary valve insufficiency; G45.9 Transient cerebral ischemic attack, unspecified; E72.12 Methylenetetrahydrofolate reductase deficiency
CPT/HCPCS: 93306

== ENCOUNTER → 2019-11-02 | Outpatient (CLI) | payer OTHER | END | disposition home or self-care (01) | LOC: LABWHC1 10:03 | PROVIDERS: ATTEND Internal Medicine Interventional Cardiology | DX: Z11.59 Encounter for screening for other viral diseases (principal) ==

== ENCOUNTER → 2019-11-05 | Day surgery (SDC) | payer OTHER ==
[2019-11-02 09:02] VITALS: BMI 30.9
[~2019-11-05] MED LIST changes: -DEXAMETHASONE SOD PHOSPHATE 10 MG/ML 1 ML VIAL IV ONE; -EPINEPHrine (PF) 1 ML in SODIUM CHLORIDE 0.9% IRRIGATIO 3,000 ML IRRIGATION ONE; -HYDROcodone/APAP 7.5-325MG 1 EACH TAB PO ONE; -LACTATED RINGERS 1,000 ML IV ONE; -LIDOCAINE 1% 20 ML VIAL (10MG/ML) FOR IV START INTRADERMA ONE; -LIDOCAINE 1% INJ 10MG/ML (20 ML MDV) ONE; -MIDAZOLAM 2 MG/2 ML VIAL IV ONE; -MIDAZOLAM 2 MG/2 ML VIAL ONE; -ONDANSETRON 4 MG/2 ML VIAL IVP ONE; -PHENYLEPHRINE-0.9% NACL SYG 1 MG/10 ML SYRINGE ONE; -PROPOFOL 10 MG/ML 20 ML VIAL IV ONE; -ROPIVACAINE 5 MG/ML 30 ML VIAL ONE; +SODIUM CHLORIDE 0.9% 1,000 ML IV SCH; -SUCCINYLCHOLINE CHLORIDE 100 MG/5 ML SYR IV ONE; -fentaNYL (PF) 50 MCG/ML 2 ML AMP ONE
[2019-11-05 08:18] VITALS: PULSE 73; RESP 18; TEMP 98.7
[2019-11-05 10:59] VITALS: BP 133/74
--- NOTE | 2019-11-05 19:06 | P.PCN ---
Preoperative Diagnosis: Diagnosis Recurrent loss of consciousness/syncope Baseline twelve-lead ECG shows sinus rhythm normal NV narrow QRS normal ST segments Tilt table test per protocol Baseline blood pressure 130/80 mmHg Baseline heart rate 71 beats a minute Patient was tilted upright at an angle of 70 per protocol After 8-10 minutes there was a sudden drop in blood pressure.) Pressure recorded was 88/62 mmHg. Minimal increase in heart rate She became sweaty and weak and felt as if she was or blackout When she was laid supine she felt a lot better and her blood pressure slowly normalized Impression neurocardiogenic syncope Normal twelve-lead EKG
== END ==
LOC: CATHEP 07:46
PROVIDERS: ATTEND Internal Medicine Clinical Cardiac Electrophysiology
DX: R55 Syncope and collapse (principal); R07.89 Other chest pain; I10 Essential (primary) hypertension; E78.5 Hyperlipidemia, unspecified; E78.00 Pure hypercholesterolemia, unspecified; Z79.890 Hormone replacement therapy; Z79.82 Long term (current) use of aspirin; Z79.899 Other long term (current) drug therapy; Z88.8 Allergy status to other drugs, medicaments and biological substances; Z82.49 Family history of ischemic heart disease and other diseases of the circulatory system
CPT/HCPCS: 93660

== ENCOUNTER → 2020-06-23 | Outpatient (CLI) | payer OTHER ==
--- NOTE | 2020-06-24 09:55 | MM ---
Reason for exam: screening (asymptomatic). Last mammogram was performed 1 year and 5 months ago. History: Patient is postmenopausal and has history of other cancer at age 48. Family history of breast cancer in maternal grandmother. Benign ultrasound-guided cyst aspiration of the left breast, January 02, 2003. Cyst aspiration of the left breast. Took hormonal contraceptives for 5 years beginning at age 20. Taking other hormone. Physical Findings: A clinical breast exam by your physician is recommended on an annual basis and results should be correlated with mammographic findings. MG Screening Mammo w CAD Bilateral CC and MLO view(s) were taken. Prior study comparison: January 31, 2019, bilateral MG screening mammo w CAD. June 07, 2017, bilateral MG 3d screening mammo w/cad. The breast tissue is heterogeneously dense. This may lower the sensitivity of mammography. Previous mammotome biopsy in the left breast. No significant changes when compared with prior studies. ASSESSMENT: Benign, BI-RAD 2 RECOMMENDATION: Routine screening mammogram of both breasts in 1 year.
== END | disposition home or self-care (01) ==
LOC: RADMAMWWP 07:40
PROVIDERS: ATTEND Family Medicine
DX: Z12.31 Encounter for screening mammogram for malignant neoplasm of breast (principal)
CPT/HCPCS: 77067

== ENCOUNTER → 2020-07-09 | Outpatient (CLI) | payer OTHER ==
--- NOTE | 2020-07-09 11:00 | P.ARTDOP ---
Arterial Doppler LOWER EXTREMITY ARTERIAL DOPPLER: DATE OF SERVICE: 07/09/2020 Reason for study: Calf pain with walking. Doppler waveforms: Multiphasic bilaterally throughout. Toe waveforms mildly blunted Pulse volume recording: []. Pressure gradients: None. Ankle-brachial indices: Greater than 1 bilaterally. Toe brachial indices: 0.7 on the right, 0.73 on the left Impression: Normal study.
--- NOTE | 2020-07-09 11:01 | P.ARTDOP ---
Arterial Doppler Upper extremity arterial Doppler study: Reason for study: Suspected neuropathy Date of study: 07/09/2020: Findings: Doppler waveforms are multiphasic bilaterally throughout. There are no significant right to left or segmental pressure gradients. Impression: Normal study
== END | disposition home or self-care (01) ==
LOC: RADUSWWP 06:56
PROVIDERS: ATTEND Podiatrist Foot & Ankle Surgery
DX: I73.9 Peripheral vascular disease, unspecified (principal)
CPT/HCPCS: 93922

== ENCOUNTER → 2020-08-22 | Outpatient (CLI) | payer OTHER ==
--- NOTE | 2020-08-22 15:11 | XR ---
EXAMINATION TYPE: XR ribs RT w pa chest xray DATE OF EXAM: 08/22/2020 CLINICAL HISTORY: Pain, Fall Four views of the ribs fail demonstrate evidence for displaced rib fracture or secondary sign of rib fracture. Visualized lungs are clear. No evidence for pneumothorax. IMPRESSION: 1. No displaced rib fractures seen. ICD 10 NO FRACTURE, INITIAL EVALUATION
== END | disposition home or self-care (01) ==
LOC: RADXRMAIN 14:44
PROVIDERS: ATTEND Nurse Practitioner Family
DX: S29.9XXA Unspecified injury of thorax, initial encounter (principal)

== ENCOUNTER → 2020-09-24 | Outpatient (CLI) | payer OTHER ==
--- NOTE | 2020-09-24 10:08 | XR ---
EXAMINATION TYPE: XR KUB DATE OF EXAM: 09/24/2020 9:39 AM CLINICAL HISTORY: Right flank pain since Tuesday. TECHNIQUE: Two supine KUB images of the abdomen are obtained. COMPARISON: None. FINDINGS: Scattered gas is seen in non-distended small bowel loops. Gas and fecal material is seen in non-distended colon. Postsurgical changes L4-L5 level. Moderate superior joint space loss left hip. Cholecystectomy clips. Linear 5 mm density left pelvis of uncertain etiology possible displaced clip . Lateral to right femoral head is 9 mm ossific round density could reflect intra-articular loose bod y. Visualized lung bases are clear. IMPRESSION: Overall nonobstructive bowel gas pattern. No definite nephrolithiasis.
== END | disposition home or self-care (01) ==
LOC: RADXRMAIN 09:19
PROVIDERS: ATTEND Family Medicine
DX: N20.0 Calculus of kidney (principal)
CPT/HCPCS: 74018

== ENCOUNTER → 2021-03-04 | Outpatient (CLI) | payer MEDICARE, OTHER ==
[2021-03-04 18:59] LABS: T4, Free (Free Thyroxine) 1.6 ng/dL (0.800-1.800)
== END | disposition home or self-care (01) ==
LOC: LABWHC1 08:11
PROVIDERS: ATTEND Internal Medicine
DX: E03.9 Hypothyroidism, unspecified (principal)
CPT/HCPCS: 36415; 84439; 84443

== ENCOUNTER 2021-03-21 16:29 | Emergency (ER) | payer OTHER, MEDICARE ==
[2021-03-21 17:37] VITALS: BP 164/90; PULSE 70; RESP 18; TEMP 97.6
[2021-03-21] MEDS ORDERED: MORPHINE SULFATE 4 MG/ML SYRINGE IM STA (17:48)
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
== END 2021-03-21 20:22 | disposition home or self-care (01) ==
LOC: EC 16:29
DX: S16.1XXA Strain of muscle, fascia and tendon at neck level, initial encounter (principal); S39.012A Strain of muscle, fascia and tendon of lower back, initial encounter; K21.9 Gastro-esophageal reflux disease without esophagitis; E78.5 Hyperlipidemia, unspecified; I10 Essential (primary) hypertension; Z86.73 Personal history of transient ischemic attack (TIA), and cerebral infarction without residual deficits; V49.9XXA Car occupant (driver) (passenger) injured in unspecified traffic accident, initial encounter
CPT/HCPCS: 72125; 72131; 70450; 99284; 96372; J2270

== ENCOUNTER → 2022-05-05 | Outpatient (CLI) | payer MEDICARE, OTHER ==
--- NOTE | 2022-05-05 12:12 | BD ---
EXAMINATION TYPE: Axial Bone Density DATE OF EXAM: 05/05/2022 COMPARISON: NONE CLINICAL HISTORY: 61 years year old Female. ICD-10 CODE: N951 POST MELBA SYMP Height: 5 FT 4 IN Weight: 214 FRAX RISK QUESTIONS: Alcohol (3 or more units per day): NO Family History (Parent hip fracture): NO Glucocorticoids (More than 3mos): YES (Ex: prednisone, prednisolone, methylprednisolone, dexamethasone, and hydrocortisone). History of Fracture in Adulthood: YES Secondary Osteoporosis: 1. Type 1 Diabetes: NO 2. Hyperthyroidism: NO 3. Menopause before 45: YES 4. Malnutrition: NO 5. Chronic liver disease: NO Rheumatoid Arthritis: YES Current Tobacco Use: NO RISK FACTORS HISTORY OF: Surgery to Spine/Hip(right/left)/Wrist (right/left): LUMBAR SCREWS AND RODS When: APPROX 15 YEARS AGO AND SIX YEARS AGO Family History of Osteoporosis: NO Active: NO Diet low in dairy products/other sources of calcium: NO Postmenopausal woman: YES Take estrogen and/or progesterone medications: NO Lost more than 2 inches in height since high school: NO Frequent falls: YES Poor Health: FAIR Hyperparathyroidism: NO Adrenal Insufficiency: NO MEDICATIONS: Additional Medications: NERVE PAIN MEDS, CYMBALTA, LYRICA, LOSARTAN, OMEPRAZOLE SYNTHROID FOR 15 YEA RS , Additional History: EXAM MEASUREMENTS: Bone mineral density about the R hip (g/cm2): 0.848 Bone mineral density about the L hip (g/cm2): 0.779 T Score values are as follows: -----R Neck: -1.4 -----L Neck: -1.9 -----R Total: -1.0 -----L Total: -1.1 Bone mineral density has: DECREASED -4.9 % since study of: 2018 Bone mineral density about the L Wrist (g/cm2): 0.696 T Score values are as follows: -----Dist. R+U: 0.3 -----Prox. R+U: 0.5 -----Radius total: 0.4 FIRST TIME WRIST HAS BEEN DONE FRAX%s: The graph provided illustrates a 10.6 % chance for a major osteoporotic fx and a 1.3 % chance for the hips probability for fx in 10 years time. IMPRESSION: Osteopenia (T Score between -2.5 and -1). There is slightly increased risk of fracture and the patient may be considered for treatment. Re-Screen 2-5 years. NOTE: T-SCORE=SD OF THE YOUNG ADULT MEAN.
--- NOTE | 2022-05-06 08:43 | MM ---
Reason for Exam: Screening (asymptomatic). Last mammogram was performed 1 year(s) and 11 month(s) ago. Patient History: Menarche at age 14. First Full-Term at age 23. Postmenopausal. Other cancer, age 48. Hormonal Contraceptives for 5 years from age 20 until age 25. Cyst Aspiration on the Left side. 01/02/2003, Benign Ultrasound-Guided Cyst Aspiration on the left side. Maternal grandmother had breast cancer. Risk Values: [place] 5 year model risk: 1.2%. NCI Lifetime model risk: 6.7%. Prior Study Comparison: 12/24/2014 Bilateral Screening Mammogram, [facility]. 04/30/2016 Bilateral Screening Mammogram, [facility]. 06/07/2017 Bilateral Screening Mammogram, [facility]. 01/31/2019 Bilateral Screening Mammogram, [facility]. 06/23/2020 Bilateral Screening Mammogram, [facility]. Tissue Density: The breast tissue is heterogeneously dense. This may lower the sensitivity of mammography. Findings: Analyzed By CAD. There is no suspicious group of microcalcifications or new suspicious mass in either breast. Overall Assessment: Benign, BI-RAD 2 Management: Screening Mammogram of both breasts in 1 year. A clinical breast exam by your physician is recommended on an annual basis and results should be correlated with mammographic findings. Electronically signed and approved by: Bill Santana M.D.
== END | disposition home or self-care (01) ==
LOC: RADMAMWWP 06:48
PROVIDERS: ATTEND Family Medicine
DX: Z12.31 Encounter for screening mammogram for malignant neoplasm of breast (principal); M85.89 Other specified disorders of bone density and structure, multiple sites; Z78.0 Asymptomatic menopausal state; Z80.3 Family history of malignant neoplasm of breast
CPT/HCPCS: 77063; 77067; 77080

== ENCOUNTER → 2022-09-23 | Outpatient (CLI) | payer MEDICARE, OTHER ==
[2022-09-23 19:34] LABS: Basophils # (A) 0.05 X 10*3/uL (0.00-0.10); Basophils % (A) 0.6 %; Eosinophils # (A) 0.18 X 10*3/uL (0.04-0.35); Eosinophils % (A) 2.3 %; HCT 44.8 % (37.2-46.3); HGB 14.7 g/dL (12.0-15.0); Immature Grans, Automated 0.4 %; Lymphocytes # (A) 2.54 X 10*3/uL (0.90-5.00); Lymphocytes % (A) 32.3 %; MCH 29.3 pg (27.0-32.0); MCHC 32.8 g/dL (32.0-37.0); MCV 89.4 fL (80.0-97.0); Mean Platelet Volume 12.3 fL (9.5-12.2); Monocytes # (A) 0.76 X 10*3/uL (0.20-1.00); Monocytes % (A) 9.7 %; NRBC Per 100 WBC 0 /100 WBCS (0.0-0.0); Neutrophils # (A) 4.31 X 10*3/uL (1.80-7.70); Neutrophils % (A) 54.7 %; Platelet Count 260 X 10*3/uL (140-440); RBC 5.01 X 10*6/uL (4.10-5.20); WBC 7.87 X 10*3/uL (4.50-10.00)
== END | disposition home or self-care (01) ==
LOC: LABPAT 08:05
PROVIDERS: ATTEND Obstetrics & Gynecology
DX: Z01.812 Encounter for preprocedural laboratory examination (principal); R94.31 Abnormal electrocardiogram [ECG] [EKG]
CPT/HCPCS: 85025; 93005

== ENCOUNTER 2022-11-18 06:00 | Day surgery (SDC) | payer MEDICARE, OTHER ==
[2022-11-18] MEDS ORDERED: LACTATED RINGERS 1,000 ML IV SCH (06:23)
[2022-11-18 07:03] LABS: Glucose,Whole Blood 103 mg/dL (70-110)
[2022-11-18] MEDS ORDERED: MIDAZOLAM 2 MG/2 ML VIAL ONE (07:09)
[2022-11-18] MEDS ORDERED: LIDOCAINE 2% INJ 20 MG/ML (2 ML VIAL) ONE (07:09)
[2022-11-18] MEDS ORDERED: PROPOFOL 10 MG/ML 20 ML VIAL IV ONE (07:09)
[2022-11-18] MEDS ORDERED: fentaNYL (PF) 50 MCG/ML 2 ML AMP ONE (07:09)
[2022-11-18 07:13] VITALS: RESP 16; TEMP 97
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
--- NOTE | 2022-11-18 07:28 | P.PCN ---
Date of Procedure: 11/18/22 Description of Procedure: PREOPERATIVE DIAGNOSIS: Gastroesophageal reflux disease. POSTOPERATIVE DIAGNOSIS: Gastroesophageal reflux disease. Morbid obesity. Gastritis. Diaphragmatic hiatal hernia Gastric polyps OPERATION: Esophagogastroduodenoscopy with biopsies along antrum and duodenum SURGEON: Nithya Barfield MD ANESTHESIA: MAC. INDICATIONS: The patient is a 62-year-old female who presents with reflux disease. Benefits and risks of the procedure were described. Informed consent was obtained. DESCRIPTION: The patient was brought into the endoscopy suite and laid in the left lateral decubitus position. An Olympus gastroscope was passed along the posterior oropharynx down to the distal esophagus where the squamocolumnar junction was encountered at 33 cm from the incisors. The stomach was entered and no bile reflux was found. Additional findings are listed below. Biopsies with cold for ceps were obtained of the antrum. The first through third portion of the duodenum was examined. Retroflexion of the scope confirmed Hill grade 4 lower esophageal valve. The squamocolumnar junction demonstrated LA grade B erosive esophagitis. The stomach was desufflated. The patient tolerated the procedure well. FINDINGS: Squamocolumnar junction 33 cm from the incisors. Diaphragmatic hiatus at 40 cm. Hiatal hernia, 7 cm Hill grade 4 lower esophageal valve. LA grade B erosive esophagitis. Biopsies obtained of the duodenum. Gastric polyps, 3-mm multiple Chronic gastritis with biopsies obtained. RECOMMENDATIONS: Recommend repair of hiatal hernia Recommend esophagram Plan - Discharge Summary Discharge Rx Participant: No New Discharge Prescriptions: Continue Pravastatin Sodium [Pravachol] 30 mg PO HS Pantoprazole Sodium [Protonix] 40 mg PO BID DULoxetine HCL [Cymbalta] 60 mg PO BID Zolpidem [Ambien] 10 mg PO HS Pregabalin [Lyrica] 150 mg PO TID Aspirin 81 mg PO DAILY amLODIPine [Norvasc] 5 mg PO HS Cevimeline [Evoxac] 30 mg PO TID Ibuprofen [Motrin] 600 mg PO Q6HR PRN #30 tab PRN Reason: Pain Losartan [Cozaar] 50 mg PO QAM Levothyroxine Sodium [Synthroid] 137 mcg PO QAM metFORMIN HCL [Glucophage] 500 mg PO QAM Discharge Medication List Pantoprazole Sodium [Protonix] 40 mg PO BID 10/31/17 [History] Pravastatin Sodium [Pravachol] 30 mg PO HS 10/31/17 [History] DULoxetine HCL [Cymbalta] 60 mg PO BID 06/14/18 [History] Zolpidem [Ambien] 10 mg PO HS 07/20/19 [History] Aspirin 81 mg PO DAILY 07/02/22 [History] Cevimeline [Evoxac] 30 mg PO TID 07/02/22 [History] Levothyroxine Sodium [Synthroid] 137 mcg PO QAM 07/02/22 [History] Pregabalin [Lyrica] 150 mg PO TID 07/02/22 [History] amLODIPine [Norvasc] 5 mg PO HS 07/02/22 [History] Ibuprofen [Motrin] 600 mg PO Q6HR PRN #30 tab 09/30/22 [Rx] Losartan [Cozaar] 50 mg PO QAM 09/30/22 [History] metFORMIN HCL [Glucophage] 500 mg PO QAM 11/15/22 [History] Follow up Appointment(s)/Referral(s): Nithya Barfield MD [STAFF PHYSICIAN] - 12/14/22 3:15 pm Patient Instructions/Handouts: Hiatal Hernia (DC) Discharge Disposition: HOME SELF-CARE
[2022-11-18 07:39] VITALS: BP 115/77; PULSE 95
== END 2022-11-18 08:12 | disposition home or self-care (01) ==
LOC: ORWHC2ENDO 06:00
PROVIDERS: ATTEND Surgery Plastic and Reconstructive Surgery
DX: K29.50 Unspecified chronic gastritis without bleeding (principal); K21.00 Gastro-esophageal reflux disease with esophagitis, without bleeding; K31.89 Other diseases of stomach and duodenum; K44.9 Diaphragmatic hernia without obstruction or gangrene; K31.7 Polyp of stomach and duodenum; Z79.1 Long term (current) use of non-steroidal anti-inflammatories (NSAID); Z79.82 Long term (current) use of aspirin; Z79.84 Long term (current) use of oral hypoglycemic drugs; Z79.899 Other long term (current) drug therapy; I10 Essential (primary) hypertension; E11.41 Type 2 diabetes mellitus with diabetic mononeuropathy; E78.5 Hyperlipidemia, unspecified; Z86.73 Personal history of transient ischemic attack (TIA), and cerebral infarction without residual deficits; Z85.850 Personal history of malignant neoplasm of thyroid; Z87.11 Personal history of peptic ulcer disease; Z90.49 Acquired absence of other specified parts of digestive tract; Z79.890 Hormone replacement therapy; Z91.048 Other nonmedicinal substance allergy status; Z88.8 Allergy status to other drugs, medicaments and biological substances; Z88.6 Allergy status to analgesic agent
CPT/HCPCS: 88305; 43239; J2250; J3010; J2704; J2001

== ENCOUNTER → 2023-01-03 | Outpatient (CLI) | payer MEDICARE, OTHER ==
--- NOTE | 2023-01-03 12:15 | FL ---
EXAMINATION TYPE: FL barium swallow DATE OF EXAM: 01/03/2023 11:30 AM COMPARISON: 07/20/2019. CLINICAL INDICATION:Female, 62 years old with history of K44.9 DIAPHRAGMATIC HERNIA WITHOUT; PHH, TECHNIQUE: The procedure was explained and patient history elicited. All patient questions were ans wered prior to start of procedure. Multiple spot fluoroscopic images of the esophagus were obtained a fter the oral ingestion of effervescent crystals and liquid barium as the contrast agent. Fluoroscopic time: 26 seconds Fluoroscopic images: 0 Radiographs taken: 54 DAP: 1910.21 cGycm2 FINDINGS: The esophagus demonstrates normal primary and secondary peristalsis. The esophageal mucosa is smooth without evidence of focal stricture, ulceration, or abnormal outpouching. No gastroesophageal reflu x disease was identified. Tertiary contractions are present. IMPRESSION: Esophageal dysmotility worse when lying down.
== END | disposition home or self-care (01) ==
LOC: RADUSWWP 10:36
PROVIDERS: ATTEND Surgery Plastic and Reconstructive Surgery
DX: K22.4 Dyskinesia of esophagus (principal); K44.9 Diaphragmatic hernia without obstruction or gangrene
CPT/HCPCS: 74220

== ENCOUNTER → 2023-04-04 | Outpatient (CLI) | payer MEDICARE, OTHER ==
[2023-04-04 12:38] LABS: HGB 14.4 d/dL (12.0-15.0); MCH 28.9 pg (27.0-32.0); MCHC 34.3 d/dL (32.0-37.0); MCV 84.3 FL (80.0-97.0); NRBC Per 100 WBC 0 X 10*3/uL (0.00-0.01); Platelet Count 228 X 10*3/uL (140-440); RBC 4.98 X 10*6/uL (4.10-5.20); RDW 13.8 % (11.5-14.5); WBC 6.19 X 10*3/uL (4.50-10.00)
== END | disposition home or self-care (01) ==
LOC: LABPAT 07:21
PROVIDERS: ATTEND Surgery Plastic and Reconstructive Surgery
DX: Z01.818 Encounter for other preprocedural examination (principal)
CPT/HCPCS: 36415; 85027; 86850; 86900; 86901; 93005

== ENCOUNTER 2023-04-07 09:59 | Day surgery (SDC) | payer MEDICARE, OTHER ==
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
[~2023-04-07 09:59] MED LIST changes: +ACETAMINOPHEN TAB 500 MG TAB PO PRN; +DEXAMETHASONE SOD PHOSPHATE 4 MG/ML 1 ML VIAL IVP STA; +HEPARIN SODIUM,PORCINE/PF 5,000 UNIT/0.5 ML SYRINGE SQ PRN; +ONDANSETRON 4 MG/2 ML VIAL IVP PRN; +SCOPOLAMINE 1 MG/72 HR PATCH TRANSDERM STA; -SODIUM CHLORIDE 0.9% 1,000 ML IV SCH; +fentaNYL (PF) 50 MCG/ML 2 ML AMP IV PRN
[2023-04-07] MEDS: LACTATED RINGERS 1,000 ML IV SCH (10:39)
[2023-04-07] MEDS ORDERED: LIDOCAINE 1% (10MG/ML) FOR IV START INTRADERMA ONE (10:39)
[2023-04-07 10:42] LABS: Glucose,Whole Blood 84 mg/dL (70-110)
[2023-04-07 11:22] LABS: Basophils % (A) 1 %; Eosinophils # (A) 0.2 k/uL (0-0.7); Eosinophils % (A) 3 %; HCT 41.3 % (34.0-46.0); HGB 14.1 gm/dL (11.4-16.0); Lymphocytes # (A) 2.4 k/uL (1.0-4.8); Lymphocytes % (A) 40 %; MCH 29.7 pg (25.0-35.0); MCHC 34.1 g/dL (31.0-37.0); Monocytes # (A) 0.5 k/uL (0-1.0); Monocytes % (A) 8 %; Neutrophils # (A) 2.8 k/uL (1.3-7.7); Neutrophils % (A) 46 %; Platelet Count 193 k/uL (150-450); RBC 4.75 m/uL (3.80-5.40); RDW 13.8 % (11.5-15.5); WBC 6.1 k/uL (3.8-10.6)
[2023-04-07] MEDS ORDERED: NEOSTIGMINE 1 MG/ML 10 ML VIAL ONE (11:26)
[2023-04-07] MEDS ORDERED: LIDOCAINE 1% INJ 10MG/ML (20 ML MDV) ONE (11:26)
[2023-04-07] MEDS ORDERED: KETOROLAC 30 MG/ML 1 ML VIAL ONE (11:26)
[2023-04-07] MEDS ORDERED: SUCCINYLCHOLINE CHLORIDE 200 MG/10 ML VIAL IV ONE (11:26)
[2023-04-07] MEDS ORDERED: HYDROmorphone (PF) 1 MG/ML ONE (11:26)
[2023-04-07] MEDS ORDERED: ROCURONIUM 10 MG/ML (5 ML VIAL) IV ONE (11:26)
[2023-04-07] MEDS ORDERED: PROPOFOL 10 MG/ML 20 ML VIAL IV ONE (11:26)
[2023-04-07] MEDS ORDERED: MIDAZOLAM 2 MG/2 ML VIAL ONE (11:26)
[2023-04-07] MEDS ORDERED: GLYCOPYRROLATE 0.2 MG/ML 2 ML VIAL ONE (11:26)
[2023-04-07] MEDS ORDERED: fentaNYL (PF) 50 MCG/ML 2 ML AMP ONE (11:26)
[2023-04-07] MEDS ORDERED: PHENYLEPHRINE-0.9% NACL SYG 1,000 MCG/10 ML SYRINGE ONE (11:26)
[2023-04-07] MEDS ORDERED: LIDOCAINE 0.5%-EPI 1:200,000 50 ML VIAL SQ ONE (12:01)
[2023-04-07 12:14] LABS: ALT 31 U/L (4-34); AST 26 U/L (14-36); African American GFR (CKD) >90 (>60 ml/min/1.73 sqM); Albumin 3.7 g/dL (3.5-5.0); Alkaline Phosphatase 80 U/L (38-126); Anion Gap 12 mmol/L; Blood Urea Nitrogen 18 mg/dL (7-17); Calcium 8.9 mg/dL (8.4-10.2); Carbon Dioxide 23 mmol/L (22-30); Chloride 104 mmol/L (98-107); Glucose 91 mg/dL (74-99); Non-African American GFR(CKD) 78 (>60 ml/min/1.73 sqM); Potassium 3.8 mmol/L (3.5-5.1); Sodium 139 mmol/L (137-145); Total Bilirubin 0.6 mg/dL (0.2-1.3); Total Protein 6.2 g/dL (6.3-8.2)
[2023-04-07] MEDS ORDERED: LACTATED RINGERS 1,000 ML IV ONE (13:42)
[2023-04-07 14:11] LABS: Glucose,Whole Blood 145 mg/dL (70-110)
[2023-04-07] MEDS ORDERED: HYDROmorphone 1 MG/ML 1 ML SYRINGE IVP PRN (14:17)
[2023-04-07] MEDS: METOCLOPRAMIDE 5 MG/ML 2 ML VIAL IVP SCH ×3 (15:26→23:34)
[2023-04-07] MEDS: ONDANSETRON 4 MG/2 ML VIAL IVP SCH ×3 (15:26→23:34)
[2023-04-07] MEDS: ACETAMINOPHEN IV (For NPO) 1,000 MG in EMPTY BAG 1 BAG IVPB SCH ×2 (16:08→21:52)
[2023-04-07] MEDS: KETOROLAC 15 MG/ML 1 ML VIAL IVP SCH ×2 (18:13→23:33)
[2023-04-07] MEDS: D5-0.45% NACL WITH KCL 20MEQ/L 1,000 ML IV SCH ×2 (18:16→21:53)
[2023-04-07] MEDS: SIMETHICONE 40 MG/0.6 ML DROPS 2,000 MG/30 ML BOTTLE PO SCH ×2 (18:19→21:53)
[2023-04-07] MEDS: FAMOTIDINE 20 MG/2 ML VIAL IV SCH (21:52)
[2023-04-08] MEDS: ACETAMINOPHEN IV (For NPO) 1,000 MG in EMPTY BAG 1 BAG IVPB SCH ×2 (04:14→10:16)
[2023-04-08] MEDS: KETOROLAC 15 MG/ML 1 ML VIAL IVP SCH (05:16)
[2023-04-08] MEDS: METOCLOPRAMIDE 5 MG/ML 2 ML VIAL IVP SCH (05:16)
[2023-04-08] MEDS: ONDANSETRON 4 MG/2 ML VIAL IVP SCH (05:16)
[2023-04-08] MEDS: D5-0.45% NACL WITH KCL 20MEQ/L 1,000 ML IV SCH (05:17)
[2023-04-08] MEDS ORDERED: LEVOTHYROXINE 137 MCG TAB PO SCH (06:30)
[2023-04-08 07:35] LABS: Basophils % (A) 0 %; Eosinophils # (A) 0.1 k/uL (0-0.7); Eosinophils % (A) 1 %; HCT 39.7 % (34.0-46.0); HGB 13.7 gm/dL (11.4-16.0); Lymphocytes # (A) 1.9 k/uL (1.0-4.8); Lymphocytes % (A) 18 %; MCH 30.2 pg (25.0-35.0); MCHC 34.5 g/dL (31.0-37.0); MCV 87.6 fL (80.0-100.0); Mean Platelet Volume 10.5; Monocytes # (A) 0.7 k/uL (0-1.0); Monocytes % (A) 6 %; Neutrophils # (A) 7.8 k/uL (1.3-7.7); Neutrophils % (A) 74 %; Platelet Count 202 k/uL (150-450); RBC 4.53 m/uL (3.80-5.40); RDW 13.9 % (11.5-15.5); WBC 10.6 k/uL (3.8-10.6)
[2023-04-08 07:58] LABS: African American GFR (CKD) >90 (>60 ml/min/1.73 sqM); Anion Gap 10 mmol/L; Blood Urea Nitrogen 12 mg/dL (7-17); Calcium 8.8 mg/dL (8.4-10.2); Carbon Dioxide 26 mmol/L (22-30); Chloride 105 mmol/L (98-107); Glucose 115 mg/dL (74-99); Non-African American GFR(CKD) 84 (>60 ml/min/1.73 sqM); Potassium 3.8 mmol/L (3.5-5.1); Sodium 141 mmol/L (137-145)
[2023-04-08] MEDS: FAMOTIDINE 20 MG/2 ML VIAL IV SCH (08:33)
[2023-04-08] MEDS: SIMETHICONE 40 MG/0.6 ML DROPS 2,000 MG/30 ML BOTTLE PO SCH (08:34)
[2023-04-08] MEDS ORDERED: PREGABALIN 75 MG CAP PO SCH (09:00)
[2023-04-08] MEDS ORDERED: ASPIRIN 81 MG PO SCH (09:00)
[2023-04-08] MEDS ORDERED: ENOXAPARIN 30 MG/0.3 ML SYRINGE SQ SCH (09:00)
[2023-04-08] MEDS ORDERED: CEVIMELINE 30 MG CAP PO SCH (09:00)
[2023-04-08] MEDS ORDERED: LOSARTAN 50 MG TAB PO SCH (09:00)
[2023-04-08] MEDS: LACTATED RINGERS 1,000 ML IV SCH (09:05)
[2023-04-08 09:14] VITALS: BP 114/72; PULSE 80; RESP 20; TEMP 97.2
--- NOTE | 2023-04-08 09:20 | P.OP ---
Date of Procedure: 04/07/23 Description of Procedure: SURGEON: DEYSI LUO MD PREOPERATIVE DIAGNOSES: 1. Symptomatic paraesophageal diaphragmatic hiatal hernia. 2. Gastroesophageal reflux disease. 3. Hypertensive heart disease 4. Sjogren's disease 5. Postoperative vomiting 6. History of transient ischemic attack 7. Diabetes type 2, [id number] 8. Morbid obesity due to excess calories, BMI 35.1 9. Hyperlipidemia 10. Depressive disorder 11. Neuropathy POSTOPERATIVE DIAGNOSES: 1. Paraesophageal midline diaphragmatic hernia, 6 x 6 cm, with incarceration. =2. Gastroesophageal reflux disease. 3. Hypertensive heart disease 4. Sjogren's disease 5. Postoperative vomiting 6. History of transient ischemic attack 7. Diabetes type 2, [id number] 8. Morbid obesity due to excess calories, BMI 35.1 9. Hyperlipidemia 10. Depressive disorder 11. Neuropathy OPERATION: 1. Robotic-assisted da Ivett Xi laparoscopic repair of incarcerated paraesophageal hiatal hernia, 6 x 6 cm, with Alford Biopatch A 8 x 8 cm. 2. Intraoperative esophagogastroduodenoscopy ANESTHESIA: General with local anesthetic. ESTIMATED BLOOD LOSS: 5 mL SPECIMENS REMOVED: None COMPLICATIONS: None. Condition: stable Disposition: floor FINDINGS: 1. Midline incarcerated paraesophageal hiatal hernia 6 x 6 cm 2. Intraoperative upper endoscopy confirms complete closure of hiatal hernia from Hill grade 3 to Hill grade 1 3. Intraesophageal length over 2 cm INDICATIONS: The patient is a 62-year-old female who presents with gastroesophageal reflux disease poorly controlled despite medications, and a symptomatic diaphragmatic hiatal hernia. Preoperative workup including upper endoscopy demonstrated a sliding hiatal hernia. Given the severity of symptoms, the patient had elected for surgical intervention. Benefits and risks including bleeding, infection, recurrence, dysphagia, injury to the lung, need for further surgery was described at length. Informed consent was obtained. DESCRIPTION: The patient was brought into the operating room and placed in supine position. Preoperatively the patient had received heparin subcutaneously for DVT prophylaxis. After general induction, the abdomen was prepped and draped in standard sterile fashion. The patient had previously voided prior to coming to the operating room. Ioban draping was placed along the abdomen. A timeout protocol was confirmed with the surgical team, for which the patient's name, procedure to be performed including DVT prophylaxis with bilateral SCDs, and preoperative antibiotics were also confirmed. A robotic da Ivett Xi system was prepped and primed. At 12 cm from the xiphoid to just below the umbilicus, proposed port sites were marked with indelible marker along the left axillary line, left mid-clavicular line with each ports were marked 10 cm from each other. A 5 mm 0 degrees laparoscopic trocar entry was performed along the left upper quadrant. The abdomen was insufflated to 15 mmHg pressure was tolerated well. Diagnostic laparoscopy demonstrated no injury to bowel, viscera, or mesentery. No injury had occurred to the small bowel or viscera. The liver was smooth consistent with two-week high-protein low-carb diet. Extremely large paraesophageal hiatal hernia with obstruction along the hiatus was confirmed with an incarcerated type. Next, one 8 mm robotic port was placed along the right upper abdomen. An 8-mm port was were placed along the right lateral lateral abdominal wall. The camera 8-mm port was maintained along the epigastrium. Another 12 mm port was placed along the left upper abdominal wall after exchanging the 5 mm port. Please note that the ports were placed at least 20 cm away from the target anatomy. Care was taken to check that each robotic arm were safely away from collision with the bed or the patient. At the epigastrium, a medium sized Pilar liver retractor was placed under direct visualization with the Iron Condenser Cleaner placed under the right shoulder of the patient. All robotic arms were used. The patient was repositioned in reverse Trendelenburg position at 21-degrees after lowering the bed. The robot was docked above the right side of the patient. Using a grasper for arm 3, a grasper for arm 1, including vessel sealer for arm 2, the robotic system was docked and primed as described. Instruments were interchanged by the casting assistant. I had sat at the console. The gastrohepatic ligament was cleaved using a vessel sealer. Next, the phrenoesophageal ligament was mobilized and the distal esophagus was mobilized circumferentially. The proximal 30% of the stomach involving the gastric cardia was incarcerated into the mediastinum. Extensive dissection with resection from the paraesophageal hiatal hernia sac was performed. No injury to the esophagus had performed. The vagus nerves were identified and protected from harm. The left and right crura was identified. Circumferentially, the hernia sac was excised and brought into the peritoneal cavity. Moderate dissection into the mediastinum was performed to release the esophagus into the abdominal cavity. The fatty tissue of the upper stomach was released from the mediastinum The paraesophageal hiatal hernia sac was also incised and divided from the esophagus. Care was taken to avoid any gastrotomy. The measured defect was consistent with 6 cm axial length and 6 cm in width. After dissection, the distal esophagus of 2+ cm was brought into the abdominal cavity. Once the hiatus and crura was dissected, 2-0 VLOC nonabsorbable suture was placed to reapproximate the diaphragmatic hiatus posteriorly. To buttress the repair, a Alford Biopatch A was prepared along the back table and cut in half of a irby-hole fashion as to reinforce the repair as an underlay. The mesh was placed along the crural repair and tagged using horizontal mattress sutures using 2-0 VLOC. I went to the head of the bed to perform intraoperative esophagogastroduodenoscopy. An Olympus gastroscope was passed through posterior oropharynx. Retroflexion of the scope confirmed a Hill grade 1 lower esophageal valve. The stomach had been desufflated. No evidence of leaks were found of the esophagus or stomach. The GI tract with desufflated This concluded the endoscopic portion of the case. The robot was undocked from the patient. I re-scrubbed into the case. All instruments and pneumoperitoneum and specimens were evacuated from the abdominal cavity. Incisions were reapproximated using 4-0 Monocryl in an interrupted subcuticular fashion. Liquid glue was applied to the skin. Local anesthetic was infiltrated in all wounds for postop analgesia. At the end of the procedure, needle, sponge, and instrument count was verified correct by the ag equipment field service technician. The patient had tolerated the procedure well and was taken to the postanesthesia unit in stable condition.
[2023-04-08 11:41] VITALS: BMI 35.1
--- NOTE | 2023-04-08 12:49 | FL ---
EXAMINATION TYPE: FL esophagus cervic/pharynx DATE OF EXAM: 04/08/2023 HISTORY: Postop hiatal hernia repair. COMPARISON: Esophagram 01/03/2023 TECHNIQUE: A single contrast esophagram is performed utilizing Isovue 370. A total of 2 seconds of fluoroscopic time was utilized during procedure and 132 images obtained. Total dose area product (DA P) in uGy*m?, mGy*cm? (or similar) : 6425.29. FINDINGS: Post surgical changes from hiatal hernia repair. No evidence for leak or obstruction. Contrast easily passes into the stomach from the esophagus. No evidence for hiatal hernia. IMPRESSION: Post surgical changes from hiatal hernia without evidence for leak or obstruction.
--- NOTE | 2023-04-08 13:16 | P.DS ---
Providers Date of admission: 04/07/23 Expected date of discharge: 04/08/23 Attending physician: Nithya Barfield Consults: 04/07/23 07:34 Consult Physician Routine Consulting Provider: [facility] Consult Reason/Comments: [facility] Do you want consulting provider notified?: Yes Primary care physician: Britton Rangel [facility] Course: POSTOPERATIVE DIAGNOSES: 1. Paraesophageal midline diaphragmatic hernia, 6 x 6 cm, with incarceration. 2. Gastroesophageal reflux disease. 3. Hypertensive heart disease 4. Sjogren's disease 5. Postoperative vomiting 6. History of transient ischemic attack 7. Diabetes type 2, [id number] 8. Morbid obesity due to excess calories, BMI 35.1 9. Hyperlipidemia 10. Depressive disorder 11. Neuropathy COURSE: This 62-year-old female with severe gastroesophageal reflux disease uncontrolled with antacids including high-dose therapy. Robotic hiatal hernia was described. Features of large incarcerated paraesophageal hiatal hernia. Postoperatively, reflux had resolved. Esophagram was unremarkable. Patient was stable for discharge. Hiatal hernia diet was reviewed in detail. Telehealth in 3 days. Procedures: OPERATION: 1. Robotic-assisted da Ivett Xi laparoscopic repair of incarcerated paraesophageal hiatal hernia, 6 x 6 cm, with Perry Biopatch A 8 x 8 cm. 2. Intraoperative esophagogastroduodenoscopy ANESTHESIA: General with local anesthetic. ESTIMATED BLOOD LOSS: 5 mL SPECIMENS REMOVED: None COMPLICATIONS: None. Condition: stable Disposition: floor FINDINGS: 1. Midline incarcerated paraesophageal hiatal hernia 6 x 6 cm 2. Intraoperative upper endoscopy confirms complete closure of hiatal hernia from Hill grade 3 to Hill grade 1 3. Intraesophageal length over 2 cm Patient Condition at Discharge: Good Plan - Discharge Summary Discharge Rx Participant: Yes New Discharge Prescriptions: New Ibuprofen [Motrin] 600 mg PO Q8HR PRN #30 tab PRN Reason: Pain Acetaminophen Tab [Tylenol Tab] 1,000 mg PO Q6HR PRN #30 tablet PRN Reason: Pain Simethicone 40 mg/0.6 ml Drops [Mylicon Drops] 80 mg PO Q6HR PRN #30 ml PRN Reason: Abdominal Distention Continue Pravastatin Sodium [Pravachol] 30 mg PO HS DULoxetine HCL [Cymbalta] 60 mg PO BID Pregabalin [Lyrica] 150 mg PO TID Aspirin 81 mg PO DAILY amLODIPine [Norvasc] 5 mg PO HS Cevimeline [Evoxac] 30 mg PO TID Losartan [Cozaar] 50 mg PO QAM Levothyroxine Sodium [Synthroid] 137 mcg PO QAM metFORMIN HCL [Glucophage] 500 mg PO PC-LUNCH Zolpidem Tartrate [Ambien] 5 mg PO HS Discontinued Pantoprazole Sodium [Protonix] 40 mg PO BID Discharge Medication List Pravastatin Sodium [Pravachol] 30 mg PO HS 10/31/17 [History] DULoxetine HCL [Cymbalta] 60 mg PO BID 06/14/18 [History] Aspirin 81 mg PO DAILY 07/02/22 [History] Cevimeline [Evoxac] 30 mg PO TID 07/02/22 [History] Levothyroxine Sodium [Synthroid] 137 mcg PO QAM 07/02/22 [History] Pregabalin [Lyrica] 150 mg PO TID 07/02/22 [History] amLODIPine [Norvasc] 5 mg PO HS 07/02/22 [History] Losartan [Cozaar] 50 mg PO QAM 09/30/22 [History] metFORMIN HCL [Glucophage] 500 mg PO PC-LUNCH 11/15/22 [History] Zolpidem Tartrate [Ambien] 5 mg PO HS 04/01/23 [History] Acetaminophen Tab [Tylenol Tab] 1,000 mg PO Q6HR PRN #30 tablet 04/08/23 [Rx] Ibuprofen [Motrin] 600 mg PO Q8HR PRN #30 tab 04/08/23 [Rx] Simethicone 40 mg/0.6 ml Drops [Mylicon Drops] 80 mg PO Q6HR PRN #30 ml 04/08/23 [Rx] Follow up Appointment(s)/Referral(s): Nithya Barfield MD [STAFF PHYSICIAN] - 04/12/23 (TELEHEALTH - will call you between 8 am and 8pm) Patient Instructions/Handouts: Laparoscopic Hiatal Hernia Repair (DC) Activity/Diet/Wound Care/Special Instructions: [facility] - will call you between 8 am and 8pm Liquid diet only for 2 weeks until Apr 21 No lifting over 4 pounds in 4 weeks, May 07September shower No soaking in bath tubs for 2 weeks, Apr 21 Please notify your surgeon if you develop nausea and vomiting including new onset of abdominal pain. Please ambulate at all times. Use Simethicone, Gas-X, Tylenol and ibuprofen or Aleve scheduled for the next 24-48 hours for best pain relief. Use ice along incisions for the today to prevent swelling. Please open, cut, crush pills larger than the size of a tic tack No carbonated beverages. No straws. Do not remove scopolamine patch for 3 days, if present Avoiding Gas Avoid drinking through a straw. Do not chew gum or tobacco. These actions cause you to swallow air, which produces excess gas in your stomach. Chew with your mouth closed. Avoid any foods that cause stomach gas and distention. These foods include corn, dried beans, peas, lentils, onions, broccoli, cauliflower and any food from the cabbage family. Avoid carbonated drinks, alcohol, citrus and tomato products. Carbonated drinks (sodas) are not allowed for the first six to eight weeks after surgery. After this time you can try them again in small amounts Clear Liquid Diet The first diet after surgery is the clear liquid diet. It includes the following liquids: Apple juice Cranberry juice Grape juice Chicken broth Beef broth Flavored gelatin (Jell-O) Decaf tea and coffee Caffeinated beverages are permitted based on tolerance Popsicles Canadian ice Full Liquid Diet The full liquid diet contains anything on the clear liquid diet, plus: Milk, soy, rice and almond (no chocolate) Cream of wheat, cream of rice, grits Strained creamed soups (no tomato or broccoli) Vanilla and strawberry-flavored ice cream Sherbet Blended, custard styled or whipped yogurt (plain or vanilla only) Vanilla and butterscotch pudding (no chocolate or coconut) Nutritional drinks including Ensure, Boost, Hinkle Instant Breakfast (no chocolate-flavored) Note: Dairy products, such as milk, ice cream and pudding, may cause diarrhea in some people just after surgery. You may need to avoid milk products. If so, substitute them with lactose-free beverages, such as soy, rice, Lactaid or almond milks. Discharge Disposition: HOME SELF-CARE
[2023-04-08] MEDS ORDERED: ZOLPIDEM 5 MG TAB PO SCH (21:00)
[2023-04-08] MEDS ORDERED: amLODIPine 5 MG TAB PO SCH (21:00)
== END 2023-04-08 14:40 | disposition home or self-care (01) ==
LOC: OR 09:59 → 4SSUR 14:00 → OR 04-08 14:40
PROVIDERS: ATTEND Surgery Plastic and Reconstructive Surgery
DX: K44.0 Diaphragmatic hernia with obstruction, without gangrene (principal); K21.9 Gastro-esophageal reflux disease without esophagitis; M35.00 Sjogren syndrome, unspecified; I11.9 Hypertensive heart disease without heart failure; E66.01 Morbid (severe) obesity due to excess calories; E78.5 Hyperlipidemia, unspecified; F32.A Depression, unspecified; E11.40 Type 2 diabetes mellitus with diabetic neuropathy, unspecified; I63.9 Cerebral infarction, unspecified; I10 Essential (primary) hypertension; M19.90 Unspecified osteoarthritis, unspecified site; E07.9 Disorder of thyroid, unspecified; Z85.850 Personal history of malignant neoplasm of thyroid; Z90.49 Acquired absence of other specified parts of digestive tract; Z98.890 Other specified postprocedural states; Z83.2 Family history of diseases of the blood and blood-forming organs and certain disorders involving the immune mechanism; Z79.890 Hormone replacement therapy; Z79.82 Long term (current) use of aspirin; Z79.891 Long term (current) use of opiate analgesic; Z79.1 Long term (current) use of non-steroidal anti-inflammatories (NSAID); Z79.84 Long term (current) use of oral hypoglycemic drugs; Z79.899 Other long term (current) drug therapy; Z88.8 Allergy status to other drugs, medicaments and biological substances; Z88.5 Allergy status to narcotic agent; Z86.73 Personal history of transient ischemic attack (TIA), and cerebral infarction without residual deficits; Z91.048 Other nonmedicinal substance allergy status; Z68.35 Body mass index [BMI] 35.0-35.9, adult
CPT/HCPCS: 43235; 43282; S2900; 74210; 80048; 80053; 85025; 94760

== ENCOUNTER → 2023-05-10 | Outpatient (CLI) | payer MEDICARE, OTHER ==
--- NOTE | 2023-05-10 16:45 | P.SLEEP ---
History of Present Illness H&P Date: 05/10/23 This is a 62-year-old female patient was coming in with symptoms of loud snoring, hypersomnia and fatigue that has evolved over the past few years. Note that the patient has had similar was many years back and back in 2015, the patient was further investigated for sleep apnea the patient underwent a screening polysomnography. At that time, the patient did not show any significant sleep breathing disorder and her AHI was less than 5. She demonstrated some sleep fragmentation frequent nocturnal arousals. Nevertheless, back then, she did not qualify for CPAP therapy. Over this past 8 years, the patient gained around 35 pounds. Her condition has gotten worse. She is going to bed at around 8 PM and she is waking up 4 AM in the morning. Presently continues to be fragmented as the patient wakes up at least 3 times the middle of the night. She essentially gets up to use the bathroom. No naps during the day. She drinks 2 glasses of coffee in the morning. No sleepwalking. No sleep talking. She prefers to sleep on her side. No head trauma. No substance abuse. She also has a component of insomnia, his sleep onset insomnia and over the years she has been maintained on Ambien and the dose has been reduced on 5 mg by mouth daily. She has chronic eye and mouth dryness. She has hyperlipidemia, diabetes mellitus maternal metformin and hypertension. No myocardial infarction. No stroke. No congestion heart failure. Review of Systems Constitutional: Reports daytime sleepiness, Reports fatigue, Reports weight gain Eyes: denies as per HPI, denies blurred vision, denies bulging eye, denies decreased vision, denies diplopia, denies discharge, denies dry eye, denies irritation, denies itching, denies pain, denies photophobia, denies loss of peripheral vision, denies loss of vision, denies tunnel vision/blind spots Ears: deny: decreased hearing, ear discharge, earache, tinnitus Ears, nose, mouth and throat: Reports as per HPI Breasts: absent: as per HPI, change in shape, gynecomastia, masses, nipple discharge, pain, skin changes, swelling Cardiovascular: Reports as per HPI Respiratory: Reports snoring Gastrointestinal: Reports as per HPI Genitourinary: Reports as per HPI Menstruation: Reports as per HPI Musculoskeletal: Reports as per HPI Musculoskeletal: absent: ankle pain, ankle stiffness, ankle swelling Integumentary: Reports as per HPI Neurological: Reports as per HPI Psychiatric: Reports as per HPI Endocrine: Reports as per HPI, Reports fatigue Hematologic/Lymphatic: Reports as per HPI Allergic/Immunologic: Reports as per HPI Past Medical History Past Medical History: Cancer, CVA/TIA, Diabetes Mellitus, GERD/Reflux, Hyperlipidemia, Hypertension, Osteoarthritis (OA), Thyroid Disorder Additional Past Medical History / Comment(s): Hx TIA X2, last 8 yrs ago. Hx ulcer at age 20, hx thyroid cancer with surgical removal many yrs ago. History of Any Multi-Drug Resistant Organisms: None Reported Past Surgical History: Back Surgery, Bladder Surgery, Cholecystectomy, Orthopedic Surgery, Tubal Ligation Additional Past Surgical History / Comment(s): Thyroidectomy, spinal fusion X2, bilateral shoulder surgery, right foot surgery, bladder sling, EGD. Past Anesthesia/Blood Transfusion Reactions: Motion Sickness, Postoperative Nausea & Vomiting (PONV) Past Psychological History: No Psychological Hx Reported Smoking Status: Never smoker Past Alcohol Use History: None Reported Past Drug Use History: None Reported - Past Family History Sister(s) Family Medical History: Deep Vein Thrombosis (DVT) Medications and Allergies Home Medications Medication Instructions Recorded Confirmed Type Pravastatin Sodium [Pravachol] 30 mg PO HS 10/31/17 04/07/23 History DULoxetine HCL [Cymbalta] 60 mg PO BID 06/14/18 04/07/23 History Aspirin 81 mg PO DAILY 07/02/22 04/07/23 History Cevimeline [Evoxac] 30 mg PO TID 07/02/22 04/07/23 History Levothyroxine Sodium [Synthroid] 137 mcg PO QAM 07/02/22 04/07/23 History Pregabalin [Lyrica] 150 mg PO TID 07/02/22 04/07/23 History amLODIPine [Norvasc] 5 mg PO HS 07/02/22 04/07/23 History Losartan [Cozaar] 50 mg PO QAM 09/30/22 04/07/23 History metFORMIN HCL [Glucophage] 500 mg PO PC-LUNCH 11/15/22 04/07/23 History Zolpidem Tartrate [Ambien] 5 mg PO HS 04/01/23 04/07/23 History Acetaminophen Tab [Tylenol Tab] 1,000 mg PO Q6HR PRN #30 tablet 04/08/23 Rx Ibuprofen [Motrin] 600 mg PO Q8HR PRN #30 tab 04/08/23 Rx Simethicone 40 mg/0.6 ml Drops 80 mg PO Q6HR PRN #30 ml 04/08/23 Rx [Mylicon Drops] Allergies Allergy/AdvReac Type Severity Reaction Status Date / Time propoxyphene napsylate Allergy Swelling Verified 04/07/23 10:23 [From Darvocet-N 100] adhesive tape AdvReac Itching, Verified 04/07/23 10:23 and takes her skin off prednisone AdvReac flushing Verified 04/07/23 10:23 Physical Exam BP is 120/80, pulse is 88, respirations 18, temperature is 97.4, pulse ox is 99% on room air, weight is 202 pounds, body mass index is 35.7 and [place] score is at 3 Gen. appearance the patient is calm and comfortable, not in distress.The patient appeared well nourished and normally developed. Vital signs as documented. Head exam is unremarkable. No scleral icterus or corneal arcus noted. Neck is without jugular venous distension, thyromegaly, or carotid bruits. The patient is a Mallampati class IV. Carotid upstrokes are brisk bilaterally. Lungs are clear to auscultation and percussion. Cardiac exam reveals the PMI to be normally sized and situated. Rhythm is regular. First and second heart sounds normal. No murmurs, rubs or gallops. Abdominal exam reveals normal bowel sounds, no masses, no organomegaly and no aortic enlargement. Extremities are nonedematous and both femoral and pedal pulses are normal. Examination of the skin revealed no evidence of significant rashes, suspicious appearing nevi or other concerning lesions.Neurologically, the patient is awake and alert and the patient does not have any focal neurological deficit. Cranial nerves are essentially intact. Assessment and Plan Plan: Hypersomnia and sleepiness with increased suspicion for obstructive sleep apnea. The patient is study back in 2014 and she tested negative and over the past 8 years the patient has gained approximately 37 pounds and she is coming in for evaluation. There is an increased concern for sleep apnea this point in time. Sleep onset insomnia maintain on Ambien on long-term basis at a dose of 5 mg by mouth daily. She is able to generate and maintain sleep while on this treatment. Obesity with interval weight gain and current body mass index is 35.7 History of TIA 2 History of thyroid cancer with previous thyroidectomy Hypertension Hyperlipidemia Diabetes mellitus type 2 Osteoarthritis Plan Will reevaluate this patient and order another screening polysomnography and evaluate her sleep architecture, ability to maintain an generate sleep, and rule out any underlying significant sleep breathing disorder and further recommendations are to follow on treatment based on the results of the sleep study. Continue Ambien for sleep induction as the patient has been taken this medication on a long-term basis. We'll continue to follow. Sleep Note - Sleep Note Sleep Note: Temperature: Pulse Rate: Respiratory Rate: Blood Pressure: SpO2: Height: Weight: BMI: Neck Circumference:
== END ==
LOC: 3 N SLEEP 14:22
PROVIDERS: ATTEND Internal Medicine Critical Care Medicine
DX: G47.10 Hypersomnia, unspecified (principal); G47.00 Insomnia, unspecified; E66.9 Obesity, unspecified; I10 Essential (primary) hypertension; E78.5 Hyperlipidemia, unspecified; E11.9 Type 2 diabetes mellitus without complications; K21.9 Gastro-esophageal reflux disease without esophagitis; M19.90 Unspecified osteoarthritis, unspecified site; Z86.73 Personal history of transient ischemic attack (TIA), and cerebral infarction without residual deficits; Z85.850 Personal history of malignant neoplasm of thyroid; Z79.899 Other long term (current) drug therapy; Z79.82 Long term (current) use of aspirin; Z88.8 Allergy status to other drugs, medicaments and biological substances; Z91.048 Other nonmedicinal substance allergy status; Z79.84 Long term (current) use of oral hypoglycemic drugs; Z79.890 Hormone replacement therapy
CPT/HCPCS: 99211

== ENCOUNTER 2023-06-02 19:37 | Outpatient (CLI) | payer MEDICARE, OTHER ==
--- NOTE | 2023-06-08 08:45 | SLS ---
SLEEP STUDY Polysomnography report. HISTORY OF PRESENT ILLNESS: This patient is coming in for a sleep study. The patient has hypersomnia and daytime sleepiness. Her sleep study that was done on 2014 was negative and over the past 8 years, the patient has gained around 37 pounds. She also has difficulty with sleep onset insomnia, maintained on Ambien 5 mg at bedtime. PERTINENT PHYSICAL FINDINGS: Height is 5 feet 3 inches, weight is 202, and BMI 35.8. TECHNICAL DESCRIPTION: The sleep evaluation of the patient consisted of clinical polysomnography, nocturnal respiratory battery, left and right anterior tibialis surface electromyography. The standard montage for the clinical polysomnography included the EEG, EOG, EMG, and EKG. Respiratory battery included measurements of nasal/buccal airflow, thoracic, and/or abdominal effort and intercostal surface EMG. Nocturnal oxyhemoglobin saturations were obtained by finger oximetry. Digital video and audio monitoring were done throughout the entire night to check or parasomnias. SLEEP ARCHITECTURE: Total time in bed was 384.0 minutes. Total sleep time was 317.5 minutes and sleep efficiency was 82.7%. Latency to sleep onset was 38 minute and latency to REM sleep was not recorded as the patient did not encounter REM sleep. The patient's overall sleep architecture was abnormal as the patient had over representation of stage 1 and stage 2 sleep, which were in order of 26.5% and 73.5% respectively and 0% stage 3 sleep. SLEEP CONTINUITY SUMMARY: The patient had a total arousal index of 19.1. The respiratory arousal index was 0.8. RESPIRATORY ANALYSIS: There were a total of 46 obstructive events recorded of which 0 obstructive apnea, 1 was mixed apneas, 45 was obstructive hypopneas, and the patient's AHI was 8.7. OXYGENATION ANALYSIS: The baseline pulse ox was 94%. Lowest oxygen saturation was 88% during non-REM sleep and the patient spent approximately 26 minutes of sleep time below pulse ox of 89%. ASSESSMENT: 1. Mild sleep apnea with an AHI of 8.7. 2. Abnormal sleep architecture with absent delta wave and REM sleep and significant over representation of stage 1 and stage 2 sleep. No REM sleep was encountered during this current sleep study. 3. Chronic hypersomnia. 4. History of sleep onset insomnia, and the patient has maintained on Ambien at 5 mg. 5. Obesity with BMI 35.7. 6. History of thyroid cancer with previous thyroidectomy. 7. Hypertension. 8. Hyperlipidemia. 9. Diabetes mellitus, type 2. 10.Osteoarthritis. 11.Previous history of transient ischemic attack x2. PLAN: We will discuss the findings with the patient. The patient will benefit from losing weight. I am going to also discuss with her the need for CPAP therapy. In general, the sleep apnea is mild, yet she does have significant sleep fragmentation and abnormalities of sleep architecture, which may potentially improve with CPAP therapy. Note that her disease is not positional. Continue Ambien for sleep induction. Encourage weight loss. See me back in the office for further discussion regarding treatment options. MMODL / IJN: [id number] /
== END 2023-06-03 04:30 | disposition home or self-care (01) ==
LOC: 3 N SLEEP 19:37
PROVIDERS: ATTEND Internal Medicine Critical Care Medicine
DX: G47.33 Obstructive sleep apnea (adult) (pediatric) (principal); G47.10 Hypersomnia, unspecified; G47.00 Insomnia, unspecified; E66.9 Obesity, unspecified; I10 Essential (primary) hypertension; E78.5 Hyperlipidemia, unspecified; E11.9 Type 2 diabetes mellitus without complications; M19.90 Unspecified osteoarthritis, unspecified site; Z98.890 Other specified postprocedural states; Z86.73 Personal history of transient ischemic attack (TIA), and cerebral infarction without residual deficits; Z91.048 Other nonmedicinal substance allergy status; Z88.8 Allergy status to other drugs, medicaments and biological substances; Z88.6 Allergy status to analgesic agent; Z79.82 Long term (current) use of aspirin; Z68.35 Body mass index [BMI] 35.0-35.9, adult
CPT/HCPCS: 95810

== ENCOUNTER 2023-10-05 06:47 | Day surgery (SDC) | payer MEDICARE, OTHER ==
[2023-10-05] MEDS: LACTATED RINGERS 1,000 ML IV SCH (07:29)
[2023-10-05 07:30] LABS: Glucose,Whole Blood 118 mg/dL (70-110)
[2023-10-05 07:31] VITALS: RESP 16; TEMP 97.1
[2023-10-05] MEDS ORDERED: PROPOFOL 10 MG/ML 20 ML VIAL IV ONE (07:45)
[2023-10-05] MEDS ORDERED: LIDOCAINE 1% INJ 10MG/ML (20 ML MDV) ONE (07:45)
--- NOTE | 2023-10-05 07:47 | P.GSHP ---
History of Present Illness H&P Date: 10/05/23 CHIEF COMPLAINT: GERD and colon screen HISTORY OF PRESENT ILLNESS: The patient is a 62-year-old female who presents with gastroesophageal reflux disease and need for colon screen. Upper and lower endoscopy were offered for further evaluation and management. PAST MEDICAL HISTORY: Please see list. PAST SURGICAL HISTORY: Please see list. MEDICATIONS: Please see list. ALLERGIES: Please see list. SOCIAL HISTORY: No illicit drug use FAMILY HISTORY: No reports of Crohn disease or ulcerative colitis. REVIEW OF ORGAN SYSTEMS: CONSTITUTIONAL: No reports of fevers or chills. GI: Denies any blood in stools or constipation. PHYSICAL EXAM: VITAL SIGNS: Stable GENERAL: Well-developed pleasant in no acute distress. HEENT: No scleral icterus. Extraocular movements grossly intact. Moist buccal mucosa. NECK: Supple without lymphadenopathy. CHEST: Unlabored respirations. Equal bilateral excursions. CARDIOVASCULAR: Regular rate and rhythm. Distal 2+ pulses. ABDOMEN: Soft, nondistended. MUSCULOSKELETAL: No clubbing, cyanosis, or edema. ASSESSMENT: 1. Gastroesophageal reflux disease 2. Colon screen. PLAN: 1. Recommend proceeding with an upper and lower endoscopy Past Medical History Past Medical History: Cancer, CVA/TIA, Diabetes Mellitus, GERD/Reflux, Hyperlipidemia, Hypertension, Osteoarthritis (OA), Thyroid Disorder Additional Past Medical History / Comment(s): Hx TIA X2, last 8 yrs ago. Hx ul cer at age 20, hx thyroid cancer with surgical removal many yrs ago. History of Any Multi-Drug Resistant Organisms: None Reported Past Surgical History: Back Surgery, Bladder Surgery, Cholecystectomy, Orthopedic Surgery, Tubal Ligation Additional Past Surgical History / Comment(s): Thyroidectomy, spinal fusion X2, bilateral shoulder surgery, right foot surgery, bladder sling, EGD. lft ring finger joint replacement Past Anesthesia/Blood Transfusion Reactions: Motion Sickness, Postoperative Nausea & Vomiting (PONV) Smoking Status: Never smoker - Past Family History Sister(s) Family Medical History: Deep Vein Thrombosis (DVT) Medications and Allergies Home Medications Medication Instructions Recorded Confirmed Type Pravastatin Sodium [Pravachol] 30 mg PO HS 10/31/17 10/05/23 History DULoxetine HCL [Cymbalta] 60 mg PO BID 06/14/18 10/05/23 History Aspirin 81 mg PO DAILY 07/02/22 09/29/23 History Cevimeline [Evoxac] 30 mg PO TID 07/02/22 09/29/23 History Levothyroxine Sodium [Synthroid] 137 mcg PO QAM 07/02/22 10/05/23 History Pregabalin [Lyrica] 150 mg PO TID 07/02/22 10/05/23 History amLODIPine [Norvasc] 5 mg PO HS 07/02/22 10/05/23 History Losartan [Cozaar] 100 mg PO QAM 09/30/22 10/05/23 History metFORMIN HCL [Glucophage] 500 mg PO PC-LUNCH 11/15/22 10/05/23 History Zolpidem Tartrate [Ambien] 5 mg PO HS 04/01/23 10/05/23 History Allergies Allergy/AdvReac Type Severity Reaction Status Date / Time propoxyphene napsylate Allergy Swelling Verified 10/05/23 07:24 [From Clarat-N 100] adhesive tape AdvReac Itching, Verified 10/05/23 07:24 and takes her skin off prednisone AdvReac flushing Verified 10/05/23 07:24 Surgical - Exam Vital Signs Temp Pulse Resp BP Pulse Ox 97.1 F L 88 16 137/80 98 10/05/23 07:25 10/05/23 07:25 10/05/23 07:25 10/05/23 07:25 10/05/23 07:25 Results - Labs Abnormal Lab Results - Last 24 Hours (Table) 10/05/23 Range/Units 07:28 POC Glucose (mg/dL) 118 H (70-110) mg/dL
[2023-10-05 09:05] VITALS: BP 131/72; PULSE 78
--- NOTE | 2023-10-06 17:45 | P.PCN ---
Date of Procedure: 10/05/23 Description of Procedure: PREOPERATIVE DIAGNOSIS: Gastroesophageal reflux disease. History of hiatal hernia status post repair Morbid obesity. POSTOPERATIVE DIAGNOSIS: Severe gastritis Gastroesophageal reflux disease. Morbid obesity. Diaphragmatic hiatal hernia, recurrent OPERATION: Esophagogastroduodenoscopy with biopsies along esophagus, antrum and duodenum SURGEON: Nithya Barfield MD ANESTHESIA: MAC. INDICATIONS: The patient is a 62-year-old female who presents with reflux disease and epigastric pain. Benefits and risks of the procedure were described. Informed consent was obtained. DESCRIPTION: The patient was brought into the endoscopy suite and laid in the left lateral decubitus position. An Olympus gastroscope was passed along the posterior oropharynx down to the distal esophagus where the squamocolumnar junction was encountered at 35 cm from the incisors. The stomach was entered and no bile reflux was found. Additional findings are listed below. Biopsies with cold forceps were obtained of the antrum. The first through third portion of the duodenum was examined. Retroflexion of the scope confirmed Hill grade 1 lower esophageal valve. The squamocolumnar junction demonstrated LA grade B erosive esophagitis. The stomach was desufflated. The patient tolerated the procedure w ell. FINDINGS: Squamocolumnar junction 35 cm from the incisors. Diaphragmatic hiatus at 36 cm. Hiatal hernia, 1 cm Hill grade 1 lower esophageal valve. LA grade B erosive esophagitis. Biopsies obtained Biopsies obtained of the duodenum. Severe gastritis, acute on chronic with biopsies obtained RECOMMENDATIONS: 1. Omeprazole 40 mg daily prescribed 2. Recommend evaluation of gastric bypass for uncontrolled reflux disease
--- NOTE | 2023-10-08 16:23 | P.PCN ---
Date of Procedure: 10/05/23 Description of Procedure: Colonoscopy grade 2 prep. No diverticulosis. Repeat colonoscopy 5 years. PREOPERATIVE DIAGNOSIS: Colonoscopy screening. POSTOPERATIVE DIAGNOSIS: Colonoscopy screening. OPERATION: Colonoscopy to the cecum, ileocecal valve and appendiceal orifice. SURGEON: Nithya Barfield MD. ANESTHESIA: MAC. INDICATIONS: The patient is a 62-year-old female who presents for colonoscopy screening. Benefits and risks were described and informed consent was obtained. DESCRIPTION OF PROCEDURE: The patient had undergone Sutab prep. The patient had been brought into the operating room and laid in the left lateral decubitus position. After adequate intravenous sedation, the rectum was examined with 2% lidocaine jelly. No external hemorrhoids were encountered. The rectal tone was within normal limits. No lesions were palpated in the rectal vault. An Olympus colonoscope was advanced until the cecum, ileocecal valve and appendiceal orifice were clearly viewed. The prep was good. No scattered diverticulosis was encountered. No colonic polyps were found. No evidence of focal colitis was found. Retroflexion of the scope demonstrated grade 1 internal hemorrhoids without active bleeding or inflammation. The colon was desufflated. The patient had tolerated the procedure well. Withdrawal time was over 6 minutes. FINDINGS: Aronchick preparation quality scale 2+ (1-5) Internal hemorrhoids, grade 2 External prolapsed hemorrhoids, grade 2 No arteriovenous malformations. No adenomatous polyps. No focal colitis. RECOMMENDATIONS: Lower endoscopy in 5 years, 2028 Plan - Discharge Summary Discharge Rx Participant: No New Discharge Prescriptions: New Omeprazole [PriLOSEC] 40 mg PO DAILY #14 cap Continue Pravastatin Sodium [Pravachol] 30 mg PO HS DULoxetine HCL [Cymbalta] 60 mg PO BID Pregabalin [Lyrica] 150 mg PO TID Aspirin 81 mg PO DAILY amLODIPine [Norvasc] 5 mg PO HS Cevimeline [Evoxac] 30 mg PO TID Losartan [Cozaar] 100 mg PO QAM Levothyroxine Sodium [Synthroid] 137 mcg PO QAM metFORMIN HCL [Glucophage] 500 mg PO PC-LUNCH Zolpidem Tartrate [Ambien] 5 mg PO HS Discharge Medication List Pravastatin Sodium [Pravachol] 30 mg PO HS 10/31/17 [History] DULoxetine HCL [Cymbalta] 60 mg PO BID 06/14/18 [History] Aspirin 81 mg PO DAILY 07/02/22 [History] Cevimeline [Evoxac] 30 mg PO TID 07/02/22 [History] Levothyroxine Sodium [Synthroid] 137 mcg PO QAM 07/02/22 [History] Pregabalin [Lyrica] 150 mg PO TID 07/02/22 [History] amLODIPine [Norvasc] 5 mg PO HS 07/02/22 [History] Losartan [Cozaar] 100 mg PO QAM 09/30/22 [History] metFORMIN HCL [Glucophage] 500 mg PO PC-LUNCH 11/15/22 [History] Zolpidem Tartrate [Ambien] 5 mg PO HS 04/01/23 [History] Omeprazole [PriLOSEC] 40 mg PO DAILY #14 cap 10/05/23 [Rx] Follow up Appointment(s)/Referral(s): Nithya Barfield MD [STAFF PHYSICIAN] - 11/01/23 3:30 pm Patient Instructions/Handouts: *Surgery [facility] - (Anesthesia) Discharge Instructions Outpatient Surgery, Gastritis (DC), Diet for Stomach Ulcers and Gastritis (GEN), Colorectal Polyps (GEN), Colonoscopy (DC), Upper Endoscopy (DC) Activity/Diet/Wound Care/Special Instructions: Repeat colonoscopy 3 years, 2026 Discharge Disposition: HOME SELF-CARE
== END 2023-10-05 09:41 | disposition home or self-care (01) ==
LOC: ORWHC2ENDO 06:47
PROVIDERS: ATTEND Surgery Plastic and Reconstructive Surgery
DX: Z12.11 Encounter for screening for malignant neoplasm of colon (principal); K29.50 Unspecified chronic gastritis without bleeding; K63.5 Polyp of colon; K21.00 Gastro-esophageal reflux disease with esophagitis, without bleeding; E11.9 Type 2 diabetes mellitus without complications; E66.01 Morbid (severe) obesity due to excess calories; E78.5 Hyperlipidemia, unspecified; I10 Essential (primary) hypertension; K21.9 Gastro-esophageal reflux disease without esophagitis; K44.9 Diaphragmatic hernia without obstruction or gangrene; M19.90 Unspecified osteoarthritis, unspecified site; Z79.890 Hormone replacement therapy; Z85.850 Personal history of malignant neoplasm of thyroid; Z86.73 Personal history of transient ischemic attack (TIA), and cerebral infarction without residual deficits; Z88.8 Allergy status to other drugs, medicaments and biological substances; Z90.49 Acquired absence of other specified parts of digestive tract; Z98.51 Tubal ligation status; Z79.82 Long term (current) use of aspirin; Z79.84 Long term (current) use of oral hypoglycemic drugs
CPT/HCPCS: 88305; 45385; 43239; J2001; J2704

== ENCOUNTER → 2023-10-31 | Outpatient (CLI) | payer MEDICARE, OTHER ==
--- NOTE | 2023-10-31 19:52 | US ---
EXAMINATION TYPE: US thyroid st tissue head/neck DATE OF EXAM: 10/31/2023 COMPARISON: Thyroid ultrasound 06/11/2019, CT neck 10/31/2012 CLINICAL INDICATION: Female, 62 years old with history of Z85.850 PERSONAL HISTORY OF MALIGNANT NEOPL ASM OF; Thyroid CA rt side removed. GLAND SIZE: Right Lobe: Surgically absent Left Lobe: 5.2 x 1.9 x 2.6 cm, previously measured 5.1 x 1.7 x 2.0 cm Overall Parenchyma: heterogeneous Isthmus Thickness: .5 cm NODULES RIGHT: Surgically absent. No suspicious soft tissue within the thyroidectomy bed. LEFT: # of nodules measured on left: 0 ISTHMUS: # of nodules measured in the isthmus: 0 Bilateral neck scanned, no evidence of lymphadenopathy. 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 Diffuse heterogeneous appearance of the le ft thyroid lobe again demonstrated without discrete nodule.
== END | disposition home or self-care (01) ==
LOC: RADUSWWP 12:21
PROVIDERS: ATTEND Family Medicine
DX: E89.0 Postprocedural hypothyroidism (principal); Z85.850 Personal history of malignant neoplasm of thyroid
CPT/HCPCS: 76536

== ENCOUNTER → 2023-11-17 | Outpatient (CLI) | payer MEDICARE, OTHER ==
[2023-11-17 09:15] LABS: INR 0.9 (<1.2); Partial Thromboplastin Time 26.6 sec (22.0-30.0)
[2023-11-17 14:17] LABS: HCT 42.2 % (37.2-46.3); HGB 14.2 g/dL (12.0-15.0); MCH 29.2 pg (27.0-32.0); MCHC 33.6 g/dL (32.0-37.0); MCV 86.8 FL (80.0-97.0); Mean Platelet Volume 12.8 FL (9.5-12.2); NRBC Per 100 WBC 0 X 10*3/uL (0.00-0.01); Platelet Count 245 X 10*3/uL (140-440); RBC 4.86 X 10*6/uL (4.10-5.20); RDW 14.6 % (11.5-14.5); WBC 6.52 X 10*3/uL (4.50-10.00)
[2023-11-17 15:53] LABS: Iron 82 UG/DL (50-170); LDL Cholesterol,Calculated 94.4 mg/dL (0.0-131.0); Magnesium 2.1 mg/dL (1.5-2.4); Phosphorus 3.6 mg/dL (2.4-5.1)
[2023-11-17 15:54] LABS: % Iron Saturation 21.69 (12.00-45.00); ALT 27 U/L (8-44); AST 20 U/L (13-35); Albumin 4.3 g/dL (3.8-4.9); Albumin/Globulin Ratio 1.72 Ratio (1.60-3.17); Alkaline Phosphatase 119 U/L (41-126); Blood Urea Nitrogen 15.3 mg/dL (9.0-27.0); Calcium 9.4 mg/dL (8.7-10.3); Carbon Dioxide 21.5 mmol/L (21.6-31.8); Chloride 107 mmol/L (96-109); Ferritin 36.9 ng/mL (10.0-291.0); Globulin 2.5 g/dL (1.6-3.3); Glucose 116 mg/dL (70-110); Potassium 3.7 mmol/L (3.5-5.5); Sodium 142 mmol/L (135-145); Total Bilirubin 0.3 mg/dL (0.3-1.2); Total Iron Binding Capacity 378 UG/DL (228-460); Total Protein 6.8 g/dL (6.2-8.2)
[2023-11-18 14:44] LABS: Zinc, Serum 86 ug/dL (60-130)
== END | disposition home or self-care (01) ==
LOC: LABWHC1 08:09
PROVIDERS: ATTEND Surgery Plastic and Reconstructive Surgery
DX: K50.90 Crohn's disease, unspecified, without complications (principal); K91.2 Postsurgical malabsorption, not elsewhere classified; D50.8 Other iron deficiency anemias; E44.1 Mild protein-calorie malnutrition; E45 Retarded development following protein-calorie malnutrition; E55.9 Vitamin D deficiency, unspecified; K74.1 Hepatic sclerosis; N19 Unspecified kidney failure; T56.894A Toxic effect of other metals, undetermined, initial encounter
CPT/HCPCS: 84255; 84134; 84425; 80061; 80053; 82607; 82728; 82525; 82746; 83540; 83550; 83735; 84100; 84443; 84590; 84630; 85027; 85610; 85730; 82306; 83970; 83036; 80307; 36415; G0480; 80323

== ENCOUNTER → 2024-02-22 | Outpatient (CLI) | payer MEDICARE, OTHER ==
--- NOTE | 2024-02-26 14:38 | MM ---
Reason for Exam: Screening (asymptomatic). Last mammogram was performed 1 year(s) and 9 month(s) ago. Patient History: Menarche at age 14. First Full-Term at age 23. Postmenopausal. Other cancer, age 48. Hormonal Contraceptives for 5 years from age 20 until age 25. Cyst Aspiration on the Left side. 01/02/2003, Benign Ultrasound-Guided Cyst Aspiration on the left side. Maternal grandmother had breast cancer. Risk Values: Mesha 5 year model risk: 1.3%. NCI Lifetime model risk: 6.4%. Prior Study Comparison: 01/31/2019 Bilateral Screening Mammogram, [facility]. 06/23/2020 Bilateral Screening Mammogram, [facility]. 05/05/2022 Bilateral MG 3D screening mammo w/cad, [facility]. Tissue Density: There are scattered areas of fibroglandular density. Findings: Analyzed By CAD. The pattern is symmetrical. There is a rounded density in the upper outer left breast multiple adjacent calcifications. 4 markers in the left upper-outer breast. Significant interval change is identified. No suspicious groups of microcalcifications, spiculated or lobular masses, architectural distortion or other secondary signs of malignancy are mammographically apparent.The pattern is symmetrical. There is a rounded density in the upper outer left breast multiple adjacent calcifications. Core marker is in the left upper-outer breast. Correlation with the biopsy results is recommended. Calcifications may be developing at this level. This could be a skin 3:00 posterior position. Recommend correlation. Magnification views of the calcifications is not a skin lesion is recommended. No suspicious groups of microcalcifications, spiculated or lobular masses, architectural distortion or other secondary signs of malignancy are mammographically apparent. Overall Assessment: Incomplete: need additional imaging evaluation, BI-RAD 0 Management: Diagnostic Mammogram of the left breast. A negative mammogram report should not preclude additional follow up of suspicious palpable abnormalities. Patient should continue monthly self breast exam. A clinical breast exam by your physician is recommended on an annual basis and results should be correlated with mammographic findings. Note on Mesha scores and lifetime risk: 1. A Mesha score greater than 3% is considered moderate risk. If this is the case, consider specialist referral to assess eligibility for a risk reducing agent. 2. If overall lifetime risk for the development of breast cancer is 20% or higher, the patient may qualify for future screening with alternating mammogram and breast MRI. [facility], , 02/26/2024 2:34 PM4. Electronically signed and approved by: Juvenal Gregory D.O. Radiologis
== END | disposition home or self-care (01) ==
LOC: RADMAMWWP 12:02
PROVIDERS: ATTEND Family Medicine
DX: Z12.31 Encounter for screening mammogram for malignant neoplasm of breast
CPT/HCPCS: 77063; 77067

== ENCOUNTER → 2024-03-09 | Outpatient (CLI) | payer MEDICARE, OTHER ==
--- NOTE | 2024-03-09 14:34 | MM ---
Reason for Exam: Additional evaluation requested from abnormal screening. Last screening mammogram was performed less than 1 month ago. Patient History: Menarche at age 14. First Full-Term at age 23. Postmenopausal. Other cancer, age 48. Hormonal Contraceptives for 5 years from age 20 until age 25. Cyst Aspiration on the Left side. 01/02/2003, Benign Ultrasound-Guided Cyst Aspiration on the left side. Maternal grandmother had breast cancer. Risk Values: Mesha 5 year model risk: 1.3%. NCI Lifetime model risk: 6.4%. Prior Study Comparison: 04/30/2016 Bilateral Screening Mammogram, [facility]. 06/07/2017 Bilateral Screening Mammogram, [facility]. 01/31/2019 Bilateral Screening Mammogram, [facility]. 06/23/2020 Bilateral Screening Mammogram, [facility]. 05/05/2022 Bilateral MG 3D screening mammo w/cad, [facility]. 02/22/2024 Bilateral MG 3D screening mammo w/cad, [facility]. Tissue Density: Left: There are scattered areas of fibroglandular density. Findings: Analyzed By CAD. Nodular density upper outer left breast with internal calcifications was present in 2021. Progressive calculations are seen which likely reflect calcifications within a cyst. Continued follow-up is advised. Right breast is free of mass. No distortion seen. No suspicious mitral callus occasions. Overall Assessment: Probably benign, BI-RAD 3 Management: Diagnostic Mammogram of the left breast in 6 months. . Results were given to the patient verbally at the time of exam. Patient should continue monthly self-breast exams. A clinical breast exam by your physician is recommended on an annual basis. This exam should not preclude additional follow-up of suspicious palpable abnormalities. Note on Mesha scores and lifetime risk: 1. A Mesha score greater than 3% is considered moderate risk. If this is the case, consider specialist referral to assess eligibility for a risk reducing agent. 2. If overall lifetime risk for the development of breast cancer is 20% or higher, the patient may qualify for future screening with alternating mammogram and breast MRI. [facility], , 03/09/2024 2:31 PM. Electronically signed and approved by: Kevyn Calle M.D. Radiologis
== END | disposition home or self-care (01) ==
LOC: RADMAMWWP 13:15
PROVIDERS: ATTEND Family Medicine
CPT/HCPCS: 77061; 77065

== ENCOUNTER → 2024-06-27 | Day surgery (SDC) | payer MEDICARE, OTHER ==
[~2024-06-27] MED LIST changes: -ACETAMINOPHEN TAB 500 MG TAB PO PRN; +BENZOCAINE SPRAY 1 CAN TOPICAL PRN; -DEXAMETHASONE SOD PHOSPHATE 4 MG/ML 1 ML VIAL IVP STA; -HEPARIN SODIUM,PORCINE/PF 5,000 UNIT/0.5 ML SYRINGE SQ PRN; +MIDAZOLAM 2 MG/2 ML VIAL IV PRN; -ONDANSETRON 4 MG/2 ML VIAL IVP PRN; -SCOPOLAMINE 1 MG/72 HR PATCH TRANSDERM STA; -fentaNYL (PF) 50 MCG/ML 2 ML AMP IV PRN; +fentaNYL (PF) 50 MCG/ML 5 ML AMP IVP PRN
[2024-06-27] MEDS: IV FLUID CONTINUATION 1,000 ML IV ONE (10:29)
[2024-06-27 11:15] VITALS: TEMP 97.9
[2024-06-27] MEDS: BENZOCAINE SPRAY 1 EACH MM ONE (13:53)
[2024-06-27] MEDS: fentaNYL (PF) 50 MCG/ML 2 ML AMP IVP ONE (14:09)
[2024-06-27] MEDS: MIDAZOLAM 2 MG/2 ML VIAL IVP ONE ×2 (14:09→14:12)
[2024-06-27 14:24] VITALS: RESP 16
[2024-06-27 15:08] VITALS: PULSE 106
[2024-06-27 15:29] VITALS: BP 146/84
--- NOTE | 2024-06-27 17:24 | P.TEE ---
Description of Procedure(s): Procedure performed: Transesophageal Echocardiogram with color flow doppler, pulsed wave doppler and continuous wave doppler, moderate conscious sedation Moderate conscious sedation: Moderate conscious sedation was supplied with direct supervision of myself using Versed and Fentanyl. Complications: none Indications: CVA PROCEDURE: After the risks, benefits and alternatives of the above mentioned procedure was explained in detail with the patient, informed consent was obtained. Patient was brought to the lab in a fasting state. Patient was given IV Versed and Fentanyl for sedation. The throat was sprayed with Hurricane to anesthetize the throat. A lubricated Omni probe was then introduced into the esophagus and stomach and multiple views were obtained. 2D echo with color flow doppler, pulsed wave doppler and continuous wave doppler was utilized. Agitated saline bubbles were injected to assess for any intra-atrial shunt. The probe was then removed. Patient tolerated the procedure well. Patient was transferred to the post procedure area in stable and satisfactory condition. FINDINGS: 1. The aortic valve is tricuspid and function normally. 2. The mitral valve appears be normal with mild regurgitation. 3. Tricuspid valve appears to be normal. 4. The interatrial septum is intact. No evidence of PFO. 5. Left atrial appendage is free of clot. 6. Left ventricular ejection fraction 55%
== END ==
LOC: CATHCVL 10:00
PROVIDERS: ATTEND Internal Medicine
DX: I34.0 Nonrheumatic mitral (valve) insufficiency (principal); I10 Essential (primary) hypertension; E78.5 Hyperlipidemia, unspecified; E11.9 Type 2 diabetes mellitus without complications; E03.9 Hypothyroidism, unspecified; Z82.49 Family history of ischemic heart disease and other diseases of the circulatory system; Z88.6 Allergy status to analgesic agent; Z79.02 Long term (current) use of antithrombotics/antiplatelets; Z79.890 Hormone replacement therapy; Z79.899 Other long term (current) drug therapy; Z86.73 Personal history of transient ischemic attack (TIA), and cerebral infarction without residual deficits
CPT/HCPCS: 93312; 93320; 93325; 99152; J2250; J3010

== ENCOUNTER → 2024-08-29 | Outpatient (CLI) | payer MEDICARE, OTHER ==
--- NOTE | 2024-08-29 12:55 | MM ---
Reason for Exam: Follow-up at short interval from prior study. Last screening mammogram was performed 7 month(s) ago. Patient History: Menarche at age 14. First Full-Term at age 23. Postmenopausal. Other cancer, age 48. Hormonal Contraceptives for 5 years from age 20 until age 25. Cyst Aspiration on the Left side. 01/02/2003, Benign Ultrasound-Guided Cyst Aspiration on the left side. Maternal grandmother had breast cancer, age 50. Risk Values: Mesha 5 year model risk: 1.3%. NCI Lifetime model risk: 6.4%. Prior Study Comparison: 05/05/2022 Bilateral MG 3D screening mammo w/cad, [facility]. 02/22/2024 Bilateral MG 3D screening mammo w/cad, [facility]. 03/09/2024 Left MG 3D work up w/cad , [facility]. Tissue Density: Left: There are scattered areas of fibroglandular density. Findings: Analyzed By CAD. Nodular density upper outer left breast is smaller in size and demonstrates mural calcifications felt to reflect calcifications within the wall of a cyst or lesion. Currently the nodule measures 9 mm versus 15 mm previously maximal dimension. No new nodules seen. Scattered benign calcifications seen within the left breast. Overall Assessment: Probably benign, BI-RAD 3 Management: Diagnostic Mammogram of both breasts in 6 months. . Results were given to the patient verbally at the time of exam. Patient should continue monthly self-breast exams. A clinical breast exam by your physician is recommended on an annual basis. This exam should not preclude additional follow-up of suspicious palpable abnormalities. Note on Mesha scores and lifetime risk: 1. A Mesha score greater than 3% is considered moderate risk. If this is the case, consider specialist referral to assess eligibility for a risk reducing agent. 2. If overall lifetime risk for the development of breast cancer is 20% or higher, the patient may qualify for future screening with alternating mammogram and breast MRI. [facility], , 08/29/2024 12:52 PM. Electronically signed and approved by: Kevyn Calle M.D. Radiologis
== END | disposition home or self-care (01) ==
LOC: RADMAMWWP 12:29
PROVIDERS: ATTEND Family Medicine
DX: N64.89 Other specified disorders of breast (principal); R92.322 Mammographic fibroglandular density, left breast; R92.1 Mammographic calcification found on diagnostic imaging of breast; Z78.0 Asymptomatic menopausal state; Z80.3 Family history of malignant neoplasm of breast; Z92.0 Personal history of contraception
CPT/HCPCS: 77065; G0279; 77061